=== PATIENT | female | born 1945 | race Caucasian/White ===

== ENCOUNTER 2021-12-13 17:49 | Emergency (ER) | payer MEDICARE, SELFPAY ==
--- NOTE | ~2021-12-13 | XR_ITS ---
EXAMINATION: XR knee LT min 4V DATE: 12/13/2021 18:15 INDICATION: Left knee pain TECHNIQUE: Four views of the left knee were obtained. COMPARISON: None. FINDINGS: Alignment is normal. No fracture or osteochondral lesion. There is mild tricompartmental os teoarthritis characterized by tiny marginal osteophytes. There is a small joint effusion. Calcified a therosclerosis is noted. IMPRESSION: 1. Osteoarthritis and small joint effusion without acute osseous abnormality identified. Reviewed, dictated and finalized at location F. IMPRESSION: 1. Osteoarthritis and small joint effusion without acute osseous abnormality id entified.
--- NOTE | 2021-12-13 18:02 | ED.LOWEXIN ---
HPI - Extremity Injury (Lower) General Chief Complaint: Extremity Injury, Lower Stated Complaint: left knee pain Time Seen by Provider: 12/13/21 18:02 Source: patient and RN notes reviewed Mode of arrival: ambulatory Limitations: no limitations History of Present Illness HPI Narrative: 76-year-old female presents to the [facility] with complaints of left knee pain. Patient states approximately noon today she went to get out of her chair and hyperextended her knee. Has taken ibuprofen and applied ice. Called her primary care provider was advised to go get an x-ray No swelling or bruising noted. Does have good range of motion. Related Data Home Medications Medication Instructions Recorded Confirmed amlodipine 5 mg tablet 5 mg PO DAILY 12/13/21 12/13/21 ezetimibe 10 mg tablet 10 mg PO DAILY 12/13/21 12/13/21 flecainide 100 mg tablet 100 mg PO DAILY 12/13/21 12/13/21 hydrochlorothiazide 12.5 mg capsule 12.5 mg PO DAILY 12/13/21 12/13/21 lisinopril 40 mg tablet 40 mg PO DAILY 12/13/21 12/13/21 magnesium oxide 400 mg (241.3 mg 400 mg PO DAILY 12/13/21 12/13/21 magnesium) tablet metformin 500 mg tablet 500 mg PO DAILY 12/13/21 12/13/21 simvastatin 20 mg tablet 20 mg PO DAILY 12/13/21 12/13/21 Allergies Allergy/AdvReac Type Severity Reaction Status Date / Time Penicillins Allergy Mild RASH Unverified 12/13/21 17:52 clindamycin Allergy Unknown rash Verified 12/13/21 17:52 Review of Systems Review of Systems: All systems reviewed & are unremarkable except as noted in HPI and below Constitutional: Constitutional: Reports no additional constitutional complaints, Denies chills and Denies fever(s) Eyes: Eyes: Reports no additional eye complaints ENT: Reports system reviewed and no additional complaints, except as documented Cardiovascular: Cardiovascular: Reports no additional cardiovascular complaints Respiratory: Respiratory: Reports no additional respiratory complaints Gastrointestinal: Gastrointestinal: Reports no additional gastrointestinal complaints Musculoskeletal: Musculoskeletal: Reports as per HPI and Reports arthralgias (left knee) Integumentary/Breasts: Skin/Breast: Reports system reviewed and no additional complaints, except as docu Neurologic: Reports system reviewed and no additional complaints, except as documented Psychiatric: Psychiatric: Reports no additional psychiatric complaints Allergic/Immunologic: Allergic/Immunologic: Reports no additional allergic/immunologic complaints [facility] Past Medical History Medical History (Updated 12/13/21 @ 18:38 by Brenda Perales APRN) High cholesterol History of high blood pressure Social History Social History (Updated 12/13/21 @ 18:36 by Brenda Perales APRN) Occupation/Education: retired Gender identity (if verbalized by the patient): Female Comments At the time of my signature, I reviewed and agree with the nursing past medical, surgical, social, and family history. There is no relevant family history pertinent to the patient complaint. Exam Const: General: healthy appearing, no acute distress and alert Nutritional Appearance: well nourished Orientation/consciousness: patient oriented x3 Limitations: no limitations HENMT: Head: normal to inspection Ears: external ears normal Eyes: General: appearance normal, both eyes and all related structures Pupils: Equal, round and reactive pupils present Neck: Neck: normal visual inspection, no lymphadenopathy and no meningeal signs Chest: Chest palpation & inspection: normal inspection of the chest Resp: Effort & Inspection: normal respiratory effort and no use of accessory muscles Auscultation: clear to auscultation bilaterally, no crackles, no rales, no rhonchi and no wheezes Cardio: Rate: regular rate Rhythm: regular rhythm Back/Spine/Pelvis: Cervical Spine: normal cervical lordosis Thoracic/Lumbar Spine: thoracic and lumbar spine normal to inspection Skin: General skin exam: normal
[2021-12-13 18:03] VITALS: BP 125/90; PULSE 72; RESP 16; TEMP 37.1; O2SAT 99
== END 2021-12-13 18:38 | disposition home or self-care (01) ==
PROVIDERS: Emergency Provider Nurse Practitioner
DX: M17.12 Unilateral primary osteoarthritis, left knee (principal); S86.912A Strain of unspecified muscle(s) and tendon(s) at lower leg level, left leg, initial encounter; X50.9XXA Other and unspecified overexertion or strenuous movements or postures, initial encounter; E78.00 Pure hypercholesterolemia, unspecified; I10 Essential (primary) hypertension
CPT/HCPCS: 73564; 99213; G0463

== ENCOUNTER 2024-12-03 10:50 | Outpatient (CLI) | payer MEDICARE, SELFPAY ==
--- NOTE | ~2024-12-03 | DEXA_ITS ---
Bone Density Report Name: SIMBA FARR Age: 79 Sex: Female Ethnicity: White Date of : 1945 Indication: postmenopausal; screening for osteoporosis; height loss; cancer; hysterectomy; Referring Provider: TALAT, MITCH Mosqueda Study: Bone densitometry was performed. Exam Date: December 03, 2024 Accession number: [id number] Bone Density: Region BMD T-score Z-score Classification AP Spine(L1-L4) 1.292 2.2 4.8 Normal Femoral Neck (Left) 0.578 -2.4 -0.2 Osteopenia Total Hip (Left) 0.712 -1.9 0.1 Osteopenia Femoral Neck (Right) 0.452 -3.6 -1.3 Osteoporosis Total Hip (Right) 0.737 -1.7 0.3 Osteopenia Total Hip Mean 0.725 -1.8 0.2 Osteopenia World Health Organization criteria for BMD impression classify patients as: Normal (T-score at or above -1.0), Osteopenia (T-score between -1.0 and -2.5), or Osteoporosis (T-score at or below -2.5). 10-year Fracture Risk: FRAX not reported because: Some T-score for Spine Total or Hip Total or Femoral Neck at or below -2.5 Clinical Information Provided by Patient: Has used the following medications: Vitamin D Has the following medical conditions: Cancer, Hysterectomy Patient maximum height was 63 Menopause Age: 33 No regular weight bearing exercise Drinks caffeinated beverages Onset of menses at age 18 Number of children 2 Impression: The patient has osteoporosis, based on the Right Femoral Neck T-score. Discussion: INCREASED RISK OF FRACTURE. BONE DENSITY IS UNDESIRABLY LOW AT ONE OR MORE SKELETAL SITES, CONSISTENT WITH POSTMENOPAUSAL OSTEOPOROSIS. This patient's lowest T-score meets the World Health Organization's (WHO) criteria for osteoporosis at one or more sites (T-score -2.5 or below). In untreated patients, the risk of osteoporotic fracture increases approximately two-fold for each 1.0 SD decrease in T-score. Low bone density is not the only risk factor for fracture; also consider factors such as patient's age, frailty or poor health, risk of falling, risk of injury, previous osteoporotic fracture, family history of osteoporosis, cigarette smoking, low body weight, etc. Not everyone with low bone mineral density has osteoporosis; osteomalacia and other metabolic bone disorders should also be considered. Patients who have osteoporosis should be evaluated for specific diseases and conditions (secondary causes) that may cause or contribute to bone loss. The [place] [employer]ocrin[employer] (AACE) and National Osteoporosis Foundation (NOF) recommend pharmacologic intervention for all postmenopausal women whose T-score is in this range. The patient should follow a healthful lifestyle (good nutrition with adequate calcium and vitamin D, and appropriate weight-bearing exercise). Follow-Up: Consider a repeat BMD and Vertebral Fracture Assessment (VFA) exam in 2 years or sooner if medically necessary, to reassess this patient's status. Reported by: EVER on 12/03/2024 11:27:00 AM. Reviewed, dictated and finalized at location A.
--- OUTSIDE RECORDS SUMMARY | 2024-12-03 10:54 | XMS_ITS | Referral Summary ---
Author Organization [facility] Address [address] [place] [id number] Care Team Providers Care Concrete Finishing Machine Operator Name Role Phone Robby Dia MD Unavailable [phone] Giana Torres MD Unavailable [phone] Mohit Ralph MD Unavailable Muriel Jimenez NP Unavailable Brock Peraza DO Unavailable [phone] Sydnee Sorensen NP Primary Care Provider Renae Brady Unavailable Encounters Date Type Department Care Team Description 12/02/2024 1:30 PM CDT Office Visit [facility] Medical [facility] Cardiology at [address] [place] [address] Mohit Ralph MD Coronary artery disease involving [place] coronary artery of [place] heart without angina pectoris (Primary Dx); Primary hypertension; Hyperlipidemia, unspecified hyperlipidemia type; Paroxysmal atrial fibrillation (HCC); Sleep apnea, obstructive 11/16/2024 Telephone [facility] Primary Care at [address] [address] Sydnee Sorensen NP Medical Question/Miscellaneous 09/20/2024 Telephone [facility] Primary Care at [address] [address] Sydnee Sorensen NP 09/06/2024 11:00 AM CDT Therapy [facility] OP Physical Therapy [address] [facility] [address] [place] [address] Numbness and tingling in both hands from Last 3 Months Allergies Active Allergy Reactions Criticality Noted Date Comments Clindamycin Rash Medium 03/25/2019 Penicillins Swelling,Rash Medium 03/25/2019 Childhood allergy Medications aspirin 81 mg chewable tablet Take 1 tablet (81 mg total) by mouth daily 30 tablet 2 025 Active hydroCHLOROthiazi de (HYDRODIURIL) 25 mg tablet Take 1 tablet (25 mg total) by mouth every morning 90 tablet 3 4 Active carvediloL (COREG) 6.25 mg tablet Take 1 tablet (6.25 mg total) by mouth 2 (two) times a day with meals 180 tablet 3 4 026 Active ezetimibe (ZETIA) 10 mg tablet Take 1 tablet (10 mg total) by mouth daily 90 tablet 3 4 Active rosuvastatin (CRESTOR) 40 mg tablet Take 1 tablet (40 mg total) by mouth nightly 90 tablet 3 4 Active blood-glucose meter kitIndications:Ty pe 2 diabetes mellitus without complication, without long-term current use of insulin (HCC) 1 each daily 1 kit 1 4 Active lancets miscIndications:E 11.9, A1c 6.4 on 07/09/23, not on insulin 1 each by other route as directed 100 each 11 4 Active blood glucose diagnostic (Freestyle InsuLinx Test Strips) stripIndications: Type 2 diabetes mellitus without complications (HCC),Type 2 diabetes mellitus without complication, without long-term current use of insulin (HCC) USE TO TEST BLOOD SUGAR ONCE DAILY 100 strip 3 4 Active furosemide (LASIX) 20 mg tabletIndications :Bilateral lower extremity edema TAKE 1 TABLET (20 MG TOTAL) BY MOUTH DAILY NEEDED (SWELLING). 90 tablet 2 5 Active magnesium oxide 400 mg magnesium tablet Take 400 mg by mouth 2 (two) times a day 180 tablet 1 5 Active semaglutide (Rybelsus) 7 mg tabletIndications :type 2 diabetes mellitus Take 1 tablet (7 mg total) by mouth daily before breakfast 90 tablet 1 5 Active metFORMIN XR (GLUCOPHAGE XR) 500 mg 24 hr tablet Take 2 tablets (1,000 mg total) by mouth daily with breakfast 180 tablet 3 5 026 Active lisinopriL (PRINIVIL,ZESTRIL ) 40 mg tablet Take 1 tablet (40 mg total) by mouth every morning 100 tablet 1 5 Active ergocalciferol (VITAMIN D) 50,000 unit capsuleIndication s:Malignant neoplasm of upper-inner quadrant of left breast in female, estrogen receptor positive (HCC),Malignant neoplasm of upper-outer quadrant of left breast in female, estrogen receptor positive (HCC),Ductal carcinoma in situ (DCIS) of left breast,Vitamin D deficiency,salvage determiner (current) use of aromatase inhibitors Take 1 capsule (50,000 Units total) by mouth once a week 12 capsule 5 025 Active semaglutide (Rybelsus) 3 mg tablet TAKE 1 TABLET (3 MG TOTAL) BY MOUTH SORT WORKER BEFORE BREAKFAST 100 tablet 1 5 025 Discontin ued(Alter deann therapy) Active Problems Problem Noted Date Diagnosed Date Bilateral lower extremity edema 05/27/2024 OAB (overactive bladder) 07/09/2023 Assessment & Plan (07/09/2023 5:10 PM [employer]): Chronic issue. Has more issues with nocturia but some daytime issues. Previously felt Deltrol was ineffective. Given her intermittent dizziness I would be hesitant to try alternative medications within that class. Discussed option to do a trial of Myrbetriq. Patient is aware that it may require prior authorization but hopefully insurance will approve it given she is failed to benefit from Detrol and is having symptoms that preclude the use of other anticholinergic type medications for her bladder Vitamin D deficiency 01/07/2023 Assessment & Plan (08/15/2024 12:26 PM [employer]): Last vit D 28. Continue supplementation Assessment & Plan (01/08/2024 3:21 PM CDT): Chronic. Check and replete as needed Carpal tunnel syndrome, bilateral 01/07/2023 Assessment & Plan (01/08/2024 3:28 PM CDT): Chronic. Mild nighttime symptoms. Consider use of wrist splints Assessment & Plan (07/09/2023 5:08 PM [employer]): Encouraged use of wrist splints with repetitive activity at night. No signs of thenar atrophy. Offered EMG nerve conduction studies to confirm diagnosis but patient defers. She will continue to monitor hand symptoms Class 3 severe obesity due t o excess calories with serious comorbidity and body mass index (BMI) of 45.0 to 49.9 in adult 09/03/2022 Assessment & Plan (08/15/2024 12:22 PM [employer]): BMI Follow-up includes: nutrition counseling and exercise counseling. Assessment & Plan (01/08/2024 3:21 PM CDT): Chronic. Suboptimally controlled and needs improvement. Counseled patient on regular exercise. Consider chair aerobics and low-impact activities. She was encouraged to work on diet and weight loss. Monitor Assessment & Plan (07/09/2023 5:08 PM [employer]): Chronic. Suboptimally controlled. Needs significant improvement. Counseled on healthy diet, exercise as able and weight loss. Encouraged patient to really work on diet and lifestyle changes to help with weight loss. Long-term if struggles we could always consider looking at use of a GLP 1 for her diabetes for the added weight loss benefit Dissection of ascending aorta 04/02/2022 Overview (04/02/2022): Pt stable and asymptomatic. Exam stable Now on oral beta mayelin Recommend: uptitrate carvediolol to 12.5 mg bid and follow BP and HR. DEN inhibitor Follow bp Recommend: Repeat CTA chest with contrast on 04/04 (unless new symptoms or other concerns). Assessment & Plan (08/15/2024 1:33 PM [employer]): Due for repeat scan in May 2025. Managed by cardiothoracic surgery, Dr. Patel. Currently on carvedilol, lisinopril Assessment & Plan (01/08/2024 3:28 PM CDT): Remote history of dissection of the aorta.. Treated nonoperatively and has resolved. She follows with Cardiothoracic specialists yearly Assessment & Plan (07/08/2023 6:37 PM [employer]): Chronic. Follows with cardiology/cardiothoracic surgery. Has CT angiogram completed a couple of months ago which shows that it was stable. They are just monitoring in recommending management of blood pressure. She will see him back in 1 year CAD (coronary artery disease) 03/10/2022 Overview (03/10/2022): Added automatically from request for surgery [id number] Assessment & Plan (08/15/2024 12:31 PM [employer]): Continue crestor and zetia, aspirin, Managed by cardiology Echo 10/09/23: Normal left ventricular systolic function. No focal wall motion abnormalities. Normal left ventricular size. Mild concentric left ventricular hypertrophy. Impaired diastolic relaxation Grade I. Ejection fraction is visually estimated at 60-65 %. Ejection fraction is measured at 65 %. There is mild enlargement of left atrium. Mild mitral annular calcification. Mild mitral valve regurgitation. Normal sinus rhythm. Assessment & Plan (01/08/2024 3:11 PM CDT): Chronic. Denies chest pain. Continue risk factor modification with ASA, rosuvastatin 40 mg, Zetia 10 mg, blood pressure control. Encouraged healthy diet, exercise and weight loss. Monitor Assessment & Plan (07/09/2023 5:06 PM [employer]): Chronic. Denies chest pain. Continue risk factor modification. On ASA, high- intensity statin in, Zetia. Continue care per cardiology work on blood pressure control History of breast cancer 04/26/2019 Malignant neoplasm of upper- inner quadrant of left breast in female, estrogen receptor positive 04/22/2019 Assessment & Plan (08/15/2024 1:36 PM [employer]): History of. Managed by oncology . Sees oncology 3/4- 5 years post treatment. Finished anastrozole tx. Assessment & Plan (01/08/2024 3:21 PM CDT): Chronic. Continue routine monitoring with Oncology. Continue Arimidex. No signs of recurrence Assessment & Plan (07/08/2023 6:37 PM [employer]): Chronic. Follows with Oncology. Remains on Arimidex. Doing well Osteopenia 12/20/2018 Assessment & Plan (08/15/2024 12:34 PM [employer]): Continue vit D supplementation. BMD ordered Assessment & Plan (01/08/2024 3:21 PM CDT): Reported remote diagnosis. She is past due for updated bone density. Ordered Atrial fibrillation 12/03/2018 Assessment & Plan (08/15/2024 12:31 PM [employer]): Sees cardio 12/02 Cardio is requesting records from [facility] heart [facility] vascular to hopefully help explain why she is not on anticoagulant given her CHADS-VASc score of 6 and history of atrial fibrillation. Due to mild bilateral lower extremity edema continue furosemide 20 mg daily p.r.n. edema Continue aspirin. Assessment & Plan (01/08/2024 3:19 PM CDT): Chronic. Controlled. Patient recently changed industrial automation specialist from [facility] to [facility] Cardiology. Cardiology at [facility] previously deferred NOAC but for unknown reason. She remains on aspirin. I see no contraindication from my standpoint to considering NOAC if her new industrial automation specialist feels it would be recommended. However, if patient does start having issues with increasing falls then we may need to stay with an aspirin. She has slight increased fall risk based on her STEADI score Assessment & Plan (07/09/2023 5:06 PM [employer]): Continue medication care per Cardiology. Denies any recent palpitations. Remains on ASA. Not currently on NOAC Hyperlipidemia 02/13/2017 Assessment & Plan (08/15/2024 12:21 PM [employer]): Last LDL 26. Continue crestor, zetia Assessment & Plan (01/08/2024 3:20 PM CDT): Chronic. Tolerates combination of rosuvastatin and ezetimibe. Check cholesterol level and adjust medications if needed Assessment & Plan (07/09/2023 5:06 PM [employer]): Chronic. On rosuvastatin and Zetia. LDL goal less than 70 Chronic. On ezetimibe and rosuvastatin 40 mg daily. Target LDL goal less than 70. Hypertension 02/13/2017 Assessment & Plan (08/15/2024 1:30 PM [employer]): BP stable today. Continue lisinopril, HCTZ, lasix, carvedilol. Has white coat hypertension. This morning's BP was good at home 127/71. Asked her to send us home blood pressures via [employer]. Assessment & Plan (01/08/2024 3:20 PM CDT): Chronic. Elevated in office but has been okay on home readings. She does have a degree of white coat hypertension. We will need to monitor blood pressure closely. Continue lisinopril as well as carvedilol Assessment & Plan (07/09/2023 5:07 PM [employer]): Chronic. Mildly elevated in office today but reports most home readings are under 140. Has ambulatory blood pressure monitoring cuff that since her readings to her industrial automation specialist for adjustment. I did encourage that she may want to bring her cuff to 1 of her visits so it can be calibrated to make sure it is still accurate Sleep apnea, obstructive 02/13/2017 Assessment & Plan (08/15/2024 1:34 PM [employer]): Chronic. Wears cpap. Managed by sleep management. -at [place] Assessment & Plan (01/08/2024 3:20 PM CDT): Chronic. Continue CPAP. Patient would like to see a new sleep medicine doctor for further evaluation. Referral provided Assessment & Plan (07/08/2023 6:37 PM [employer]): Chronic. Follows with sleep Medicine. Continue care per specialist Type 2 diabetes mellitus without complications 0 02/13/2017 Assessment & Plan (08/15/2024 12:21 PM [employer]): Labs ordered to recheck. Last A1c 7.0. continue metformin Assessment & Plan (01/08/2024 3:20 PM CDT): Chronic. Controlled. Check and adjust medication if needed. Continue metformin. Could consider addition of SGLT2 or GLP 1 medication for added health benefits if needed Assessment & Plan (07/09/2023 5:07 PM [employer]): Chronic. Diabetes is controlled on A1c. Continue metformin. Encouraged her to work on healthy diabetic diet, regular exercise and weight loss. Reiterated the importance of yearly diabetic eye exam for screening for retinopathy and looking for glaucoma. Patient denies any neuropathic symptoms in her feet but does have some symptoms in her hands. Hand symptoms are more characteristic of carpal tunnel syndrome Resolved Problems Problem Noted Date Diagnosed Date Resolved Date Dizziness and giddiness 07/09/202312/20 Assessment & Plan (07/09/2023 5:09 PM [employer]): Patient notes at times she feels slightly dizzy or unstable. She has difficulty characterizing. She denies sensation of near-syncope. She additionally denies vertiginous symptoms. She is unable to really describe what she feels. We will monitor for now. Advised if it worsens or she develops more significant symptoms to let me know. Patient was offered therapy script but she defers for now [facility] current use of amiodarone 09/03/2022 07/17/2023 Overview (01/07/2023): Recently weaned off in 2022 Non-ST elevation myocardial infarction (NSTEMI) 04/02/2022 09/03/2022 Overview (04/02/2022): Acute NSTEMI due to RCA occlusion. Pt stable and asymptomatic. Continue aspirin, statin, beta mayelin and ACEi I ordered follow up troponin and EKG. Follow on telemetry. Dissection of aorta 03/31/2022 09/04/19 23 Assessment & Plan (03/31/2022 1:33 PM CDT): 76y/o female with HTN, HLD, DM, recently diagnosed significant RCA disease who initially admitted to [facility] today for a LHC/RCA PCI as with recent angina symptoms. On first injection of the cath procedure, an ascending aortic dissection was caused. She was transferred to [facility] for emergent surgical intervention. Labs normal Last dose of plavix on 03/30 Type and cross 6u pRBCs/plts/FFP Planning for emergent type A dissection repair and 1V CABG to RCA with VG conduit. Dr. Patel explained the surgery in extent and consents obtained. Coronary artery disease, occlusive 03/31/2022 09/03/2022 Abnormal mammogram of left breast 03/25/2019 09/03/2022 Immunizations Immunization Administration Dates Next Due Influenza, Quadrivalent, Hig h Dose, Preservative Free, Intrr 04/06/2022,03/19/2021,03/17/2020 Influenza, Quadrivalent, Spl it, Intramuscular 04/10/2022,03/17/2020 Influenza, Trivalent, High D ose, Split, Preservative Free, Intramuscular 05/10/2024,06/23/2019,06/07/2018,05/27,04/03/2015 Influenza, Trivalent, Preser vative Free, Intramuscular 05/31/2013 Influenza, Unspecified 06/22/2023(Deferr ed: Patient Refused),06/22/2023(Deferred: Patient Refused),06/22/2022(Deferred: Patient Refused),03/19/2021 Pfizer SARS-CoV-2 Monovalent Vaccination (12+ Yrs) PURPLE 04/09/2021,09/03/2020,08/13/2020 Pneumococcal Conjugate PCV 13 12/20/2018 Pneumococcal Polysaccharide PPV23 07/05/2014 Tdap 01/14/2024,03/09/2012 ZOSTER Recombinant 01/14/2024 Social History Tobacco Use Types Packs/Day Years Used Date Smoking Tobacco: Never Passive Smoke Exposure: Past Smokeless Tobacco: Never Tobacco Cessation:Counseling Given: Not Answered Alcohol Use Standard Drinks/Week Comments Yes 1 (1 standard drink = 0.6 oz pur e alcohol) Social Connection and Isolat ion Panel [NHANES] Answer Date Recorded In a typical week, how many times do you talk on the phone with family, friends, or neighbors? More than three times a week 02/21/2022 How often do you get togethe r with friends or relatives? More than three times a week 02/21/2022 How often do you attend chur ch or adventism services? Never 02/21/2022 Do you belong to any clubs o r organizations such as scientology groups, unions, fraternal or athletic groups, or school groups? No 02/21/2022 How often do you attend meet ings of the clubs or organizations you belong to? Never 02/21/2022 Are you , , di vorced, , never , or living with a partner? 02/21/2022 AUDIT-C Answer Date Recorded Q1: How often do you have a drink containing alc ohol? Monthly or less 01/08/2024 Q2: How many drinks containi ng alcohol do you have on a typical day when you are drinking? 3 or 4 01/08/2024 Q3: How often do you have si x or more drinks on one occasion? Less than monthly 01/08/2024 Overall Financial Resource Strain (CARDIA) Answe r Date Recorded How hard is it for you to pa y for the very basics like food, housing, medical care, and heating? Not hard at all 02/21/2022 PHQ-2 Answer Date Recorded PHQ-2 Total Score (If total score is 3 or more points, staff should administer the PHQ-9) 1 01/08/2024 Hunger Vital Sign Answer Date Recorded Within the past 12 months, y ou worried that your food would run out before you got the money to buy more. Never true 02/22/20 22 Within the past 12 months, t he food you bought just didn't last and you didn't have money to get more. Never true 02/21/2022 PRAPARE - Transportation Answer Date Re corded In the past 12 months, has l ack of transportation kept you from medical appointments or from getting medications? No 07/2021 In the past 12 months, has l ack of transportation kept you from meetings, work, or from getting things needed for daily living? No 02/21/2022 Housing Stability Vital Sign Answer Dimitris e Recorded In the last 12 months, was t here a time when you were not able to pay the mortgage or rent on time? No 02/21/2022 In the last 12 months, how many places have you lived? 1 02/21/2022 In the last 12 months, was t here a time when you did not have a steady place to sleep or slept in a chcf (including now)? 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 file Not on file Not on file Last Filed Vital Signs Vital Sign Reading Time Taken Comments Blood Pressure 126/70 12/02/2024 1:20 PM CDT Pulse 65 12/02/2024 1:20 PM CDT Temperature 36.6 C (97.8 F) 08/15/2024 1:02 PM [employer] Respiratory Rate 18 08/15/2024 1:02 PM [employer] Oxygen Saturation 98% 12/02/2024 1:20 PM CDT Inhaled Oxygen Concentration - - Weight 114.3 kg (252 lb) 12/02/2024 1:20 PM CDT Height 157.5 cm (5' 2) 12/02/2024 1:20 PM CDT Body Mass Index 46.09 12/02/2024 1:20 PM CDT Plan of Treatment Not on file Procedures Procedure Name Priority Date/Time Associated Diagnosis Comments SCREENING MAMMOGRAM BILATERAL W OBI Schedule Routine, Read Routine (OP Routine) 08/23/2024 11:09 AM [employer] Malignant neoplasm of upper-inner quadrant of left breast in female, estrogen receptor positive (HCC) Encounter for screening mammogram for malignant neoplasm of breast HEMOGLOBIN A1C Routine 08/15/2024 2:01 PM [employer] Type 2 diabetes mellitus without complication, without long-term current use of insulin (HCC) LIPID PANEL Routine 08/15/2024 2:01 PM [employer] Hyperlipidemia associated with type 2 diabetes mellitus (HCC) ALBUMIN CREATININE RATIO, URINE Routine 08/15/2024 2:01 PM [employer] Type 2 diabetes mellitus without complication, without long-term current use of insulin (HCC) EGFR Routine 08/02/2024 2:50 PM [employer] Malignant neoplasm of upper-inner quadrant of left breast in female, estrogen receptor positive (HCC) Ductal carcinoma in situ (DCIS) of left breast HEPATITIS C ANTIBODY Routine 09/03/2022 3:52 PM CDT Encounter for hepatitis C screening test for low risk patient from Last 3 Months or Most Recently Relevant to Health Maintenance Results * Screening Mammogram Bilateral W Obi (08/23/2024 11:09 AM [employer]) Anatomical Region Laterality Modality Breast Bilateral Mammography Narrative 08/24/2024 9:11 AM [employer] Mammogram Technique: Bilateral Digital Breast Tomosynthesis, Bilateral C-view 2D Screening mammogram. Views obtained: bilateral craniocaudal and bilateral mediolateral oblique. Computer Aided Detection was performed. Mammogram Findings: The present examination has been compared to prior imaging studies performed at [facility] on 06/28/2021, 07/04/2022 and 08/18/2023. The breasts are almost entirely fatty. There are post breast conservation therapy changes in the left breast. There are no significant changes from the prior study. There is no suspicious abnormality in either breast. Impression: There is no mammographic evidence of malignancy. Annual screening mammography is recommended. OVERALL FINAL ASSESSMENT: BI-RADS CATEGORY 2: Benign. Procedure Note Sherry Granados MD - 08/24/2024 Mammogram Technique: Bilateral Digital Breast Tomosynthesis, Bilateral C-view 2D Screening mammogram. Views obtained: bilateral craniocaudal and bilateral mediolateral oblique. Computer Aided Detection was performed. Mammogram Findings: The present examination has been compared to prior imaging studies performed at [facility] on 06/28/2021, 07/04/2022 and 08/18/2023. The breasts are almost entirely fatty. There are post breast conservation therapy changes in the left breast. There are no significant changes from the prior study. There is no suspicious abnormality in either breast. Impression: There is no mammographic evidence of malignancy. Annual screening mammography is recommended. OVERALL FINAL ASSESSMENT: BI-RADS CATEGORY 2: Benign. Muriel Jimenez NP IMG MAMMO PROCEDURES Final Result * Albumin Creatinine Ratio, Urine (08/15/2024 2:01 PM [facility] [employer]) Albumin Ur 17.5 mg/L Comment: Interpretive Data No reference range established. Current interpretive data was last revised 2018. Creatinine Ur 63.2 mg/dL [facility] Comment: Interpretive Data No reference range established. Current interpretive data was last revised 2018. Albumin Creatinine Ratio, Ur 28 1 - 29 mg/g [facility] Urine 08/15/2024 2:01 PM [employer] [employer] 08/15/2024 10:06 PM [employer] Sydnee Sorensen NP LAB URINE ORDERABLES Final Re sult [facility] [address] Department [place] [address] * (ABNORMAL) Hemoglobin A1c (08/15/2024 2:01 PM [facility] [employer]) Hgb A1C 7.2(H) 4.0 - 5.6 % Estimated Average Glucose 160 mg/dL [facility] Comment: The ADA recommends reporting an estimated Average Glucose (eAG) with all Hemoglobin A1c results using the equation derived from a study of 507 normal and diabetic adults. Minority populations were underrepresented and children were not included. (Diabetes Care 31:6203-8089, 2008). The eAG is not equivalent to a fasting glucose. Blood 08/15/2024 2:01 PM [employer] 08/15/2024 10:06 PM [employer] Sydnee Sorensen NP LAB BLOOD ORDERABLES Final Re sult [facility] [id number] Department of Laboratories [place] [id number] * (ABNORMAL) Lipid panel (08/15/2024 2:01 PM [employer] [employer]) Cholesterol 90 30 - 199 mg/dL Comment: Interpretive Data Ages < or = 19 years Acceptable: <170 mg/dL Borderline high: 170-199 mg/dL High: >or= 200 mg/dL Ages > or = 20 years Desirable: <200 mg/dL Borderline high: 200-239 mg/dL High: >or= 240 mg/dL Literature References: 1. Expert Panel on Integrated Guidelines for Cardiovascular Health and Risk Reduction in Children and Adolescents. Pediatrics 2011;128:S213 2. NCEP Expert Panel. Circulation 2004;110:227 Current Interpretive Data was last revised on 2018. Triglycerides 154(H) <=149 mg/dL KIMANI MELTON Comment: Interpretive Data Ages < or = 9 years Acceptable: <75 mg/dL Borderline high: 75-99 mg/dL High: >or= 100 mg/dL Ages 10 to 20 years Acceptable: <90 mg/dL Borderline high: 90-129 mg/dL High: >or= 130 mg/dL Ages > or = 20 years Desirable: <150 mg/dL Borderline high: 150-199 mg/dL High: 200-499 mg/dL Very high: >or= 499 mg/dL Literature References: 1. Expert Panel on Integrated Guidelines for Cardiovascular Health and Risk Reduction in Children and Adolescents. Pediatrics 2011;128:S213 2. NCEP Expert Panel. Circulation 2004;110:227 Current Interpretive Data was last revised on 2018. HDL 38(L) >=40 mg/dL KIMANI MELTNO Comment: Interpretive Data Ages < or = 19 years Acceptable: >45 mg/dL Borderline low: 40-45 mg/dL Low: <40 mg/dL Ages > or = 20 years Desirable: >or= 60 mg/dL Low: <40 mg/dL Literature References: 1. Expert Panel on Integrated Guidelines for Cardiovascular Health and Risk Reduction in Children and Adolescents. Pediatrics 2011;128:S213 2. NCEP Expert Panel. Circulation 2004;110:227 Current Interpretive Data was last revised on 2018. LDL, calculated 26 <=129 mg/dL KIMANI MELTON Comment: Interpretive Data Ages < or = 19 years Acceptable: <110 mg/dL Borderline high: 110-129 mg/dL High: >or= 130 mg/dL Ages > or = 20 years Optimal: <100 mg/dL Near optimal: 100-129 mg/dL Borderline high: 130-159 mg/dL High: >160 mg/dL Calculated using the German LDL-C estimating equation. This equation was implemented on 2024. Prior to this date LDL-C was estimated using the Friedewald equation. Literature References: 1. Expert Panel on Integrated Guidelines for Cardiovascular Health and Risk Reduction in Children and Adolescents. Pediatrics 2011;128:S213 2. NCEP Expert Panel. Circulation 2004;110:227 3. German Landry et al. RACQUEL Cardiol. 2019October 20;5(5):540-548. doi: 10.1001/[email or web address].2020.0013 Current Interpretive Data was last revised on 2024. Non-HDL Cholesterol 52 mg/dL KIMANI MELTON Comment: Interpretive Data Ages < or = 19 years Acceptable: <120 mg/dL Borderline high: 120-144 mg/dL High: >145 mg/dL Ages > or = 20 years When triglycerides are >200 mg/dL, Non-HDL cholesterol is a secondary target of therapy with treatment goals that are 30 mg/dL greater than the LDL cholesterol target. Literature References: 1. Expert Panel on Integrated Guidelines for Cardiovascular Health and Risk Reduction in Children and Adolescents. Pediatrics 2011;128:S213 2. NCEP Expert Panel. Circulation 2004;110:227 Current Interpretive Data was last revised on 2018. Chol/HDL ratio 2 KIMANI MELTON Blood 08/15/2024 2:01 PM [employer] 08/15/2024 10:06 PM [employer] Sydnee Sorensen NP LAB BLOOD ORDERABLES Final Re sult KIMANI [address] [facility] Department [place] [address] * eGFR (08/02/2024 2:50 PM [facility] [employer]) eGFR 75 >=60 mL/min/1. 73 m2 Comment: Interpretive Data Reference Interval Normal >/= 90 mL/min/1.73m2 Mildly decreased* 60 - 89 mL/min/1.73m2 Mildly to moderately decreased 45 - 59 mL/min/1.73m2 Moderately to severely decreased 30 - 44 mL/min/1.73m2 Severely decreased 15 - 29 mL/min/1.73m2 Kidney Failure < 15 mL/min/1.73m2 *Relative to young adult level Estimated glomerular filtration rate is determined by the 2020 CKD-EPI equation recommended by the National Kidney Foundation (A Unifying Approach to GFR Estimation: Recommendations of the NKF-ASK Task Force on Reassessing the Inclusion of Race in Diagnosing Kidney Disease, JASN 2020). The CKD-EPI equation should not be used for patients with unstable renal function and has not been validated in children and those over 70. Current interpretive data was last reviewed 2021. Testing performed by: [facility], [address] [place] [address]., [id number] Blood 08/02/2024 2:50 PM [employer] 08/02/2024 2:53 PM [employer] Kimberli Vasquez NP LAB BLOOD ORDERABLES Final Result Performing Organization Address [facility] Co de Phone Number KIMANI [address] [facility] [place] [address] * Hepatitis C antibody (09/03/2022 3:52 PM CDT) Pathologist [facility] Hep C Ab Nonreactive Nonreactive KIMANI Comment: Interpretive Data Nonreactive: Antibodies to HCV not detected. Does NOT exclude the possibility of recent exposure to HCV. Equivocal: Equivocal for HCV antibodies. Supplemental molecular testing will be automatically performed to determine infection status in accordance with current CDC screening recommendations. Reactive: Positive for HCV antibodies. This may represent current or past HCV infection. Supplemental molecular testing will be automatically performed to determine current infection status in accordance with current CDC screening recommendations. Interpretive data was last revised on 2019. Blood 09/03/2022 3:52 PM CDT 09/03/2022 6:38 PM CDT Chantal Knowles MD LAB MICROBIOLOGY - GEN ERAL ORDERABLES Final Result Performing Organization Address City/State/ZIP Co nm Phone Number KIMANI [phone] [place] [address] from Last 3 Months or Most Recently Relevant to Health Maintenance Insurance MEDICARE [facility] MEDICARE SUPPLEMENT MEDICARE [employer]UE [employer]OSS MEDICARE SUPPLEMENT MEDICARE Advance Directives For more information, please contact: [phone] * Full Code (Latest Code Status on File) Date Activated Date Inactivated Comments 03/31/2022 2:48 PM 04/06/2022 6:57 PM 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 Start Date End Date Sydnee Sorensen NP [address] [facility] [address] [place] [address] PCP - General Family Medicine 08/02/24 [place] [address] [address] [facility] [address], [place] [address] Consulting Physician Cardiology 09/03/22 Giana Torres MD [address] [place] [address] [address] [place] [address] Referring Physician Cardiology 01/08/24 Mohit Ralph MD [address] [facility] [address], [address] [address] Consulting Physician Cardiology 01/08/24 Muriel Jimenez NP [address] [facility] [address], [address] [address] Nurse Practitioner 01/08/24 Brock Peraza DO [address] [place] [address] MEDICAL ONCOLOGY, [address] [address] Medical Oncologist/Freelance Recruiter Hematology and Oncology 08/02/24 Renae Brady PA [address] [id number] Physician Loan Processing Supervisor 08/15/24
--- OUTSIDE RECORDS SUMMARY | 2024-12-03 10:54 | XMS_ITS | Data Portability ---
Author Organization [place] [facility], Main Office Address [address] [place] [address] Care Team Providers Care Health Insurance Assessor Name Role Phone BILL BARNES Primary Care Provider [phone] Assessment No assessment recorded. Plan of Treatment Reminders Order Date Submit Date Provider Last Modified By Organization Details Last Modified Time Details Appointments None record ed. Lab None record ed. Referral None record ed. Procedures None record ed. Surgeries None record ed. Imaging None record ed. Medication Orders None record ed. Patient TargetsNo targets recorded. Patient InstructionsNo instructions recorded. Reason for Referral None Reported. Results Created Date Observation Date Name Description Value Unit Range Abnormal Flag Note LastModifiedBy Organization Detail LastModifiedTime 03/31/2003/31/2022 CT, angio gram, abdom en, w/ contr ast No observ ation record ed. [id number] [facility] [address], [place], [address], 08/20/2022 02:51:52 11/14/19 23 11/12/2022 trans -thor acic echoc ardio gram (TTE) (PROC ) No observ ation record ed. [email or web address] [facility] [address], [place], [address], 11/19/2022 09:58:25 11/14/19 23 11/12/2022 US, doppl er, arter ial No observ ation record ed. [email or web address] [facility] [address], [place], [address], 11/19/2022 10:06:47 Result Notes None recorded. Problems Name Problem SNOMED Code Status Onset Date Resolution Date Notes Provider Name and Address Organization Details Recorded Time Restless sleep 84663623 Active 2021 Not Available [facility] 3 02:45:55 Impaired dentition 187131519 Active Not Available [facility] 3 02:45:55 Constipati on 34584776 Active 2018 Not Available [facility] 3 02:45:55 Increased frequency of urination 312325180 Completed Not Available [facility] 3 02:45:55 Body mass index 30+ - obesity 882029535 Active 2017 Not Available [facility] 3 02:45:55 Osteopenia 078820094 Active 2018 Not Available [facility] 3 02:45:55 Type 2 diabetes mellitus without complicati on 499488060 Active Not Available [facility] 3 02:45:55 Bronchitis 26711562 Completed Not Available [facility] 3 02:45:56 Vitamin D deficiency 15204603 Active Not Available [facility] 3 02:45:56 At increased risk for cardiovasc ular event 549985617 Active 2019 Not Available [facility] 3 02:45:56 Pharyngiti s 285035906 Completed Not Available [facility] 3 02:45:56 History of malignant neoplasm of breast 605146848 Active 2020 Not Available [facility] 3 02:45:56 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 26809758 Active 2021 Not Available [facility] 3 02:45:56 Hyperlipid emia 49899498 Active Not Available [facility] 3 02:45:56 Essential hypertensi on 87233038 Active Not Available [facility] 3 02:45:56 Gingivitis 20921013 Active Not Available [facility] 3 02:45:56 Hypercalce jeanna 89464757 Active Not Available [facility] 3 02:45:56 Diabetes mellitus 53334056 Completed Not Available [facility] 3 02:45:56 Sleep apnea 74620137 Active 2018 Not Available [facility] 3 02:45:57 Obstructiv e sleep apnea syndrome 74005680 Active 2017 Not Available [facility] 3 02:45:57 Problem Notes None recorded. Procedures Surgical History Date Name Laterality Status Provider Name and Address Organization Details Recorded Time Cholecystectomy completed Not Available [facility] 08/20/2022 02:41:01 Hysterectomy, Partial completed Not Available [facility] 08/20/2022 02:41:01 Hernia Repair completed Not Available [facility] 08/20/2022 02:41:01 Colonoscopy completed Not Available [facility] 08/20/2022 02:41:01 Imaging Results None recorded. Procedure Notes None recorded. Medical Equipment None Reported. Allergies Allergen ID Allergen Name Allergen Category Reaction Reaction Severity Criticality Documentation Date Start Date Code Code System Note Provider Name and Address Organization Details Recorded Time 3877 Product containin g penicilli n (product) medicatio n Not available Not available Not available 08/20/2022 12774 8001 SNOMED Not Available [facility] 3 02:51:27 Medications Name Sig Start Date Stop Date Status Note LastModified by Organization Details LastModified Time silver sulfadiazin e 1 % topical cream APPLY A 1/16 INCH (1.5 MM) THICK LAYER TO ENTIRE BURN AREA BY TOPICAL ROUTE 2 TIMES PER DAY 07/24 completed Not Available Not Available Not Available metformin 500 mg tablet TAKE 1 TABLET BY MOUTH EVERY DAY WITH BREAKFAST active Not Available Not Available No t Available anastrozole 1 mg tablet TAKE 1 TABLET BY MOUTH EVERY DAY active Not Available Not Available No t Available carvedilol 6.25 mg tablet TAKE 1 TABLET BY MOUTH TWICE A DAY active Not Available Not Available No t Available doxycycline hyclate 100 mg capsule Take 1 capsule twice a day by oral route for 10 days. active Not Available Not Available No t Available ibuprofen 800 mg tablet 05/27 completed Not Available Not Available Not Available fluconazole 150 mg tablet TAKE 1 TABLET BY MOUTH EVERY DAY FOR 1 DAY 02/25 completed Not Available Not Available Not Available amiodarone 200 mg tablet active Not Available Not Available Not Available benzonatate 200 mg capsule TAKE 1 CAPSULE BY MOUTH THREE TIMES A DAY NEEDED FOR COUGH active Not Available Not Available No t Available tolterodine 1 mg tablet TAKE 1 TABLET BY MOUTH EVERY DAY NIGHTLY active Not Available Not Available No t Available minocycline 100 mg capsule TAKE 1 CAPSULE BY MOUTH TWICE A DAY active Not Available Not Available No t Available FreeStyle Lancets 28 gauge USE DIRECTED TEST ONCE DAILY DX E11.9 active Not Available Not Available No t Available metronidazo le 0.75 % (37.5 mg/5 gram) vaginal gel INSERT 1 APPLICATO R(S)FUL EVERY DAY BY VAGINAL ROUTE FOR 5 DAYS. active Not Available Not Available No t Available ondansetron HCl 4 mg tablet 07/24 completed Not Available Not Available Not Available Zithromax Z-Leandro 250 mg tablet Take 2 TABLET EVERY DAY by oral route for 1 day then take 1 daily for 4 days 07/05 completed Not Available Not Available Not Available clindamycin HCl 150 mg capsule 05/27 completed Not Available Not Available Not Available acetaminoph en 300 mg-codeine 30 mg tablet 12/07 completed Not Available Not Available Not Available clopidogrel 75 mg tablet 04/09 completed Not Available Not Available Not Available ciprofloxac in 250 mg tablet Take 1 tablet twice a day by oral route for 5 days. active Not Available Not Available No t Available amlodipine 5 mg tablet TAKE 1 TABLET TWICE A DAY DIRECTED active Not Available Not Available No t Available acyclovir 400 mg tablet TAKE 1 TABLET BY MOUTH TWICE A DAY active Not Available Not Available No t Available tramadol 50 mg tablet 01/07 completed Not Available Not Available Not Available magnesium oxide 400 mg (241.3 mg magnesium) tablet TAKE 1 TABLET BY MOUTH TWICE A DAY active Not Available Not Available No t Available amlodipine 10 mg tablet TAKE 1/2 TABLET BY MOUTH DAILY active Not Available Not Available No t Available doxycycline monohydrate 100 mg capsule TAKE 1 CAPSULE BY MOUTH TWICE A DAY FOR 7 DAYS active Not Available Not Available No t Available bisacodyl 10 mg rectal suppository USE DIRECTED 01/07 completed Not Available Not Available Not Available simvastatin 20 mg tablet TAKE 1 TABLET DAILY 04/09 completed Not Available Not Available Not Available flecainide 100 mg tablet TAKE 1 TABLET BY MOUTH TWICE A DAY 04/09 completed Not Available Not Available Not Available hydrochloro thiazide 12.5 mg capsule active Not Available Not Available Not Available oxybutynin chloride ER 5 mg tablet,exte nded release 24 hr TAKE 1 TABLET BY MOUTH EVERYDAY AT BEDTIME active Not Available Not Available No t Available aspirin 81 mg chewable tablet active Not Available Not Available Not Available hydrochloro thiazide 25 mg tablet TAKE 1 TABLET BY MOUTH EVERY DAY active Not Available Not Available No t Available gabapentin 100 mg capsule TAKE 1 CAPSULE BY MOUTH THREE TIMES A DAY active Not Available Not Available No t Available ergocalcife rol (vitamin D2) 1,250 mcg (50,000 unit) capsule TAKE 1 CAPSULE BY MOUTH ONE TIME PER WEEK 01/07 completed Not Available Not Available Not Available levofloxaci n 500 mg tablet active Not Available Not Available Not Available letrozole 2.5 mg tablet TAKE 1 TABLET BY MOUTH EVERY DAY 09/16 completed Not Available Not Available Not Available methylpredn isolone 4 mg tablets in a dose pack 05/27 completed Not Available Not Available Not Available albuterol sulfate HFA 90 mcg/actuati on aerosol inhaler TAKE 2 PUFFS BY MOUTH EVERY 6 HOURS NEEDED FOR WHEEZE OR FOR SHORTNESS OF BREATH active Not Available Not Available No t Available lisinopril 40 mg tablet TAKE 1 TABLET DAILY active Not Available Not Available No t Available tamoxifen 20 mg tablet 11/09 completed Not Available Not Available Not Available ezetimibe 10 mg tablet TAKE 1 TABLET BY MOUTH EVERY DAY active Not Available Not Available No t Available rosuvastati n 40 mg tablet active Not Available Not Available Not Available nitrofurant oin monohydrate /macrocryst als 100 mg capsule TAKE 1 CAPSULE BY MOUTH EVERY 12 HOURS FOR 5 DAYS 02/25 completed Not Available Not Available Not Available Cinnamon 500 mg capsule Take 2 capsules every day by oral route. 03/07 completed Not Available Not Available Not Available Fish Oil 1200MG DAILY 06/23 completed Not Available Not Available Not Available amlodipine 20 MG po daily 12/04 completed Not Available Not Available Not Available Vitamin D3 5000 units daily 12/16 completed Not Available Not Available Not Available hydrochloro thiazide 12.5 mg tablet TAKE 1 TABLET DAILY DIRECTED active Not Available Not Available No t Available GaviLyte-N 420 gram oral solution USE DIRECTED 01/07 completed Not Available Not Available Not Available Vitamin D 5,000 unit tablet Take 1 tablet every day by oral route. 03/07 completed Not Available Not Available Not Available Vitamin D3 50 mcg (2,000 unit) capsule Take 1 capsule every day by oral route. 12/04 completed Not Available Not Available Not Available Freestyle InsuLinx Test Strips USE TO TEST BLOOD SUGARS ONCE DAILY DIRECTED active Not Available Not Available No t Available Vascepa 1 gram capsule Take 2 capsules twice a day by oral route for 90 days. 01/07 completed Not Available Not Available Not Available Fish Oil 1,000 mg (120 mg-180 mg) capsule Take 1 capsule every day by oral route. 03/07 completed Not Available Not Available Not Available Fluzone High-Dose Quad (PF) 240 mcg/0.7 mL IM syringe PHARMACY ADMINISTE RED 07/24 completed Not Available Not Available Not Available Vitals Date Recorded Body height Body mass index (BMI) Body weight Heart rate Oxygen saturation Oxygen saturation in Arterial blood by Pulse oximetry Systolic blood pressure Diastolic blood pressure Provider Name and Address Organization Details Last Updated DateTime 3 160.02 cm 43.4 kg/m2 043195. 13 g 62 /min 97 % 97 % 124 mm[Hg] 52 mm[Hg] Jazmyne [facility] 3 14:24:13 Date Recorded Body height Body mass index (BMI) Body weight Body temperature Heart rate Oxygen saturation Oxygen saturation in Arterial blood by Pulse oximetry Systolic blood pressure Diastolic blood pressure Provider Name and Address Organization Details Last Updated DateTime 3 160.02 cm 42.9 kg/m2 647631. 35 g 96.3 [degF] 60 /min 95 % 95 % 136 mm[Hg] 60 mm[Hg] Jazmyne [facility] 3 14:27:57 Date Recorded Body height Body mass index (BMI) Body weight Body temperature Heart rate Oxygen saturation Oxygen saturation in Arterial blood by Pulse oximetry Systolic blood pressure Diastolic blood pressure Provider Name and Address Organization Details Last Updated DateTime 3 160.02 cm 42.9 kg/m2 305244. 35 g 98.3 [degF] 56 /min 98 % 98 % 150 mm[Hg] 60 mm[Hg] Jazmyne Avery [facility] [employer] [facility] 3 12:24:16 Date Recorded Body mass index (BMI) Body height Oxygen saturation Oxygen saturation in Arterial blood by Pulse oximetry Heart rate Body temperature Body weight Systolic blood pressure Diastolic blood pressure Provider Name and Address Organization Details Last Updated DateTime 2 39.9 kg/m2 160.02 cm 99 % 99 % 54 /min 97.4 [degF] 483386. 28 g 120 mm[Hg] 64 mm[Hg] Not Available [facility] 3 02:43:30 Date Recorded Body mass index (BMI) Body height Oxygen saturation Oxygen saturation in Arterial blood by Pulse oximetry Heart rate Body temperature Body weight Systolic blood pressure Diastolic blood pressure Provider Name and Address Organization Details Last Updated DateTime 2 41.5 kg/m2 160.02 cm 95 % 95 % 73 /min 98.1 [degF] 660272. 61 g 126 mm[Hg] 80 mm[Hg] Not Available [facility] 3 02:43:30 Social History Question Answer Notes LastModified by [employer] Details LastModified Time Tobacco Smoking Status Former Smoker Jazmyne Avery [facility] [employer] [facility] 03/18/2023 12:22:33 What Is Your Level Of Caffeine Consumption? Moderate [id number] Information not available 08/20/2022 How Much Tobacco Do You Chew? None [id number] Information not available 08/20/2022 Which Illicit Or Recreational Drugs Have You Used? None [email or web address] Information not available 03/18/2023 When Did You Quit Smoking? 16+yearssince lastcigarette [email or web address] Information not available 03/18/2023 Do You Have Any Pets? No Information not available 03/18/2023 Sex: Unknown Functional Status Question Answer Note LastModified by [employer] Details LastModified Time Do you use any illicit or recreational drugs? No [email or web address] Information not available 03/18/2023 What is your level of alcohol consumption? Occasional [id number] Information not available 08/20/2022 Do you or have you ever used smokeless tobacco? Never used smokeless tobacco [id number] Information not available 08/20/2022 What is your occupation? RETIRED [email or web address] Information not available 03/18/2023 Do you or have you ever used e-cigarettes or vape? Never used electronic cigarettes [email or web address] Information not available 03/18/2023 What is your exercise level? Occasional [id number] Information not available 08/20/2022 Mental Status None recorded. Family History Relationship Description Onset Age of this Age Resolved Age Notes LastModified by Organization Details LastModified Time Mother Cerebrovascu lar accident [id number] Not available 08/20/2022 02:41:04 Father Ulcer [id number] Not available 08/20/2022 02:41:04 Medical History Condition Response DIABETES, TYPE Y HEARTBURN / REFLUX Y HYPERTENSION Y HIGH CHOLESTEROL / HYPERLIPIDEMIA Y Gynecological HistoryNo gynecological history recorded. Obstetrics History GPAL:G 0 P 0 0 0 0 Immunizations Vaccine Type Date Status Note Provider Nam e and Address Organization Details Recorded Time COVID-19, mRNA, LNP-S, PF, 30 mcg/0.3 mL dose 1 completed Not Available [facility] 08/20/2022 02:51:08 COVID-19, mRNA, LNP-S, PF, 30 mcg/0.3 mL dose 1 completed Not Available [facility] 08/20/2022 02:51:08 Influenza, split virus, quadrivalent, preservative 0 completed Not Available [facility] 08/20/2022 02:51:09 Influenza, split virus, quadrivalent, preservative 2 completed Not Available [facility] 08/20/2022 02:51:09 Tdap 2 completed Not Available [facility] 08/20/2022 02:51:09 Influenza, high-dose, quadrivalent, PF 1 completed Not Available [facility] 08/20/2022 02:51:09 Influenza, high-dose, trivalent, PF 0 completed Not Available [facility] 08/20/2022 02:51:09 Pneumococcal conjugate PCV 13 9 completed Not Available [facility] 08/20/2022 02:51:09 Influenza, high-dose, trivalent, PF 8 completed Not Available [facility] 08/20/2022 02:51:09 Influenza, high-dose, trivalent, PF 7 completed Not Available [facility] 08/20/2022 02:51:09 Influenza, high-dose, trivalent, PF 5 completed Not Available [facility] 08/20/2022 02:51:09 pneumococcal polysaccharide PPV23 5 completed Not Available [facility] 08/20/2022 02:51:10 Influenza, split virus, trivalent, PF 3 completed Not Available [facility] 08/20/2022 02:51:10 Past Encounters Encounter ID Performer Location Encounter Start Date Encounter Closed Date Diagnosis/Indication Diagnosis SNOMED-CT Code Diagnosis ICD10 Code Diagnosis Note [id number] [facility] [place] [address] [place] [address] 09/13/2020 00:00:00 09/13/2020 21:50:23 [id number] Cole Cardenas MD [facility] [place] [address] [place] [address] 01/07/2021 00:00:00 01/07/2021 12:17:53 [id number] [facility] [place] [address] [place] [address] 03/12/2021 00:00:00 03/12/2021 16:46:50 [id number] Cole Cardenas MD [facility] [place] [address] [place] [address] 03/19/2021 00:00:00 03/19/2021 14:36:22 [id number] Cole Cardenas MD [facility] [place] [address] [place] [address] 04/30/2021 00:00:00 04/30/2021 10:57:30 [id number] Cole Cardenas MD [facility] [place] [address] [place] [address] 09/16/2021 00:00:00 09/16/2021 14:29:42 [id number] [facility] [place] [address] [place] [address] 02/25/2022 00:00:00 02/25/2022 15:14:31 [id number] Nette Harvey [facility] [place] [address] [place] [address] 04/09/2022 00:00:00 04/09/2022 13:27:35 [id number] Cole Cardenas MD [facility] [place] [address] [facility] [place] [address] 04/14/2022 00:00:00 04/14/2022 14:21:00 [id number] Nette Harvey [facility] [place] [address] [place] [address] 10/08/2022 14:15:57 10/08/2022 15:09:37 Obstructive sleep apnea syndrome 98525612 G47.33 Study done 03/2017 with an AHI of 37.1.Remai ns on CPAP pressure 9 cm H2O with 96.7% use greater than 4 hoursAHI is 0.4She has excellent use and clinical benefitNew machine 04/2022I have instructed her to turn the humidity offAlso will send for facial ID link for best mask fitContinu e current settings.S he has good use and benefitOSA is well correctedE ncouraged 100% compliance with all sleepFollo w with PCM for labsAdvise d good sleep habits and patterns:- Set a goal for at least 7 to 8 hours of sleep time per day.-Use the bed mainly for sleep and to go to bed only when tired.If unable to fall asleep after 30 minutes, she should get out of bed but should not engage in any activity that requires sustained mental alertness. -Maintain a regular bedtime and wake-up time even on weekends-A void excessive naps during the daytime. If a nap is necessary, limit it to no more than 30 minutes.-M inimize environmen blue noise, bright lights, and extremes in bedroom temperatur e.-Avoid alcohol, caffeinate d beverages, and nicotine products for at least 6 hours prior to bedtime.-A void strenuous exercise and large meals for at least 4 hours prior to bedtime.We have discussed reportable signs and symptoms.R TC in 2 months, PRN for concerns [id number] ASHELY Lynne-[facility] [facility] [place] [address] [place] [address] 12/09/2022 14:09:45 12/09/2022 15:06:38 Obstructive sleep apnea syndrome 04659013 G47.33 Study done 03/2017 with an AHI of 37.1.Remai ns on CPAP pressure 9 cm H2O with only 20% use greater than 4 hoursAHI is 0.7New machine 04/2022Wil l switch to APAP pressures 4-9She has good use and benefitOSA is well correctedE ncouraged 100% compliance with all sleepFollo w with PCM for labsAdvise d good sleep habits and patterns:- Set a goal for at least 7 to 8 hours of sleep time per day.-Use the bed mainly for sleep and to go to bed only when tired.If unable to fall asleep after 30 minutes, she should get out of bed but should not engage in any activity that requires sustained mental alertness. -Maintain a regular bedtime and wake-up time even on weekends-A void excessive naps during the daytime. If a nap is necessary, limit it to no more than 30 minutes.-M inimize environmen blue noise, bright lights, and extremes in bedroom temperatur e.-Avoid alcohol, caffeinate d beverages, and nicotine products for at least 6 hours prior to bedtime.-A void strenuous exercise and large meals for at least 4 hours prior to bedtime.We have discussed reportable signs and symptoms.R TC in 2 months, PRN for concerns [id number] ASHELY Lynne-[facility] [facility] Breanne Espinoza [address] [place] [address] 03/18/2023 12:13:16 03/18/2023 14:28:13 Obstructive sleep apnea syndrome 90067325 G47.33 Study done 03/2017 with an AHI of 37.1.Remai ns on CPAP pressure 9 cm H2O with 80% use greater than 4 hoursAHI is 1.0New machine he has good use and benefitOSA is well correctedE ncouraged 100% compliance with all sleepFollo w with PCM for labsAdvise d good sleep habits and patterns:- Set a goal for at least 7 to 8 hours of sleep time per day.-Use the bed mainly for sleep and to go to bed only when tired.If unable to fall asleep after 30 minutes, she should get out of bed but should not engage in any activity that requires sustained mental alertness. -Maintain a regular bedtime and wake-up time even on weekends-A void excessive naps during the daytime. If a nap is necessary, limit it to no more than 30 minutes.-M inimize environmen blue noise, bright lights, and extremes in bedroom temperatur e.-Avoid alcohol, caffeinate d beverages, and nicotine products for at least 6 hours prior to bedtime.-A void strenuous exercise and large meals for at least 4 hours prior to bedtime.We have discussed reportable signs and symptoms.S he should follow up in one year, PRN for concerns Health Concerns Section Related Observation LastModified by Organization Detai ls LastModified Time None Recorded Concern Status LastModified by Organization Details LastModified Time None Recorded Advance Directives Directive None Recorded Payers Insurance Date Sequence Insurance Name Policy Number Policy Sánchez Covered Member ID Sánchez Member ID Guarantor Name 03/15/2023 1 [place] Maddison Sam [id number] Maddison Sam 03/16/2023 2 [place] [id number] Maddison Sam [id number] Maddison Sam Notes Date Note Type Note Provider Name and Address Organization Details Recorded Time 10/08/2022 text/html Maddison presents t moriah with her daughter Meaghan to follow up on RUPAL and new PAPContinues to have difficulty with use, she tells me she has moisture build up in her mask and wakes with water pooling by her eyes.Reports that she has had multiple attempts at troubleshooting with the [employer], she has had good interaction with Mitch.In addition she has had mask changesContinues to report wetness around the bridge of her nose and mouth as wellHas adjusted humidity multiple timesTaryn is requesting a new mask option today, she was fitted when she had her false teeth in but does not wear them to sleep ASHELY Lynne- [address], [address], [place], [address], Months Of Me 10/08/2022 17:14:46 12/09/2022 text/html Maddison presents t moriah on RUPAL and new PAPContinues to have difficulty with use, feels like her pressure is too high.Reports that she has had multiple attempts at troubleshooting with the [employer] and has mutiple masks.She has turned off her humidityShe has restless sleep and fatigue.Energy levels are fair.Feels like a mask will work good for several nights but the starts to irritate her Nette ASHELY Harvey- [address], [address], [place], [address], Months Of Me 12/09/2022 15:37:11 03/18/2023 text/html Maddison presents t moriah on OSAShe tells me that her pressure is better and she has nightly use.Does not like this machine as much as her old ResMedShe has turned off her humidityShe has restless sleep and fatigue. but this has been improvingEnergy levels are fair.Does not wake at night R/T mask leak or fatigue GINNY Lynne [address], [address], [place], [address], Months Of Me 03/18/2023 21:16:56 OBGyn Episode No OBEpisode recorded.
--- OUTSIDE RECORDS SUMMARY | 2024-12-03 10:54 | XMS_ITS | Encounter Summary ---
Author Organization [facility] Healthcare Address [address] [place] [address] Care Team Providers Care Ladle Patcher Name Role Phone Robby Dia MD Unavailable [phone] Giana Torres MD Unavailable [phone] Mohit Ralph MD Unavailable Muriel Jimenez NP Unavailable Brock Peraza DO Unavailable [phone] Sydnee Sorensen NP Primary Care Provider Renae Brady Unavailable Reason for Visit * Reason Comments Follow-up 6 mo follow up on HT N, CAD, PAF, HLD, RUPAL, edema Encounter Details Date Type Department Care Team (Latest Contact Info) Description 12/02/2024 1:30 PM CDT Office Visit [facility] Medical [facility] Cardiology at [address] [place] [address] Mohit Ralph MD [address] [facility] [place] [address] [facility] [address], [address] [place] [address] Coronary artery disease involving [place] coronary artery of [place] heart without angina pectoris (Primary Dx); Primary hypertension; Hyperlipidemia, unspecified hyperlipidemia type; Paroxysmal atrial fibrillation (HCC); Sleep apnea, obstructive Social History Tobacco Use Types Packs/Day Years Used Date Smoking Tobacco: Never Passive Smoke Exposure: Past Smokeless Tobacco: Never Alcohol Use Standard Drinks/Week Comments Yes 1 [...] often do you attend chur ch or gnosticist services? Never 02/21/2022 Do you belong to any clubs o r organizations such as congregation groups, unions, fraternal or athletic groups, or [...] place to sleep or slept in a senior living (including now)? 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 Gender Identity Not on file Sexual Orientation Not on file Occupation Industry Job Start Date Job End Date [employer] Not on file Not on file Not on file documented as of this encounter Last Filed Vital Signs Vital Sign Reading Time Taken Comments Blood Pressure 126/70 12/02/2024 1:20 PM CDT Pulse 65 12/02/2024 1:20 PM CDT Temperature - - Respiratory Rate - - Oxygen Saturation 98% 12/02/2024 1:20 PM CDT Inhaled Oxygen Concentration - - Weight 114.3 kg (252 lb) 12/02/2024 1:20 PM CDT Height 157.5 cm (5' 2) 12/02/2024 1:20 PM CDT Body Mass Index 46.09 12/02/2024 1:20 PM CDT documented in this encounter Progress Notes * Mohit Ralph MD - 12/02/2024 1:30 PM CDT Images from the original note were not included. [facility] Group-Cardiology DATE OF VISIT: 12/02/2024 CHIEF COMPLAINT Chief Complaint Patient presents with Follow-up 6 mo follow up on HTN, CAD, PAF, HLD, RUPAL, edema HPI Maddison Sam is a 79 y.o. female with a history of atrial fibrillation, coronary disease. She is transferring care from [facility]. She has a history of atrial fibrillation and had formally been on amiodarone. She does not recall ever being on anticoagulation. In February 2022 she had a cardiac catheterization performed which found single-vessel 90% CAD involving the RCA. She was then transferred to [facility] [place] and she was discharged. The next month in March 2022 she had a roto ablation performed that unfortunately resulted in an aortic dissection as well as RCA dissection.She was emergently transferred to [place] and she has been seen and followed by Dr. Patel since that time. Patient had 100% occluded RCA. There was concern about type a aortic dissection. Toñito was performed and thought that the dissection had spontaneously heal so surgery was aborted. She had follow-up scans performed which again does not show any clear evidence of aortic dissection but still withthe RCA ???injury?? . She does have dyspnea with exertion that has been present for couple of years. Does not particularly worse. She short of breath by walking to and from the parking lot climbing aflight of stairs. She does have some mild lower extremity swelling which is not new. She denies anychest pain, syncope, presyncope, paroxysmal nocturnal dyspnea, orthopnea, palpitations. Average home blood pressure runs 130/66 Follow-up note 05/27 2024: Home blood pressures around 130/70. No shortness breath No chest pain, syncope, presyncope, paroxysmal nocturnal dyspnea, orthopnea, edema palpitations Follow-up note 12/02/2024: She denies any chest pain, shortness breath, syncope, presyncope, paroxysmal nocturnal dyspnea, orthopnea, edema or palpitations. MEDICAL HISTORY Past Medical History: Diagnosis Date Abnormal stress test Atrial fibrillation (HCC) Breast cancer (HCC) CAD (coronary artery disease) 03/10/2022 Heart disease Hyperlipidemia Hypertension Non-ST elevation myocardial infarction (NSTEMI) ([facility]) 04/02/2022 Acute NSTEMI due to RCA occlusion. Pt stable and asymptomatic. Continue aspirin, statin, beta mayelin and ACEi I ordered follow up troponin and EKG. Follow on telemetry. Sleep apnea 2016 pt aware to bring in on DOS Type 2 diabetes mellitus ([facility]) Social History Tobacco Use Smoking status: Never Passive exposure: Past Smokeless tobacco: Never Substance and Sexual Activity Drug use: Yes Types: Alcohol Comment: 1-2 on special occasions Sexual activity: Not Currently control/protection: None Alcohol Use: Alcohol Misuse (01/08/2024) AUDIT-C Frequency of Alcohol Consumption: Monthly or less Average Number of Drinks: 3 or 4 Frequency of Binge Drinking: Less than monthly Family History Problem Relation Age of Onset Stroke Mother Diabetes Mother Obesity Mother Ulcers Father No Known Problems Maternal Grandmother No Known Problems Maternal Grandfather No Known Problems Paternal Grandmother No Known Problems Paternal Grandfather MEDICATIONS Medication List Accurate as of December 02, 2024 1:43 PM. If you have any questions, ask your nurse or doctor. CONTINUE taking these medications aspirin 81 mg chewable tablet Take 1 tablet (81 mg total) by mouth daily blood-glucose meter kit 1 each daily carvediloL 6.25 mg tablet Commonly known as: COREG Take 1 tablet (6.25 mg total) by mouth 2 (two) times a day with meals ergocalciferol 50,000 unit capsule Commonly known as: VITAMIN D Take 1 capsule (50,000 Units total) by mouth once a week ezetimibe 10 mg tablet Commonly known as: ZETIA Take 1 tablet (10 mg total) by mouth daily Freestyle [employer] Test Strips strip Generic drug: blood glucose diagnostic USE TO TEST BLOOD SUGAR ONCE DAILY furosemide 20 mg tablet Commonly known as: LASIX TAKE 1 TABLET (20 MG TOTAL) BY MOUTH DAILY NEEDED (SWELLING). hydroCHLOROthiazide 25 mg tablet Commonly known as: HYDRODIURIL Take 1 tablet (25 mg total) by mouth every morning lancets misc 1 each by other route as directed lisinopriL 40 mg tablet Commonly known as: PRINIVIL,ZESTRIL Take 1 tablet (40 mg total) by mouth every morning magnesium oxide 400 mg magnesium tablet Take 400 mg by mouth 2 (two) times a day metFORMIN XR 500 mg 24 hr tablet Commonly known as: GLUCOPHAGE XR Take 2 tablets (1,000 mg total) by mouth daily with breakfast rosuvastatin 40 mg tablet Commonly known as: CRESTOR Take 1 tablet (40 mg total) by mouth nightly semaglutide 7 mg tablet Commonly known as: Rybelsus Take 1 tablet (7 mg total) by mouth daily before breakfast ALLERGIES Allergies Allergen Reactions Clindamycin Rash Penicillins Swelling and Rash Childhood allergy REVIEW OF SYSTEMS Review of Systems Constitutional: Negative for weight gain and weight loss. HENT: Negative for hearing loss. Eyes: Negative for blurred vision and visual disturbance. Cardiovascular: Positive for dyspnea on exertion and leg swelling. Negative for chest pain, claudication, irregular heartbeat, near-syncope, orthopnea, paroxysmal nocturnal dyspnea and syncope. Respiratory: Negative for cough, hemoptysis, shortness of breath, snoring, sputum production and wheezing. Endocrine: Negative for cold intolerance, heat intolerance and polyuria. Hematologic/Lymphatic: Does not bruise/bleed easily. Skin: Negative for color change and rash. Musculoskeletal: Negative for falls, joint pain, joint swelling and myalgias. Gastrointestinal: Negative for abdominal pain, heartburn, nausea and vomiting. Genitourinary: Negative for dysuria. Neurological: Negative for dizziness, focal weakness, headaches, light- headedness, numbness and weakness. Psychiatric/Behavioral: Negative for depression. The patient is not nervous/anxious. Allergic/Immunologic: Negative for environmental allergies. All other systems reviewed and are negative. PHYSICAL EXAM Blood pressure 126/70, pulse 65, height 157.5 cm (5' 2), weight 114.3 kg (252 lb), SpO2 98%. Body mass index is 46.09 kg/m??. Physical Exam Vitals reviewed. Constitutional: Appearance: Normal appearance. HENT: Head: Normocephalic and atraumatic. Nose: Nose normal. Eyes: General: No scleral icterus. Conjunctiva/sclera: Conjunctivae normal. Cardiovascular: Rate and Rhythm: Normal rate and regular rhythm. Pulses: Intact distal pulses. Heart sounds: Normal heart sounds. No murmur heard. No friction rub. No gallop. Pulmonary: Effort: Pulmonary effort is normal. No respiratory distress. Breath sounds: Normal breath sounds. No wheezing or rales. Chest: Chest wall: No tenderness. Abdominal: General: Bowel sounds are normal. There is no distension. Palpations: Abdomen is soft. Tenderness: There is no abdominal tenderness. Musculoskeletal: General: No swelling. Normal range of motion. Cervical back: Neck supple. Skin: General: Skin is warm and dry. Neurological: Mental Status: She is alert and oriented to person, place, and time. Psychiatric: Mood and Affect: Mood normal. LABS AND OTHER DIAGNOSTIC TESTS Lab Results Component Value Date WBC 8.4 08/02/2024 HGB 12.6 08/02/2024 HCT 37.5 08/02/2024 MCV 88.2 08/02/2024 Chemistry Component Value Date/Time SODIUM 138 08/02/2024 1450 SODIUM 135 01/16/2024 1144 POTASSIUM 4.0 08/02/2024 1450 POTASSIUM 4.3 01/16/2024 1144 CHLORIDE 99 08/02/2024 1450 CHLORIDE 100 01/16/2024 1144 CO2 25 08/02/2024 1450 CO2 26 01/16/2024 1144 BUNSER 18 08/02/2024 1450 BUNSER 21 01/16/2024 1144 CREATININE 0.80 08/02/2024 1450 CREATININE 0.96 01/16/2024 1144 GLUCOSE 120 08/02/2024 1450 GLUCOSE 120 (H) 01/16/2024 1144 Component Value Date/Time CALCIUM 9.6 08/02/2024 1450 CALCIUM 9.8 01/16/2024 1144 ALKPHOS 85 08/02/2024 1450 ALKPHOS 57 01/16/2024 1144 AST 19 08/02/2024 1450 AST 15 01/16/2024 1144 ALT 14 08/02/2024 1450 ALT 12 01/16/2024 1144 BILITOT 0.3 08/02/2024 1450 BILITOT 0.6 01/16/2024 1144 Lab Results Component Value Date CHOL 90 08/15/2024 CHOL 87 01/16/2024 CHOL 98 03/31/2022 Lab Results Component Value Date HDL 38 (L) 08/15/2024 HDL 39 (L) 01/16/2024 HDL 41 03/31/2022 LDL Date Value Ref Range Status 01/16/2024 25 mg/dL (calc) Final Comment: Reference range: <100 Desirable range <100 mg/dL for primary prevention; <70 mg/dL for patients with CHD or diabetic patients with > or = 2 CHD risk factors. LDL-C is now calculated using the Susu calculation, which is a validated novel method providing better accuracy than the Friedewald equation in the estimation of LDL-C. Richard SHELTON et al. RACQUEL. 2013;310(19): 4851-3686 (http://education.[employer]/faq/ATJ998) ] Lab Results Component Value Date LDLCALC 26 08/15/2024 Lab Results Component Value Date TRIG 154 (H) 08/15/2024 TRIG 151 (H) 01/16/2024 TRIG 156 (H) 03/31/2022 Lab Results Component Value Date CHOLHDL 2 08/15/2024 CHOLHDL 2.2 01/16/2024 CHOLHDL 2 03/31/2022 EKG 07/17/2023: Normal sinus rhythm, mild nonspecific T-wave abnormality. Borderline ECG Echo 04/01/2022 Normal LV and RV size and systolic function and hypok. of inferior and inferolateral avila. No significant valvular abnormalities noted. LA is normal. Normal Inferior vena cava. Normal aorta. CTA Cors 04/12 1. Markedly limited examination due to quantum mottling and motion artifact. No significant interval change in injury of the proximal right coronary artery compared to CT dated 04/01/2022. No definite evidence of aortic injury identified. No periaortic hematoma or hemopericardium. 2. Severe multivessel calcified and noncalcified coronary artery disease, which is incompletely evaluated. Echo 01/05/2024 Normal left ventricular systolic function. No focal wall motion abnormalities. Normal left ventricular size. Mild concentric left ventricular hypertrophy. Impaired diastolic relaxation Grade I. Ejection fraction is visually estimated at 60-65 %. Ejection fraction is measured at 65 %. There is mild enlargement of left atrium. Mild mitral annular calcification. Mild mitral valve regurgitation. Normal sinus rhythm. CTA cors 04/2024 2. Diffuse triple vessel coronary artery calcification causing up to severe stenosis of the right coronary artery. There is up to moderate stenosis of the left anterior descending artery and up to moderate stenosis of the left circumflex artery. ASSESSMENT Diagnoses and all orders for this visit: Primary hypertension (Primary) At goal Coronary artery disease involving [place] coronary artery of [place] heart without angina pectoris Asymptomatic Paroxysmal atrial fibrillation (CMS/HCC) ([facility]) Chads Vasc score of 6. In sinus rhythm at this point. Formally on amiodarone. Uncertain as to why she is not on anticoagulation. Continue aspirin for now until this is clarified Dissection of ascending aorta ([facility]) Followed at [place] by Dr. Patel Mixed hyperlipidemia At goal and on statin and ezetimibe Class 3 severe obesity due to excess calories with serious comorbidity and body mass index (BMI) of45.0 to 49.9 in adult ([facility]) Improved Sleep apnea, obstructive Compliant Bilateral lower extremity edema Resolved PLAN/RECOMMENDATIONS Continue lisinopril, hydrochlorothiazide and carvedilol for hypertension. Continue p.r.n. furosemide for swelling Continue rosuvastatin and ezetimibe for hyperlipidemia and coronary disease. She is doing well overall. She is congratulated on her weight loss. Follow-up in 6 months or sooner as clinically indicated Mohit Ralph MD, [facility] documented in this encounter Plan of Treatment Not on file documented as of this encounter Visit Diagnoses Diagnosis Coronary artery disease involving [place] coronary artery of [place] heart without angina pectoris- Primary Primary hypertension Unspecified essential hypertension Hyperlipidemia, unspecified hyperlipidemia type Paroxysmal atrial fibrillation (HCC) Atrial fibrillation Sleep apnea, obstructive Obstructive sleep apnea (adult) (pediatric) documented in this encounter Care Teams Ladle Patcher Relationship Specialty Start Date End Date Sydnee Sorensen NP [address] [facility] [address] [place] [address] PCP - General Family Medicine 08/02/24 [place] [address] [address] Consulting Physician Cardiology 09/03/22 Giana Torres MD [address] [place] [address] [address] [place] [address] Referring Physician Cardiology 01/08/24 Mohit Ralph MD [address] [facility] [address], [address] [address] Consulting Physician Cardiology 01/08/24 Muriel Jimenez NP [address] [facility] [address], [address] [address] Nurse Practitioner 01/08/24 Brock Peraza DO [address] [facility], [address] [place] [address] Medical Oncologist/Expressive Music Therapist Hematology and Oncology 08/02/24 Renae Brady PA [address] [facility] [address] [place] [address] Physician Mule Driver 08/15/24 documented as of this encounter
--- OUTSIDE RECORDS SUMMARY | 2024-12-03 10:54 | XMS_ITS | Clinical Summary ---
Author Organization [facility] Address [address] [place] [address] Care Team Providers Care Marketing Operations Intern Name Role Phone Robby Dia MD Unavailable Giana Torres MD Unavailable [phone] Mohit Ralph MD Unavailable Muriel Jimenez NP Unavailable [phone] Brock Peraza DO Unavailable Sydnee Sorensen NP Primary Care Provider [phone] Renae Brady Unavailable Allergies Active Allergy Reactions Criticality Noted Date [...] in situ (DCIS) of left breast,Vitamin D deficiency,correction (current) use of aromatase inhibitors Take 1 capsule (50,000 Units total) by mouth once a week 12 capsule 5 025 Active semaglutide (Rybelsus) 3 mg tablet TAKE 1 TABLET (3 MG TOTAL) BY MOUTH CUSTOMER SUPPORT EXECUTIVE BEFORE BREAKFAST 100 tablet 1 5 025 Discontin ued(Alter deann therapy) Active Problems Problem Noted Date Diagnosed Date Bilateral lower extremity edema 05/27/2024 OAB (overactive bladder) 07/09/2023 Assessment & Plan (07/09/2023 5:10 PM EXHIBITION CARVER): Chronic issue. Has more issues with nocturia [...] 01/07/2023 Assessment & Plan (08/15/2024 12:26 PM EXHIBITION CARVER): Last vit D 28. Continue supplementation Assessment & Plan (01/08/2024 3:21 PM CDT): Chronic. Check and replete as needed Carpal tunnel syndrome, bilateral 01/07/2023 Assessment & Plan (01/08/2024 3:28 PM CDT): Chronic. Mild nighttime symptoms. Consider use of wrist splints Assessment & Plan (07/09/2023 5:08 PM EXHIBITION CARVER): Encouraged use of wrist splints with repetitive activity at night. No signs of thenar atrophy. Offered EMG nerve conduction studies to confirm diagnosis but patient defers. She will continue to monitor hand symptoms Class 3 severe obesity due t o excess calories with serious comorbidity and body mass index (BMI) of 45.0 to 49.9 in adult 09/03/2022 Assessment & Plan (08/15/2024 12:22 PM EXHIBITION CARVER): BMI Follow-up includes: nutrition counseling and exercise counseling. Assessment & Plan (01/08/2024 3:21 PM CDT): Chronic. Suboptimally controlled and needs improvement. Counseled patient on regular exercise. Consider chair aerobics and low-impact activities. She was encouraged to work on diet and weight loss. Monitor Assessment & Plan (07/09/2023 5:08 PM EXHIBITION CARVER): Chronic. Suboptimally controlled. Needs significant improvement. Counseled [...] concerns). Assessment & Plan (08/15/2024 1:33 PM EXHIBITION CARVER): Due for repeat scan in May 2025. Managed by cardiothoracic surgery, Dr. Patel. Currently on carvedilol, lisinopril Assessment & Plan (01/08/2024 3:28 PM CDT): Remote history of dissection of the aorta.. Treated nonoperatively and has resolved. She follows with Cardiothoracic specialists yearly Assessment & Plan (07/08/2023 6:37 PM EXHIBITION CARVER): Chronic. Follows with cardiology/cardiothoracic surgery. Has CT angiogram completed a couple of months ago which shows that it was stable. They are just monitoring in recommending management of blood pressure. She will see him back in 1 year CAD (coronary artery disease) 03/10/2022 Overview (03/10/2022): Added automatically from request for surgery [id number] Assessment & Plan (08/15/2024 12:31 PM EXHIBITION CARVER): Continue crestor and zetia, aspirin, Managed by [...] Monitor Assessment & Plan (07/09/2023 5:06 PM EXHIBITION CARVER): Chronic. Denies chest pain. Continue risk factor modification. On ASA, high- intensity statin in, Zetia. Continue care per cardiology work on blood pressure control History of breast cancer 04/26/2019 Malignant neoplasm of upper- inner quadrant of left breast in female, estrogen receptor positive 04/22/2019 Assessment & Plan (08/15/2024 1:36 PM EXHIBITION CARVER): History of. Managed by oncology . Sees oncology 3/4- 5 years post treatment. Finished anastrozole tx. Assessment & Plan (01/08/2024 3:21 PM CDT): Chronic. Continue routine monitoring with Oncology. Continue Arimidex. No signs of recurrence Assessment & Plan (07/08/2023 6:37 PM EXHIBITION CARVER): Chronic. Follows with Oncology. Remains on Arimidex. Doing well Osteopenia 12/20/2018 Assessment & Plan (08/15/2024 12:34 PM EXHIBITION CARVER): Continue vit D supplementation. BMD ordered Assessment & Plan (01/08/2024 3:21 PM CDT): Reported remote diagnosis. She is past due for updated bone density. Ordered Atrial fibrillation 12/03/2018 Assessment & Plan (08/15/2024 12:31 PM EXHIBITION CARVER): Sees cardio 12/02 Cardio is requesting records from [facility] to hopefully help explain why she is not on anticoagulant given her CHADS-VASc score of 6 and history of atrial fibrillation. Due to mild bilateral lower extremity edema continue furosemide 20 mg daily p.r.n. edema Continue aspirin. Assessment & Plan (01/08/2024 3:19 PM CDT): Chronic. Controlled. Patient recently changed candlemaker from [facility] to [facility] Cardiology. Cardiology at [facility] vascular previously deferred NOAC but for unknown reason. She remains on aspirin. I see no contraindication from my standpoint to considering NOAC if her new candlemaker feels it would be recommended. However, if patient does start having issues with increasing falls then we may need to stay with an aspirin. She has slight increased fall risk based on her STEADI score Assessment & Plan (07/09/2023 5:06 PM EXHIBITION CARVER): Continue medication care per Cardiology. Denies any recent palpitations. Remains on ASA. Not currently on NOAC Hyperlipidemia 02/13/2017 Assessment & Plan (08/15/2024 12:21 PM EXHIBITION CARVER): Last LDL 26. Continue crestor, zetia Assessment & Plan (01/08/2024 3:20 PM CDT): Chronic. Tolerates combination of rosuvastatin and ezetimibe. Check cholesterol level and adjust medications if needed Assessment & Plan (07/09/2023 5:06 PM EXHIBITION CARVER): Chronic. On rosuvastatin and Zetia. LDL goal less than 70 Chronic. On ezetimibe and rosuvastatin 40 mg daily. Target LDL goal less than 70. Hypertension 02/13/2017 Assessment & Plan (08/15/2024 1:30 PM EXHIBITION CARVER): BP stable today. Continue lisinopril, HCTZ, lasix, carvedilol. Has white coat hypertension. This morning's BP was good at home 127/71. Asked her to send us home blood pressures via [employer]. Assessment & Plan (01/08/2024 3:20 PM CDT): Chronic. Elevated in office but has been okay on home readings. She does have a degree of white coat hypertension. We will need to monitor blood pressure closely. Continue lisinopril as well as carvedilol Assessment & Plan (07/09/2023 5:07 PM EXHIBITION CARVER): Chronic. Mildly elevated in office today but reports most home readings are under 140. Has ambulatory blood pressure monitoring cuff that since her readings to her candlemaker for adjustment. I did encourage that she may want to bring her cuff to 1 of her visits so it can be calibrated to make sure it is still accurate Sleep apnea, obstructive 02/13/2017 Assessment & Plan (08/15/2024 1:34 PM EXHIBITION CARVER): Chronic. Wears cpap. Managed by sleep management. -at [facility] Assessment & Plan (01/08/2024 3:20 PM CDT): Chronic. Continue CPAP. Patient would like to see a new sleep medicine doctor for further evaluation. Referral provided Assessment & Plan (07/08/2023 6:37 PM EXHIBITION CARVER): Chronic. Follows with sleep Medicine. Continue care per specialist Type 2 diabetes mellitus without complications 0 02/13/2017 Assessment & Plan (08/15/2024 12:21 PM EXHIBITION CARVER): Labs ordered to recheck. Last A1c 7.0. continue metformin Assessment & Plan (01/08/2024 3:20 PM CDT): Chronic. Controlled. Check and adjust medication if needed. Continue metformin. Could consider addition of SGLT2 or GLP 1 medication for added health benefits if needed Assessment & Plan (07/09/2023 5:07 PM EXHIBITION CARVER): Chronic. Diabetes is controlled on A1c. Continue [...] 07/09/202312/20 Assessment & Plan (07/09/2023 5:09 PM EXHIBITION CARVER): Patient notes at times she feels slightly dizzy or unstable. She has difficulty characterizing. She denies sensation of near-syncope. She additionally denies vertiginous symptoms. She is unable to really describe what she feels. We will monitor for now. Advised if it worsens or she develops more significant symptoms to let me know. 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 Pt stable and asymptomatic. Continue aspirin, statin, beta mayelin and ACEi I ordered follow up troponin and EKG. Follow on telemetry. Dissection of aorta 03/31/2022 09/04/19 Assessment & Plan (03/31/2022 1:33 PM CDT): 76y/o female with HTN, HLD, DM, recently diagnosed significant RCA disease who initially admitted to [facility] today for a LHC/RCA PCI as with recent angina symptoms. On first injection of the cath procedure, an ascending aortic dissection was caused. She was transferred to [facility] for emergent surgical intervention. Labs normal Last dose of plavix on 03/30 Type and cross 6u pRBCs/plts/FFP Planning for emergent type A dissection repair and 1V CABG to RCA with VG conduit. Dr. Patel explained the surgery in extent and consents obtained. Coronary artery disease, occlusive 03/31/2022 09/03/2022 Abnormal mammogram of left breast 03/25/2019 09/03/2022 Encounters Date Type Department Care Team Description 12/02/2024 1:30 PM CDT Office Visit [facility] at [address] [place] [address] Mohit Ralph MD Coronary artery disease involving menominee coronary artery of menominee heart without angina pectoris (Primary Dx); Primary hypertension; Hyperlipidemia, unspecified hyperlipidemia type; Paroxysmal atrial fibrillation (HCC); Sleep apnea, obstructive 11/16/2024 Telephone [facility] Primary Care at [address] [address] Sydnee Sorensen NP Medical Question/Miscellaneous 09/20/[address] [facility] Primary Care at [address] [address] Sydnee Sorensen NP 09/06/2024 11:00 AM CDT Therapy [facility] OP Physical Therapy [address] [address] Numbness and tingling in both hands from Last 3 Months Immunizations Immunization Administration Dates Next Due Influenza, [...] PPV23 07/05/2014 Tdap 01/14/2024,03/09/2012 ZOSTER Recombinant 01/14/2024 Surgical History Surgery Date Site/Laterality Comments HYSTERECTOMY CHOLECYSTECTOMY HERNIA REPAIR 06/22/2013 - 06/21/2014 BREAST BIOPSY 03/25/2019 Left TONSILLECTOMY as a child COLONOSCOPY 06/22/2018 - 06/21/2019 ANGIOPLASTY 02/20/22, 03/31/22 Medical History Medical History Date Comments Hypertension Type 2 diabetes mellitus (HCC) Sleep apnea 2017 pt aware to ned an in on DOS Breast cancer (HCC) Hyperlipidemia Atrial fibrillation (HCC) CAD (coronary artery disease) 03/10/2022 Abnormal stress test Non-ST elevation myocardial infarction (NSTEMI) (HCC) 04/02/2022 Acute NSTEMI due to RCA occl usion. Pt stable and asymptomatic. Continue aspirin, statin, beta mayelin and ACEi I ordered follow up troponin and EKG. Follow on telemetry. Heart disease Family History Medical History Relation Name Comments Ulcers Father No Known Problems Maternal Grandfather No Known Problems Maternal Grandmother Diabetes Mother Sammie [place] Obesity Mother Sammie [place] Stroke Mother Sammie [place] No Known Problems Paternal Grandfather No Known Problems Paternal Grandmother Relation Name Status Comments Father Maternal Grandfather Maternal Grandmother Mother Sammie [place] Paternal Grandfather Paternal Grandmother Social History Tobacco Use Types Packs/Day Years [...] often do you attend chur ch or religion services? Never 02/21/2022 Do you belong to any clubs o r organizations such as methodist groups, unions, fraternal or athletic groups, or [...] place to sleep or slept in a snf (including now)? 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 Not on file Not on file Obstetrics History Last Filed Vital Signs Vital Sign Reading Time Taken Comments Blood Pressure 126/70 12/02/2024 1:20 PM CDT Pulse 65 12/02/2024 1:20 PM CDT Temperature 36.6 C (97.8 F) 08/15/2024 1:02 PM EXHIBITION CARVER Respiratory Rate 18 08/15/2024 1:02 PM EXHIBITION CARVER Oxygen Saturation 98% 12/02/2024 1:20 PM CDT Inhaled Oxygen Concentration - - Weight 114.3 kg (252 lb) 12/02/2024 1:20 PM CDT Height 157.5 cm (5' 2) 12/02/2024 1:20 PM CDT Body Mass Index 46.09 12/02/2024 1:20 PM CDT Plan of Treatment Health Maintenance Due Date Last Done Comments Osteoporosis Screening-Bone Density Scan 1945 Dilated Eye Exam 1945 Zoster Vaccine (2 of 2) 03/10/2024 01/14/2024 Covid-19 Vaccine ( - 2023-2 5 season) 2024 05/10/2024, 04/30/2022, 04/09/2021, Additional history exists Depression Screening 01/07/2025 01/08/2024, 09/04/19 23 Fall Risk Assessment 01/07/2025 01/08/2024, 09/03/2022, 04/06/2022 Foot Exam 01/07/2025 01/08/2024, 12/20, 01/07/2023 Well Visit 65+ 01/07/2025 01/08/2024, 04/14/2022 Hemoglobin A1C 02/12/2025 08/15/2024, 12/21, 07/09/2023, Additional history exists eGFR 08/02/2025 08/02/2024, 12/21, 08/04/2023, Additional history exists Albumin Creatinine Ratio, Urine 08/15/2025 08/15/2024, 01/16/2024, 01/07/2023 Lipid Panel 08/15/2025 08/15/2024, 12/21, 08/02/2022, Additional history exists Breast Cancer Screening-Mammogram 08/23/2025 08/23/2024, 08/18/2023, 07/04/2022, Additional history exists DTaP/Tdap/Td Vaccine (3 - Td or Tdap) 01/13/2034 01/14/2024, 03/09/2012 Pneumococcal vaccine 65+ Completed 12/20/2018, 06/22 Hepatitis C Screening Completed 09/03/2022 Influenza Vaccine Completed 05/10/2024, , 04/06/2022, Additional history exists Hepatitis B Screening Completed 08/15/2024 Procedures Procedure Name Priority Date/Time Associated Diagnosis Comments SCREENING MAMMOGRAM BILATERAL W OBI Schedule Routine, Read Routine (OP Routine) 08/23/2024 11:09 AM EXHIBITION CARVER Malignant neoplasm of upper-inner quadrant of left breast in female, estrogen receptor positive (HCC) Encounter for screening mammogram for malignant neoplasm of breast HEMOGLOBIN A1C Routine 08/15/2024 2:01 PM EXHIBITION CARVER Type 2 diabetes mellitus without complication, without long-term current use of insulin (HCC) LIPID PANEL Routine 08/15/2024 2:01 PM EXHIBITION CARVER Hyperlipidemia associated with type 2 diabetes mellitus (HCC) ALBUMIN CREATININE RATIO, URINE Routine 08/15/2024 2:01 PM EXHIBITION CARVER Type 2 diabetes mellitus without complication, without long-term current use of insulin (HCC) EGFR Routine 08/02/2024 2:50 PM EXHIBITION CARVER Malignant neoplasm of upper-inner quadrant of left breast in female, estrogen receptor positive (HCC) Ductal carcinoma in situ (DCIS) of left breast HEPATITIS C ANTIBODY Routine 09/03/2022 3:52 PM CDT Encounter for hepatitis C screening test for low risk patient from Last 3 Months or Most Recently Relevant to Health Maintenance Results * Screening Mammogram Bilateral W Obi (08/23/2024 11:09 AM EXHIBITION CARVER) Anatomical Region Laterality Modality Breast Bilateral Mammography Narrative 08/24/2024 9:11 AM EXHIBITION CARVER Mammogram Technique: Bilateral Digital Breast Tomosynthesis, Bilateral C-view 2D Screening mammogram. Views obtained: bilateral craniocaudal and bilateral mediolateral oblique. Computer Aided Detection was performed. Mammogram Findings: The present examination has been compared to prior imaging studies performed at [facility] on 06/28/2021, 07/04/2022 and 08/18/2023. The [...] compared to prior imaging studies performed at [facility] on 06/28/2021, 07/04/2022 and 08/18/2023. The [...] Albumin Creatinine Ratio, Urine (08/15/2024 2:01 PM EXHIBITION CARVER) Albumin Ur 17.5 mg/L Comment: Interpretive Data No reference range established. Current interpretive data was last revised 2018. Creatinine Ur 63.2 mg/dL KIMANI Comment: Interpretive Data No reference range established. Current interpretive data was last revised 2018. Albumin Creatinine Ratio, Ur 28 1 - 29 mg/g KIMANI Urine 08/15/2024 2:01 PM EXHIBITION CARVER 08/15/2024 10:06 PM EXHIBITION CARVER Sydnee Sorensen NP LAB URINE ORDERABLES Final Re sult Performing Organization Address [facility] de Phone Number KIMANI MELTON [address] [address] [facility] [place] [address] * (ABNORMAL) Hemoglobin A1c (08/15/2024 2:01 PM EXHIBITION CARVER) Hgb A1C 7.2(H) 4.0 - 5.6 % Estimated Average Glucose 160 mg/dL KIMANI MELTON Comment: The ADA recommends reporting an estimated Average Glucose (eAG) with all Hemoglobin A1c results using the equation derived from a study of 507 normal and diabetic adults. Minority populations were underrepresented and children were not included. (Diabetes Care 31:7333-2105, 2008). The eAG is not equivalent to a fasting glucose. Blood 08/15/2024 2:01 PM EXHIBITION CARVER 08/15/2024 10:06 PM EXHIBITION CARVER Sydnee Sorensen NP LAB BLOOD ORDERABLES Final Re sult Performing Organization Address [facility] de Phone Number KIMANI MELTON [address] [address] [facility] [place] [employer] [address] * (ABNORMAL) Lipid panel (08/15/2024 2:01 PM EXHIBITION CARVER) Cholesterol 90 30 - 199 mg/dL Comment: [...] on 2018. HDL 38(L) >=40 mg/dL KIMANI MELTON Comment: Interpretive Data Ages [...] NCEP Expert Panel. Circulation 2004;110:227 3. German Lau al. RACQUEL Cardiol. 2020 October 20;5(5):540-548. doi: 10.1001/jamacardio.2020.0013 Current Interpretive Data was [...] revised on 2018. Chol/HDL ratio 2 KIMANI Blood 08/15/2024 2:01 PM EXHIBITION CARVER 08/15/2024 10:06 PM EXHIBITION CARVER us Sydnee Sorensen NP LAB BLOOD ORDERABLES Final Re sult KIMANI [address] [address] Department [place] [address] * eGFR (08/02/2024 2:50 PM EXHIBITION CARVER) eGFR 75 >=60 mL/min/1. 73 m2 Comment: [...] was last reviewed 2021. Testing performed by: [facility], [address] [place] [address]., [id number] Blood 08/02/2024 2:50 PM EXHIBITION CARVER 08/02/2024 2:53 PM EXHIBITION CARVER Kimberli Vasquez NP LAB BLOOD ORDERABLES Final Result Performing Organization Address [facility] Co de Phone Number KIMANI [address] [facility] Department [place] [address] * Hepatitis C antibody (09/03/2022 3:52 PM CDT) Hep C Ab Nonreactive Nonreactive KIMANI Comment: [...] ERAL ORDERABLES Final Result Performing Organization Address [facility] Co de Phone Number KIMANI [address] [address] Department [place] [address] from Last 3 Months or Most Recently Relevant to Health Maintenance Insurance MEDICARE [facility] MEDICARE SUPPLEMENT MEDICARE [facility] MEDICARE SUPPLEMENT MEDICARE Advance Directives For more information, please contact: [phone] * Full Code (Latest Code Status on File) Date Activated Date Inactivated Comments 03/31/2022 2:48 PM 04/06/2022 6:57 PM Care Teams Marketing Operations Intern Relationship Specialty Start Date End Date Sydnee Sorensen NP [address] [facility] [address] [place] [address] PCP - General Family Medicine 08/02/24 [place] [address] [address] Consulting Physician Cardiology 09/03/22 Giana Torres MD [address] [place] [address] Referring Physician Cardiology 01/08/24 Mohit Ralph MD [address] [facility] [address] [facility], [address] [address] Consulting Physician Cardiology 01/08/24 Muriel Jimenez NP [address] [facility] [facility] [address] [place] [address] [place] [address] Nurse Practitioner 01/08/24 Brock Peraza DO [address] [place] [address] MEDICAL ONCOLOGY, [address] [address] Medical Oncologist/Telemarketer Supervisor Hematology and Oncology 08/02/24 Renae Brady PA [address] [place] [phone] Physician Patient Account Representative 08/15/24
--- OUTSIDE RECORDS SUMMARY | 2024-12-03 10:54 | XMS_ITS | Encounter Summary ---
Author Organization [facility] Healthcare Address [address] [place] [address] Care Team Providers Care Tugboat Captain Name Role Phone Robby Dia MD Unavailable Giana Torres MD Unavailable [phone] Mohit Ralph MD Unavailable Muriel Jimenez NP Unavailable Brock Peraza DO Unavailable [phone] Sydnee Soernsen NP Primary Care Provider Renae Brady Unavailable Reason for Visit * Reason Onset Date Comments Medical Question/Miscellaneous 11/16/2024 Encounter Details Date Type Department Care Team (Late st Contact Info) Description 11/16/2024 Telephone [facility] Medical Group Primary Care at [address] [address] Sydnee Sorensen NP [address] [place] [address] [address] [place] [address] Medical Question/Miscellaneous Social History Tobacco Use Types Packs/Day Years [...] often do you attend chur ch or christian services? Never 02/21/2022 Do you belong to any clubs o r organizations such as mormon groups, unions, fraternal or athletic groups, or [...] place to sleep or slept in a skilled nursing (including now)? 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 She is scheduled January 04 for it, wanted to let provider know. Does message need to be routed? Yes-FYI Only documented in this encounter Plan of Treatment Not on file documented as of this encounter Visit Diagnoses Not on filedocumented in this encounter Care Teams Tugboat Captain Relationship Specialty Start Date End Date Sydnee Sorensen NP [address] [facility] [address] [place] [address] PCP - General Family Medicine 08/02/24 [place] [address] [address] [facility] [address] [place] [address] Consulting Physician Cardiology 09/03/22 Giana Torres MD [address] [place] [address] [address] [place] [address] Referring Physician Cardiology 01/08/24 Mohit Ralph MD [address] [facility] [address], [facility] [address] [place] [address] Consulting Physician Cardiology 01/08/24 Muriel Jimenez NP [address] [facility] [address], [facility] [address] [place] [address] Nurse Practitioner 01/08/24 Brock Peraza DO [address] [place] [address] MEDICAL ONCOLOGY, [place] [id number] Medical Oncologist/Senior Datastage Developer Hematology and Oncology 08/02/24 Renae Brady PA [address] [address] Physician Clamp Remover 08/15/24 documented as of this encounter
--- OUTSIDE RECORDS SUMMARY | 2024-12-03 10:54 | XMS_ITS ---
Author Organization [facility] Address [address] [place] [address] Care Team Providers Care Nursing Information Systems Coordinator Name Role Phone Robby Dia MD Unavailable [phone] Giana Torres MD Unavailable [phone] Mohit Ralph MD Unavailable Muriel Jimenez NP Unavailable Brock Peraza DO Unavailable [phone] Sydnee Sorensen NP Primary Care Provider [phone] Renae Brady Unavailable Active Problems Problem Noted Date Diagnosed Date Bilateral lower extremity edema 05/27/2024 OAB (overactive bladder) 07/09/2023 Assessment & Plan (07/09/2023 5:10 PM HOSPITAL LIBRARIAN): Chronic issue. Has more issues with nocturia [...] 01/07/2023 Assessment & Plan (08/15/2024 12:26 PM HOSPITAL LIBRARIAN): Last vit D 28. Continue supplementation Assessment & Plan (01/08/2024 3:21 PM CDT): Chronic. Check and replete as needed Carpal tunnel syndrome, bilateral 01/07/2023 Assessment & Plan (01/08/2024 3:28 PM CDT): Chronic. Mild nighttime symptoms. Consider use of wrist splints Assessment & Plan (07/09/2023 5:08 PM HOSPITAL LIBRARIAN): Encouraged use of wrist splints with repetitive activity at night. No signs of thenar atrophy. Offered EMG nerve conduction studies to confirm diagnosis but patient defers. She will continue to monitor hand symptoms Class 3 severe obesity due t o excess calories with serious comorbidity and body mass index (BMI) of 45.0 to 49.9 in adult 09/03/2022 Assessment & Plan (08/15/2024 12:22 PM HOSPITAL LIBRARIAN): BMI Follow-up includes: nutrition counseling and exercise counseling. Assessment & Plan (01/08/2024 3:21 PM CDT): Chronic. Suboptimally controlled and needs improvement. Counseled patient on regular exercise. Consider chair aerobics and low-impact activities. She was encouraged to work on diet and weight loss. Monitor Assessment & Plan (07/09/2023 5:08 PM HOSPITAL LIBRARIAN): Chronic. Suboptimally controlled. Needs significant improvement. Counseled [...] concerns). Assessment & Plan (08/15/2024 1:33 PM HOSPITAL LIBRARIAN): Due for repeat scan in May 2025. Managed by cardiothoracic surgery, Dr. Patel. Currently on carvedilol, lisinopril Assessment & Plan (01/08/2024 3:28 PM CDT): Remote history of dissection of the aorta.. Treated nonoperatively and has resolved. She follows with Cardiothoracic specialists yearly Assessment & Plan (07/08/2023 6:37 PM HOSPITAL LIBRARIAN): Chronic. Follows with cardiology/cardiothoracic surgery. Has CT angiogram completed a couple of months ago which shows that it was stable. They are just monitoring in recommending management of blood pressure. She will see him back in 1 year CAD (coronary artery disease) 03/10/2022 Overview (03/10/2022): Added automatically from request for surgery [id number] Assessment & Plan (08/15/2024 12:31 PM HOSPITAL LIBRARIAN): Continue crestor and zetia, aspirin, Managed by [...] Monitor Assessment & Plan (07/09/2023 5:06 PM HOSPITAL LIBRARIAN): Chronic. Denies chest pain. Continue risk factor modification. On ASA, high- intensity statin in, Zetia. Continue care per cardiology work on blood pressure control History of breast cancer 04/26/2019 Malignant neoplasm of upper- inner quadrant of left breast in female, estrogen receptor positive 04/22/2019 Assessment & Plan (08/15/2024 1:36 PM HOSPITAL LIBRARIAN): History of. Managed by oncology . Sees oncology 3/4- 5 years post treatment. Finished anastrozole tx. Assessment & Plan (01/08/2024 3:21 PM CDT): Chronic. Continue routine monitoring with Oncology. Continue Arimidex. No signs of recurrence Assessment & Plan (07/08/2023 6:37 PM HOSPITAL LIBRARIAN): Chronic. Follows with Oncology. Remains on Arimidex. Doing well Osteopenia 12/20/2018 Assessment & Plan (08/15/2024 12:34 PM HOSPITAL LIBRARIAN): Continue vit D supplementation. BMD ordered Assessment & Plan (01/08/2024 3:21 PM CDT): Reported remote diagnosis. She is past due for updated bone density. Ordered Atrial fibrillation 12/03/2018 Assessment & Plan (08/15/2024 12:31 PM HOSPITAL LIBRARIAN): Sees cardio 12/02 Cardio is requesting records from [facility] to hopefully help explain why she is not on anticoagulant given her CHADS-VASc score of 6 and history of atrial fibrillation. Due to mild bilateral lower extremity edema continue furosemide 20 mg daily p.r.n. edema Continue aspirin. Assessment & Plan (01/08/2024 3:19 PM CDT): Chronic. Controlled. Patient recently changed chemist physical from [facility] to [facility]. Cardiology at [facility] vascular previously deferred NOAC but for unknown reason. She remains on aspirin. I see no contraindication from my standpoint to considering NOAC if her new chemist physical feels it would be recommended. However, if patient does start having issues with increasing falls then we may need to stay with an aspirin. She has slight increased fall risk based on her STEADI score Assessment & Plan (07/09/2023 5:06 PM HOSPITAL LIBRARIAN): Continue medication care per Cardiology. Denies any recent palpitations. Remains on ASA. Not currently on NOAC Hyperlipidemia 02/13/2017 Assessment & Plan (08/15/2024 12:21 PM HOSPITAL LIBRARIAN): Last LDL 26. Continue crestor, zetia Assessment & Plan (01/08/2024 3:20 PM CDT): Chronic. Tolerates combination of rosuvastatin and ezetimibe. Check cholesterol level and adjust medications if needed Assessment & Plan (07/09/2023 5:06 PM HOSPITAL LIBRARIAN): Chronic. On rosuvastatin and Zetia. LDL goal less than 70 Chronic. On ezetimibe and rosuvastatin 40 mg daily. Target LDL goal less than 70. Hypertension 02/13/2017 Assessment & Plan (08/15/2024 1:30 PM HOSPITAL LIBRARIAN): BP stable today. Continue lisinopril, HCTZ, lasix, carvedilol. Has white coat hypertension. This morning's BP was good at home 127/71. Asked her to send us home blood pressures via [employer]. Assessment & Plan (01/08/2024 3:20 PM CDT): Chronic. Elevated in office but has been okay on home readings. She does have a degree of white coat hypertension. We will need to monitor blood pressure closely. Continue lisinopril as well as carvedilol Assessment & Plan (07/09/2023 5:07 PM HOSPITAL LIBRARIAN): Chronic. Mildly elevated in office today but reports most home readings are under 140. Has ambulatory blood pressure monitoring cuff that since her readings to her chemist physical for adjustment. I did encourage that she may want to bring her cuff to 1 of her visits so it can be calibrated to make sure it is still accurate Sleep apnea, obstructive 02/13/2017 Assessment & Plan (08/15/2024 1:34 PM HOSPITAL LIBRARIAN): Chronic. Wears cpap. Managed by sleep management. -at [facility] Assessment & Plan (01/08/2024 3:20 PM CDT): Chronic. Continue CPAP. Patient would like to see a new sleep medicine doctor for further evaluation. Referral provided Assessment & Plan (07/08/2023 6:37 PM HOSPITAL LIBRARIAN): Chronic. Follows with sleep Medicine. Continue care per specialist Type 2 diabetes mellitus without complications 0 02/13/2017 Assessment & Plan (08/15/2024 12:21 PM HOSPITAL LIBRARIAN): Labs ordered to recheck. Last A1c 7.0. continue metformin Assessment & Plan (01/08/2024 3:20 PM CDT): Chronic. Controlled. Check and adjust medication if needed. Continue metformin. Could consider addition of SGLT2 or GLP 1 medication for added health benefits if needed Assessment & Plan (07/09/2023 5:07 PM HOSPITAL LIBRARIAN): Chronic. Diabetes is controlled on A1c. Continue metformin. Encouraged her to work on healthy diabetic diet, regular exercise and weight loss. Reiterated the importance of yearly diabetic eye exam for screening for retinopathy and looking for glaucoma. Patient denies any neuropathic symptoms in her feet but does have some symptoms in her hands. Hand symptoms are more characteristic of carpal tunnel syndrome Current Treatment and Therapy Plans No current plan information found. Past Treatment and Therapy Plans No past plan information found. Radiation Treatments * Course C1 L BREAST 2019 05/23/2019 - 06/17/2019 Treatment Period Energy Fraction Dose Fractions Total Dose Plans Planned LT BRST_FiF 05/26/2019 - 06/17/2019 267 15 / 4,005 Reference Points Delivered WILSON DPV 05/26/2019 - 06/17/2019 4,005 Lifetime Dose Tracking * Chemical Lifetime Dose Automatic Entry Manual Entr y Air kerma at the reference point (Ka,r) 272 mGy 0 mGy 272 mGy DLP 12,586 mGycm 12,586 mGycm 0 mGycm Resolved Problems Problem Noted Date Diagnosed Date Resolved Date Dizziness and giddiness 07/09/202312/20 Assessment & Plan (07/09/2023 5:09 PM HOSPITAL LIBRARIAN): Patient notes at times she feels slightly dizzy or unstable. She has difficulty characterizing. She denies sensation of near-syncope. She additionally denies vertiginous symptoms. She is unable to really describe what she feels. We will monitor for now. Advised if it worsens or she develops more significant symptoms to let me know. 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
--- OUTSIDE RECORDS SUMMARY | 2024-12-03 10:55 | XMS_ITS | CONTINUITY OF CARE DOCUMENT ---
Author Name shavon, shavon Address Unknown Organization [facility] Address [address] [place] [address] Phone [phone] Care Team Providers Care Dust Brush Assembler Name Role Phone South FRYE, Robby Unavailable [phone] FELIX HAMILTON Unavailable [phone] Chantal Knowles MD Unavailable PROBLEMS Condition Status Date Provider Notes Irregular heart beats active Lizette Kuo Family History of CVA or Stroke: completed - Brady Frazier Family History of CVA or Stroke: completed - Brady Frazier PACs active Robby jones MD Diabetes, Type 2 active Robby moses MD Hyperlipidemia active Robby rosales MD Hypertension active Robby ojnes MD Sleep apnea, obstructive active Angelina Dia MD Carotid bruits, bilateral active Shamar Plura d Atrial fibrillation active Urban Del Rosario First degree AV block active Jose Martin Ibanez Chest pain-type to be determined active Robby Dia MD Abnormal nuclear stress test active Robby Dia MD see note, schedule cath with [facility] at [facility]. pt is aware CAD active Prakash Mario MD Coronary Heart Disease active Kennedy Dia MD Aortic dissection active Myrtle Suarez P Arm pain, bilateral active Brady Frazier ENCOUNTERS Date Type Provider Location Encounter Diag nosis - In-person encounter Office Visit Robby Dia MD [place] [facility] Arm pain, bilateral - In-person encounter Office Visit Robby Dia MD [place] [facility] - In-person encounter Office Visit Robby Dia MD [place] [facility] Aortic dissection - In-person encounter Office Visit Robby Dia MD [place] [facility] Coronary Heart Disease - In-person encounter Office Visit Prakash Mario MD [place] [facility] CAD - In-person encounter Office Visit Robby Dia MD [facility] Chest pain-type to be determinedAbnormal nuclear stress test - In-person encounter Office Visit Robby Dia MD [place] [facility] Family History of CVA or Stroke:Family History of CVA or Stroke: - In-person encounter Office Visit Robby Dia MD [place] [facility] - In-person encounter Office Visit Robby Dia MD [place] [facility] First degree AV block - In-person encounter Office Visit Robby Dia MD [place] [facility] - In-person encounter Office Visit Robby Dia MD [place] [facility] Atrial fibrillation - In-person encounter Office Visit Robby Dia MD [place] [facility] Carotid bruits, bilateral - In-person encounter Office Visit Robby Dia MD [place] [facility] - In-person encounter Office Visit Robby Dia MD [place] [facility] PACsDiabetes, Type 2HyperlipidemiaHypertensi onSleep apnea, obstructive VITAL SIGNS Date Observation Value Provider Body Mass Index (Ratio) 44.44 kg/m2 Brayd Mamedzai blood pressure, cuff size large Ke rri Gruenenfelder blood pressure, diastolic 80 mm[Hg] Ke rri Gruenenfelder blood pressure, systolic 152 mm[Hg] Ker ri Gruenenfelder oxygen saturation, oximetry 94 % Marichuy Gruenenfelder respiratory rate E&M 14 /min Marichuy G ruenenfelder pulse rate 68 /min Marichuy Gruenenfe lder weight E&M 243 [lb_av] Marichuy Gruenenfe lder height E&M 62 [in_i] Marichuy Gruenenfe lder Body Mass Index (Ratio) 44.81 kg/m2 Brady Mamedzai blood pressure, cuff size large Ke rri Gruenenfelder blood pressure, diastolic 70 mm[Hg] Ke rri Gruenenfelder blood pressure, systolic 166 mm[Hg] Ker ri Gruenenfelder oxygen saturation, oximetry 97 % Marichuy Gruenenfelder respiratory rate E&M 16 /min Marichuy G ruenenfelder pulse rate 57 /min Marichuy Gruenenfe lder weight E&M 245 [lb_av] Marichuy Gruenenfe lder height E&M 62 [in_i] Marichuy Gruenenfe lder Body Mass Index (Ratio) 43.16 kg/m2 Sunshine Mohamud blood pressure, cuff size large Ke rri Gruenenfelder blood pressure, diastolic 72 mm[Hg] Ke rri Gruenenfelder blood pressure, systolic 170 mm[Hg] Ker ri Gruenenfelder oxygen saturation, oximetry 97 % Marichuy Cr respiratory rate E&M 16 /min Marichuy G pauly pulse rate 57 /min Marichuy iMki machado weight E&M 236 [lb_av] Marichuy Miki machado height E&M 62 [in_i] [facility] Body Mass Index (Ratio) 42.98 kg/m2 Zay Dia MD blood pressure, diastolic 84 mm[Hg] Li nkLog blood pressure, systolic 176 mm[Hg] [facility] blood pressure, diastolic 84 mm[Hg] Az matias [place] blood pressure, systolic 176 mm[Hg] [facility] [place] weight E&M 235 [lb_av] Marie edgar pulse rate 88 /min Marie edgar oxygen saturation, oximetry 98 % Marie Toth respiratory rate E&M 16 /min Leidy Toth blood pressure, cuff size large Az matias Toth height E&M 62 [in_i] Marie edgar Body Mass Index (Ratio) 42.98 kg/m2 Shirlene Mario MD blood pressure, cuff size large Ke rri Ollieueneoxana blood pressure, diastolic 70 mm[Hg] Ke rri Ollieueneoxana blood pressure, systolic 132 mm[Hg] Se ri Cr oxygen saturation, oximetry 97 % Marichuy Cr respiratory rate E&M 16 /min Marichuy G pauly pulse rate 68 /min Marichuy Miki saldaña weight E&M 235 [lb_av] Marichuy Gruenenfe lder height E&M 62 [in_i] Marichuy Gruenenfe lder Body Mass Index (Ratio) 44.44 kg/m2 Brady Frazier blood pressure, cuff size large Ke rri Gruenenfelder blood pressure, diastolic 90 mm[Hg] Ke rri Gruenenfelder blood pressure, systolic 158 mm[Hg] Ker ri Gruenenfelder oxygen saturation, oximetry 96 % Marichuy Gruenenfelder respiratory rate E&M 16 /min Marichuy G ruenenfelder pulse rate 87 /min Marichuy Gruenenfe lder weight E&M 243 [lb_av] Marichuy Gruenenfe lder height E&M 62 [in_i] Marichuy Gruenenfe lder Body Mass Index (Ratio) 44.44 kg/m2 Raoul may Chris blood pressure, cuff size large Ke rri Gruenenfelder blood pressure, diastolic 66 mm[Hg] Ke rri Gruenenfelder blood pressure, systolic 160 mm[Hg] Ker ri Gruenenfelder oxygen saturation, oximetry 98 % Marichuy Gruenenfelder respiratory rate E&M 16 /min Marichuy G ruenenfelder pulse rate 84 /min Marichuy Gruenenfe lder weight E&M 243 [lb_av] Marichuy Gruenenfe lder height E&M 62 [in_i] Marichuy Gruenenfe lder Body Mass Index (Ratio) 43.16 kg/m2 Zay Dia MD pulse rate 94 /min Tracey Block blood pressure, diastolic 80 mm[Hg] Br ittany Block blood pressure, systolic 140 mm[Hg] Vicenta bhupinder Block oxygen saturation, oximetry 95 % Tracey Block weight E&M 236 [lb_av] Tracey Block respiratory rate E&M 16 /min [facility] Block height E&M 62 [in_i] Tracey Block temperature site temporal Nay Tank sley temperature E&M 97.8 [degF] Nay Tanks carolin Body Mass Index (Ratio) 44.77 kg/m2 Zay Dia MD blood pressure, diastolic 71 mm[Hg] Karly Kennedy blood pressure, systolic 146 mm[Hg] Shey Kennedy oxygen saturation, oximetry 96 % EduinTorie Cardonaenson respiratory rate E&M 18 /min Saray Cardonaenson pulse rate 92 /min Eduin Bonds zenon weight E&M 244.8 [lb_av] Eduin gaminoon height E&M 62 [in_i] Eduin Bonds yadira Body Mass Index (Ratio) 42.98 kg/m2 Kunal Del Rosario blood pressure, diastolic 76 mm[Hg] Ki lleen Ribeiro blood pressure, systolic 140 mm[Hg] Simone lenz Ribeiro oxygen saturation, oximetry 96 % Wes Ribeiro respiratory rate E&M 16 /min Hoskins Ribeiro pulse rate 80 /min Hoskins Ribeiro weight E&M 235 [lb_av] Wes Ribeiro height E&M 62 [in_i] Wes Ribeiro Body Mass Index (Ratio) 40.60 kg/m2 Shamar Plurad blood pressure, cuff size large Ke rri Cr blood pressure, diastolic 90 mm[Hg] Ke rri Ollieueneoxana blood pressure, systolic 166 mm[Hg] Se blair Cr oxygen saturation, oximetry 98 % Marichuy Cr respiratory rate E&M 20 /min Marichuy Aldana pauly pulse rate 85 /min Marichuy [place] jeannetteer weight E&M 222 [lb_av] Marichuy Levinjovan machadoer height E&M 62 [in_i] Marichuy Levinebonisherwinlisandro er Body Mass Index (Ratio) 45.35 kg/m2 Zay Dia MD blood pressure, cuff size large Ke mabel Cr blood pressure, diastolic, standing 90 mm [Hg] Marichuy Cr blood pressure, systolic, standing 162 mm [Hg] Marichuy Cr oxygen saturation, oximetry 96 % Marichuy Cr respiratory rate E&M 18 /min Marichuy Aldana pauly pulse rate 94 /min Marichuy [facility] weight E&M 248 [lb_av] Marichuy [facility] height E&M 62 [in_i] Marichuy [facility] Body Mass Index (Ratio) 44.95 kg/m2 Zay Dia MD blood pressure, cuff size regular Kr isty [place] blood pressure, diastolic 80 mm[Hg] Kr isty [place] blood pressure, systolic 140 mm[Hg] Andrewi nathan [place] oxygen saturation, oximetry 97 % Brianne [place] respiratory rate E&M 17 /min Brianne [place] pulse rate 104 /min Brianne [place] weight E&M 245.8 [lb_av] Brianne [place] blood pressure, resting Yes Saulo mario [place] height E&M 62 [in_i] Brianne [place] ALLERGIES Allergy Name Onset Date Reaction Criticality Status PCN Low Criticality active RESULTS Date Observation Value Provider Reference Range Interpretation Location hemoglobin A1C, blood, as % of total hemoglobin 6.6 % OF TOTAL HGB [facility] <5.7 High prothrombin time (patient) 10.9 s [facility] 9.0-11.5 Normal international normalized ratio (INR) 1.1 [facility] Normal basophils as percent of blood leukocytes 0.5 % [facility] Normal eosinophils as percent of blood leukocytes 2.7 % [facility] Normal monocyte count, blood 8.4 % [facility] Normal lymphocyte count, blood 31.0 % [facility] Normal neutrophils as percent of blood leukocytes 57.4 % [facility] Normal basophils, absolute, manual 32 cells/mcL [facility] 0-200 Normal eosinophils, absolute, manual 170 cells/mcL [facility] 15-500 Normal monocytes, absolute, manual 529 cells/mcL [facility] 200-950 Normal lymphocytes, absolute 1953 CELLS/UL [facility] 850-3900 Normal Absolute Neutrophil count 3616 cells/mcL [facility] 5469-1405 Normal mean platelet volume 9.3 fL [facility] 7.5-12.5 Normal platelet count 306 THOUSAND/UL [facility] 140-400 Normal red blood cell distribution width 12.9 % [facility] 11.0-15.0 Normal mean corpuscular hemoglobin concentration, RBC 32.5 G/DL [facility] 32.0-36.0 Normal mean corpuscular hemoglobin, RBC 28.7 pg [facility] 27.0-33.0 Normal mean corpuscular volume, RBC 88.3 fL [facility] 80.0-100.0 Normal hematocrit, blood 37.9 % [facility] 35.0-45.0 Normal hemoglobin electrophoresis, blood 12.3 [facility] 11.7-15.5 Normal erythrocyte (RBC) count 4.29 MILLION/UL [facility] 3.80-5.10 Normal leukocyte (white blood cells) count, blood 6.3 THOUSAND/UL [facility] 3.8-10.8 Normal PTT patient 29 s [facility] 23-32 Normal NT-pro BNP 148 [facility] Normal alanine aminotransferase (SGPT), serum 15 1/L [facility] 6-29 Normal aspartate aminotransferase (SGOT), serum 16 1/L [facility] 10-35 Normal alkaline phosphatase, serum 52 1/L [facility] 37-153 Normal bilirubin, serum, total 0.5 mg/dL [facility] 0.2-1.2 Normal albumin/globulin ratio, serum 1.7 (calc) [facility] 1.0-2.5 Normal globulins, serum, total 2.6 G/DL (CALC) [facility] 1.9-3.7 Normal albumin, serum 4.3 g/dL [facility] 3.6-5.1 Normal protein, total, serum 6.9 g/dL [facility] 6.1-8.1 Normal calcium, serum 9.5 mg/dL [facility] 8.6-10.4 Normal carbon dioxide, venous blood 30 mmol/L [facility] 20-32 Normal chloride, serum 100 mmol/L [facility] 98-110 Normal potassium, serum 4.3 mmol/L [facility] 3.5-5.3 Normal sodium, serum 135 mmol/L [facility] 135-146 Normal urea nitrogen/creatinine ratio, serum NOT APPLICABLE (calc) [facility] 6-22 creatinine, serum 0.98 mg/dL [facility] 0.60-1.00 Normal urea nitrogen, blood 16 mg/dL [facility] 7-25 Normal blood glucose, random 119 mg/dL [facility] 65-99 High cholesterol, non-HDL, total 51 MG/DL (CALC) [facility] <130 Normal cholesterol/HDL ratio, serum, percent 2.0 (calc) [facility] <5.0 Normal LDL cholesterol, serum 29 MG/DL (CALC) [facility] Normal triglyceride, serum, fasting 135 mg/dL [facility] <150 Normal HDL cholesterol, serum 51 mg/dL [facility] > OR = 50 Normal cholesterol, serum 102 mg/dL [facility] <200 Normal prothrombin time (patient) 10.1 s [facility] 9.0-11.5 Normal international normalized ratio (INR) 1.0 [facility] Normal basophils as percent of blood leukocytes 0.6 % [facility] Normal eosinophils as percent of blood leukocytes 2.5 % [facility] Normal monocyte count, blood 8.7 % [facility] Normal lymphocyte count, blood 32.2 % [facility] Normal neutrophils as percent of blood leukocytes 56 % [facility] Normal basophils, absolute, manual 38 cells/mcL [facility] 0-200 Normal eosinophils, absolute, manual 158 cells/mcL [facility] 15-500 Normal monocytes, absolute, manual 548 cells/mcL [facility] 200-950 Normal lymphocytes, absolute 2029 CELLS/UL [facility] 850-3900 Normal Absolute Neutrophil count 3528 cells/mcL [facility] 5096-4035 Normal mean platelet volume 8.9 fL [facility] 7.5-12.5 Normal platelet count 330 THOUSAND/UL [facility] 140-400 Normal red blood cell distribution width 12.5 % [facility] 11.0-15.0 Normal mean corpuscular hemoglobin concentration, RBC 33.6 G/DL [facility] 32.0-36.0 Normal mean corpuscular hemoglobin, RBC 29.2 pg [facility] 27.0-33.0 Normal mean corpuscular volume, RBC 87.0 fL [facility] 80.0-100.0 Normal hematocrit, blood 38.1 % [facility] 35.0-45.0 Normal hemoglobin electrophoresis, blood 12.8 [facility] 11.7-15.5 Normal erythrocyte (RBC) count 4.38 MILLION/UL [facility] 3.80-5.10 Normal leukocyte (white blood cells) count, blood 6.3 THOUSAND/UL [facility] 3.8-10.8 Normal calcium, serum 10.0 mg/dL LinkLog 8.6-10.4 Normal carbon dioxide, venous blood 27 mmol/L [facility] 20-32 Normal chloride, serum 103 mmol/L [facility] 98-110 Normal potassium, serum 4.1 mmol/L [facility] 3.5-5.3 Normal sodium, serum 138 mmol/L [facility] 135-146 Normal urea nitrogen/creatinine ratio, serum NOT APPLICABLE (calc) [facility] 6-22 creatinine, serum 0.88 mg/dL [facility] 0.60-1.00 Normal urea nitrogen, blood 16 mg/dL [facility] 7-25 Normal blood glucose, random 128 mg/dL [facility] 65-99 High prothrombin time (patient) 9.9 s [facility] 9.0-11.5 Normal international normalized ratio (INR) 1.0 LinkLog Normal basophils as percent of blood leukocytes 0.5 % [facility] Normal eosinophils as percent of blood leukocytes 2.4 % [facility] Normal monocyte count, blood 8.0 % [facility] Normal lymphocyte count, blood 30.4 % [facility] Normal neutrophils as percent of blood leukocytes 58.7 % [facility] Normal basophils, absolute, manual 32 cells/mcL [facility] 0-200 Normal eosinophils, absolute, manual 151 cells/mcL [facility] 15-500 Normal monocytes, absolute, manual 504 cells/mcL [facility] 200-950 Normal lymphocytes, absolute 1915 CELLS/UL [facility] 850-3900 Normal Absolute Neutrophil count 3698 cells/mcL [facility] 0721-3733 Normal mean platelet volume 9.0 fL [facility] 7.5-12.5 Normal platelet count 387 THOUSAND/UL [facility] 140-400 Normal red blood cell distribution width 12.8 % [facility] 11.0-15.0 Normal mean corpuscular hemoglobin concentration, RBC 33.0 G/DL [facility] 32.0-36.0 Normal mean corpuscular hemoglobin, RBC 28.8 pg [facility] 27.0-33.0 Normal mean corpuscular volume, RBC 87.2 fL [facility] 80.0-100.0 Normal hematocrit, blood 38.2 % [facility] 35.0-45.0 Normal hemoglobin electrophoresis, blood 12.6 [facility] 11.7-15.5 Normal erythrocyte (RBC) count 4.38 MILLION/UL [facility] 3.80-5.10 Normal leukocyte (white blood cells) count, blood 6.3 THOUSAND/UL [facility] 3.8-10.8 Normal calcium, serum 9.7 mg/dL [facility] 8.6-10.4 Normal carbon dioxide, venous blood 25 mmol/L [facility] 20-32 Normal chloride, serum 100 mmol/L [facility] 98-110 Normal potassium, serum 4.3 mmol/L [facility] 3.5-5.3 Normal sodium, serum 136 mmol/L [facility] 135-146 Normal urea nitrogen/creatinine ratio, serum NOT APPLICABLE (calc) [facility] 6-22 creatinine, serum 0.88 mg/dL [facility] 0.60-1.00 Normal urea nitrogen, blood 17 mg/dL [facility] 7-25 Normal blood glucose, random 110 mg/dL [facility] 65-99 High cholesterol, non-HDL, total 95 MG/DL (CALC) [facility] <130 Normal cholesterol/HDL ratio, serum, percent 2.9 (calc) [facility] <5.0 Normal LDL cholesterol, serum 65 MG/DL (CALC) [facility] Normal triglyceride, serum, fasting 244 mg/dL [facility] <150 High HDL cholesterol, serum 49 mg/dL [facility] > OR = 50 Low cholesterol, serum 144 mg/dL [facility] <200 Normal HISTORY OF MEDICATION USE Medication Status Instructions Dates Provider Indications Com ments carvedilol 6.25 mg tablet active TAKE ONE AND ONE-HALF TABLETS TWICE A DAY 12/17 [facility] magnesium oxide 400 mg (241.3 mg magnesium) tablet active Take 1 tablet by mouth twice a day due for follow up 11/13 Marichuy Hankins hydrochlorothiazid e 25 mg tablet active TAKE 1 TABLET DAILY 10/18 [facility] magnesium oxide 400 mg (241.3 mg magnesium) tablet completed TAKE 1 TABLET TWICE A DAY - 11/13 Marichuy Hankins hydrochlorothiazid e 25 mg tablet completed Take 1 tablet by mouth once a day 08/19 - 10/18 [facility] hydrochlorothiazid e 25 mg tablet completed Take 1 tablet by mouth twice a day 08/16 - 08/19 Robby Dia MD hydrochlorothiazid e 12.5 mg capsule completed - 07/25 Brady Frazier hydrochlorothiazid e 25 mg tablet completed Take 1 tablet by mouth once a day 07/25 - 08/16 Estefany Mckeon Norvasc 10 mg tablet active Take 1 tablet by mouth once a day TAKE ONE TABLET BY MOUTH ONCE DAILY 06/25 Myrtle Nuñez NP Norvasc 10 mg tablet completed take 1/2 pill daily. Hold if systolic BP <120. 06/25 - 06/25 Myrtle Nuñez NP hydrochlorothiazid e 12.5 mg capsule completed - 06/25 Myrtle Nuñez NP carvedilol 6.25 mg tablet completed Take 1 1/2 tablet by mouth twice a day - 12/17 Brooks Gray Plavix 75 mg tablet completed Take 1 tablet by mouth once a day 4-5 days before procedure 03/07 - 06/25 Myrtle Nuñez NP rosuvastatin 40 mg tablet active TAKE 1 TABLET DAILY AT BEDTIME 03/07 Monik Patel magnesium oxide 400 mg magnesium tablet completed Take 1 tablet by mouth twice a day 03/07 - Lin Ramachandran amiodarone 200 mg tablet completed Take 1 tablet by mouth once a day once daily 03/07 - 07/25 Brady Frazier simvastatin 20 mg tablet completed - 02/28 Prakash Mario MD ezetimibe 10 mg tablet active TAKE 1 TABLET DAILY 12/09 Marie Toth Zetia 10 mg tablet completed 1 tablet by mouth once a day 10/05 - 12/09 Mercedes Momin cholecalciferol (vitamin D3) 1,250 mcg (50,000 unit) capsule completed 1 capsule by mouth once a week 10/05 - 06/25 Myrtle Nuñez NP oxybutynin chloride 5 mg tablet completed tablet by mouth once a day 10/05 - 06/25 Myrtle Nuñez NP letrozole 2.5 mg tablet completed Take 1 tablet by mouth once a day 11/21 - 06/25 Myrtle Nuñez STRATEGY MANAGER #90, 90 days supply, Prescribed by HUSAM MARSHALL, Roseann 11/22/2019 hydrochlorothiazid e 12.5 mg capsule completed Take 1 capsule by mouth once a day 07/04 - 07/25 Brady Frazier VITAMIN D TABLET completed take one pill a day - 01/23 Eduin Kennedy magnesium oxide 400 mg (241.3 mg magnesium) tablet completed Take 1 tablet by mouth twice a day 06/30 - 03/07 Denice Frazier flecainide 100 mg tablet completed Take 1 tablet by mouth twice a day 12/01 - 02/28 Prakash Mario MD CINNAMON CAPSULE completed 1,000 mg once daily 02/13 - 01/23 Eduin Kennedy CALCIUM + D + K TABLET completed 2,000 International Units once daily 02/13 - 01/23 Marichuy DIAL FISH OIL 1200 MG ORAL CAPSULE completed TAKE ONE TABLET BY MOUTH ONCE DAILY 02/13 - 01/23 Eduin Kennedy metformin 500 mg tablet extended release 24 hr active Take 1 tablet by mouth once a day 02/13 Brianne North lisinopril 40 mg tablet active Take 1 tablet by mouth once a day 02/13 Brianne North amlodipine 10 mg tablet completed Take 1 tablet by mouth once a day 02/13 - 06/25 Myrtle Nuñez NP simvastatin 20 mg tablet completed Take 1 tablet by mouth once a day 02/13 - 03/07 Denice Frazier SOCIAL HISTORY Date Observation Value Provider social history E&M S moking History: Chantal izquierdo is a former smoker. Brady Frazier social history reviewed E&M revi ewed - no changes required Brady Frazier smoking, year quit 1965 Marichuy last number of years as a smoker 4 a Marichuy Hankins smoking history, tot al pack/day 0.5 Marichuy Hankins cigarette use yes Marichuy quinn smoking status Former smoker Marichuy marinellielder social history E&M S moking History: P atient is a former smoker. Brady Frazier social history reviewed E&M revi ewed - no changes required Brady Frazier smoking, year quit 1965 Marichuy avila number of years as a smoker 4 a Marichuy Hankins smoking history, tot al pack/day 0.5 Marichuy Hankins cigarette use yes Marichuy quinn smoking status Former smoker Marichuy mcleaner social history E&M S moking History: P atradha is a former smoker. Tracey Mohamud social history reviewed E&M revi ewed - no changes required Tracey Mohamud smoking, year quit 1965 Marichuy avila number of years as a smoker 4 a Marichuy Hankins smoking history, tot al pack/day 0.5 Marichuy Hankins cigarette use yes Marichuy qunin smoking status Former smoker Marichuy marinellielder social history E&M S moking History: P atient is a former smoker. Denice Frazier social history reviewed E&M revi ewed - no changes required Denice Frazier smoking, year quit 1965 Marie Toth number of years as a smoker 4 a Marie Toth smoking history, tot al pack/day 0.5 Marie Toth cigarette use yes Marie Benjamin zeeshan smoking status Former smoker Marie narayan social history E&M S moking History: P felecia is a former smoker. Prakash Mario MD social history reviewed E&M revi ewed - no changes required Prakash Mario MD smoking, year quit 1965 Marichuy arenasmiguel number of years as a smoker 4 a Marichuy Hankins smoking history, tot al pack/day 0.5 Marichuy Gibsonkai cigarette use yes Marichuy Owusubreana elder smoking status Former smoker Marichuy Nunez yveselder social history E&M S moking History: P felecia is a former smoker. Brady Frazier social history reviewed E&M revi ewed - no changes required Brady Frazier smoking, year quit 1965 Marichuy crowemike number of years as a smoker 4 a Marichuy Hankins smoking history, tot al pack/day 0.5 Marichuy Wayer cigarette use yes Marichuy Levinarron quinn smoking status Former smoker Marichuy Owususherwin mcleaner social history E&M S moking History: P felecia is a former smoker. Shannan Perez social history reviewed E&M revi ewed - no changes required Shannan Perez smoking, year quit 1965 Marichuy crowefeldharley number of years as a smoker 4 a Marichuy Hankins smoking history, tot al pack/day 0.5 Marichuy Olliejimer cigarette use yes Marichuy Levinarron elder smoking status Former smoker Marichuy Nunez nfelder social history reviewed E&M revi ewed - no changes required Jose Martin Shamar smoking, year quit 1965 Tracey Block number of years as a smoker 4 a Tracey Block smoking history, tot al pack/day 0.5 Tracey Block cigarette use yes Tracey Block smoking status Former smoker Tracey Acosta ck social history reviewed E&M revi ewed - no changes required Jose Martin Shamar smoking, year quit 1965 Eduin Kennedy number of years as a smoker 4 a Eduin Kennedy smoking history, tot al pack/day 0.5 Eduin Kennedy cigarette use yes Eduin gaminoon smoking status Former smoker Eduin Maurice social history reviewed E&M revi ewed - no changes required Urban Del Rosario social history E&M S moking History: Chantal izquierdo is a former smoker. Urban Del Rosario smoking, year quit 1965 Hoskins I ngram number of years as a smoker 4 a Hoskins Ribeiro smoking history, tot al pack/day 0.5 Hoskins Ribeiro cigarette use yes Hoskins Ribeiro smoking status Former smoker Hoskins Ingr am number of grandchildren Robby Ibanez Plurgraciela social history E&M S moking History: Chantal izquierdo is a former smoker. Shamar Plurad social history reviewed E&M revi ewed - no changes required Shamar Plurad smoking, year quit 1965 Marichuy last number of years as a smoker 4 a Marichuy Hankins smoking history, tot al pack/day 0.5 Marichuy Hankins cigarette use yes Marichuy quinn smoking status Former smoker Marichuy daigle social history E&M S moking History: Chantal izquierdo is a former smoker. Robby Dia MD social history reviewed E&M revi ewed - no changes required Robby Dia MD smoking, year quit 1964 Marichuy arenasmiguel number of years as a smoker 4 a Marichuy Cr smoking history, tot al pack/day 0.5 Marichuy Cr cigarette use yes Marichuy Gibson [facility] smoking status Former smoker Marichuy Levinsilvia daigle number of years as a smoker 4 a Robby Dia MD smoking history, tot al pack/day 0.5 Robby Dia MD smoking, year quit 1964 Robby villanueva MD cigarette use yes Robby lorenzana MD social history E&M S moking History: U nknown if patient has ever smoked. Robby Dia MD smoking status Former smoker Robby humphrey MD social history reviewed E&M revi ewed - no changes required Robby Dia MD FUNCTIONAL STATUS Date Observation Value Provider HRA, CV Assess/Plan, Angina (inactive) Management Plan continue current therapy Brady Frazier HRA, CV Assess/Plan, Angina (inactive) Management Plan continue current therapy Brady Frazier HRA, CV Assess/Plan, Angina (inactive) Management Plan continue current therapy Tracey Mohamud HRA, CV Assess/Plan, Angina (inactive) Management Plan continue current therapy Denice Frazier FAMILY HISTORY Family Member Condition Aunt Family History of CV A or Stroke: Mother Family History of CV A or Stroke: INSURANCE PROVIDERS Payer name Policy type / Coverage type [place] red green party ID [facility] [id number] [place] Medicare [id number] ADVANCE DIRECTIVES Name Date DISCUSSED - NO DECISION MADE TREATMENT PLAN Date Name Performer [id number],C,will check AB I of UE Brady Frazier [id number],C, 03/31 at [facility], during diagnostic angiography she experienced an aortic dissection and the [facility] RCA intervention was aborted and she was sent emergently to [facility] for cardiothoracic intervention. 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 Notably, sometime at OSH after aortic dissection was found, pt got a CT with contrast; after finishing the CT, pt experienced chest pain, reported it feeling like an elephant sitting on her chest. Unclear if pt had an NH or if this was from her aortic dissection. pt was discharged 04/0604/07/22 C T TAVR T here is no significant interval change in injury of the right p roximal right coronary artery compared to 04/04/2022 CT. No aortic i njury is appreciated. No anomalous coronary artery origin or c ourse. Severe multivessel calcified and noncalcified coronary a rtery disease. Unchanged moderate enlargement of the heart without p ericardial effusion. Will obtain echo and AAA at this time to assess Brady Frazier [id number],C, H er updated medication list for this problem includes: Lisinopril 40 Mg Tablet (Lisinopril) ..... Take 1 tablet by mouth once a day Metformin 500 Mg Tablet Extended Release 24 Hr (Metformin) ..... Take 1 tablet by mouth once a day Brady Frazier [id number],C,no recent epi sodes Brady Frazier [id number],C, B P today: 152/80 P rior BP: 166/70 (07/25/2022) Labs Reviewed: C reat: 0.98 (08/02/2022) C hol: 102 (08/02/2022) HDL: 51 (08/02/2022) LDL: 29 MG/DL (CALC) (08/02/2022) T (08/02/2022) Bradywinter Rowland [id number],C, S he had a cath which showed LAD that has 20-30% prox., RCA is large and dominant and has <90% prox, 60-70% mid. 03/2022 Bradywinter Rowlandi [id number],C,N o chest pain currently. A dvised her to consider ECP Bradywinter Rowlandi [id number],S, Brady Rowland i [id number],C,W ill start her on HCTZ 25 mg I ncrease Coreg 6.25 mg to 1.5 tablets BID BP today: 166/70 P rior BP: 170/72 (04/25/2022) Labs Reviewed: C reat: 0.88 (03/25/2022) C hol: 144 (02/18/2022) HDL: 49 (02/18/2022) LDL: 65 MG/DL (CALC) (02/18/2022) T (02/18/2022) [facility] [id number],C,E KG today shows sinus bradycardia W ill stop her Amiodarone W ill check PFTs for lung function Brady radha [id number],C, S he had a cath which showed LAD that has 20-30% prox., RCA is large and dominant and has 90% prox, 60-70% mid. Brady radha [id number],C, B P today: 170/72 rechecked BP standing L 175/89 HR 64 R 1088/94 HR 63 Prior BP: 176/84 (03/07/2022) Labs Reviewed: C reat: 0.88 (03/25/2022) C hol: 144 (02/18/2022) HDL: 49 (02/18/2022) LDL: 65 MG/DL (CALC) (02/18/2022) T (02/18/2022) Discussion of benefits for remote patient monitoring took place. Patient gives consent for remote monitoring of physiologic parameters including, but not limited to, weight, blood pressure, pulse oximetry, respiratory flow rate. will add norvasc 10mg 1/2 tab daily. recommend holding this if SPB <120. IF BP is consistently elevated >160 x2 days, would increase dose to 1 tab. Myrtle Diamondmilton SAUNDERS [id number],C,c ath: 02/20/22 mild calcification of L side and LAD with 20-30% prox toherwide is a long vessel that wraps around the apex. L cx is a small to mod sized vessel and is nondomoniant with minor plaquing. R is a very lare and dominant vessel which is havily calcified prox and mid, has a 90% prox, a 60-70 mid and it gives off a bid PD and PL. EF 55%, aoritc pressure 134/64, LV is 140 with EDP of 13. see above The following medications were removed from the medication list: Amlodipine 10 Mg Tablet (Amlodipine) ..... Take 1 tablet by mouth once a day Plavix 75 Mg Tablet (Clopidogrel) ..... Take 1 tablet by mouth once a day 4-5 days before procedure Her updated medication list for this problem includes: Carvedilol 6.25 Mg Tablet (Carvedilol) ..... Take 1 tablet by mouth twice a day take 1 tablet by mouth twice daily Lisinopril 40 Mg Tablet (Lisinopril) ..... Take 1 tablet by mouth once a day will recommend ECP Myrtle Savannah SAUNDERS [id number],C, 03/31 at [facility], during diagnostic angiography she experienced an aortic dissection and the [facility] RCA intervention was aborted and she was sent emergently to [facility] for cardiothoracic intervention. 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 Notably, sometime at OSH after aortic dissection was found, pt got a CT with contrast; after finishing the CT, pt experienced chest pain, reported it feeling like an elephant sitting on her chest. Unclear if pt had an NH or if this was from her aortic dissection. pt was discharged 04/06 pt has follow up with CTS 05/[address]. BP is elevated today, review of BP log BP has been~130-140 at home. rechecked BP standing L 175/89, 64, R standing 188/94, 63. will arrange for RPM will add norvasc 10mg 1/2 tab daily. recommend holding this if SPB <120. IF BP is consistently elevated >160 x2 days, would increase dose to 1 tab. Discussion of benefits for remote patient monitoring took place. Patient gives consent for remote monitoring of physiologic parameters including, but not limited to, weight, blood pressure, pulse oximetry, respiratory flow rate. Myrtle Nuñez NP [id number],C,compliant wit h cpap Myrtle Nuñez NP [id number],C, carotids C ONCLUSIONS: 1. Mild plaque with less than 50% stenosis of the internal carotid arteries bilaterally. 2. Vertebral flow is antegrade bilaterally. Myrtle Nuñez NP [id number],C,E KG today SB 52. t elesentry monitor 09/2020 0% AF burden Myrtle Nuñez NP [id number],CRobby MD [id number],C,A dvised limiting salt intake. B P today: 176/84 P rior BP: 132/70 (02/28/2022) Labs Reviewed: C reat: 0.88 (02/18/2022) C hol: 144 (02/18/2022) HDL: 49 (02/18/2022) LDL: 65 MG/DL (CALC) (02/18/2022) T (02/18/2022) Her updated medication list for this problem includes: Hydrochlorothiazide 12.5 Mg Capsule (Hydrochlorothiazide) ..... Take 1 capsule by mouth once a day Lisinopril 40 Mg Tablet (Lisinopril) ..... Take 1 tablet by mouth once a day Amlodipine 10 Mg Tablet (Amlodipine) ..... Take 1 tablet by mouth once a day Bradywinter Frazier [id number],S, H er updated medication list for this problem includes: Lisinopril 40 Mg Tablet (Lisinopril) ..... Take 1 tablet by mouth once a day Metformin 500 Mg Tablet Extended Release 24 Hr (Metformin) ..... Take 1 tablet by mouth once a day Brady Rowland [id number],S, Brady Rowland i [id number],C,W ill start Amoidarone 200 mg BID for one week then down to once daily afterwards. H er updated medication list for this problem includes: Plavix 75 Mg Tablet (Clopidogrel) ..... Take 1 tablet by mouth once a day 4-5 days before procedure Amiodarone 200 Mg Tablet (Amiodarone) ..... Take 1 tablet by mouth twice a day twice a day for a week then once daily Bradywinter Rowland [id number],W,S he had a cath which showed LAD that has 20-30% prox., RCA is large and dominant and has 90% prox, 60-70% mid. Dr. Mario could not cross recommended reattempt at [facility] due to better equipment. Discussed details of the procedure which would occur at [facility]. Pt expressed she would sotero to address this. Her updated medication list for this problem includes: Plavix 75 Mg Tablet (Clopidogrel) ..... Take 1 tablet by mouth once a day 4-5 days before procedure Lisinopril 40 Mg Tablet (Lisinopril) ..... Take 1 tablet by mouth once a day Amlodipine 10 Mg Tablet (Amlodipine) ..... Take 1 tablet by mouth once a day [facility] Janett [id number],C,S he had a cath which showed LAD that has 20-30% prox., RCA is large and dominant and has 90% prox, 60-70% mid. Dr. Mario could not cross recommended reattempt at [facility] due to better equipment, if she becomes symptomatic. pt expressed she would sotero to address this. Fakaitlyndarian Freddie [id number],S, T he patient is using CPAP on a regular basis. The patient has been benefiting from therapy and should continue use. Prakash Mario MD [id number],S, S top flecainide since she has CAD. She can discuss with Dr. Dia what antiarrhythmic she'd benefit from now that we know she has significant CAD. Prakash Mario MD [id number],N, W e did a cath on her but couldn't cross her RCA because it was heavily calcified. She isn't having any chest pain or SOB. She is going to think about whether she'd like us to try and fix her RCA with a rotoblader. Prakash Mario MD [id number],B, B P today: 132/70 P rior BP: 158/90 (01/03/2022) Her updated medication list for this problem includes: Hydrochlorothiazide 12.5 Mg Capsule (Hydrochlorothiazide) ..... Take 1 capsule by mouth once a day Lisinopril 40 Mg Tablet (Lisinopril) ..... Take 1 tablet by mouth once a day Amlodipine 10 Mg Tablet (Amlodipine) ..... Take 1 tablet by mouth once a day Prakash Mario MD [id number],S, H er updated medication list for this problem includes: Simvastatin 20 Mg Tablet (Simvastatin) Ezetimibe 10 Mg Tablet (Ezetimibe) ..... Take 1 tablet daily Simvastatin 20 Mg Tablet (Simvastatin) ..... Take 1 tablet by mouth once a day Prakash Mario MD [id number],C,A dvised limiting salt intake. Attributable to recent stress from passing. BP today: 158/90 P rior BP: 160/66 (10/05/2020) Brady Frazier [id number],C, i n sinus on EKG Brady Frazier [id number],C, H er updated medication list for this problem includes: Ezetimibe 10 Mg Tablet (Ezetimibe) ..... Take 1 tablet daily Simvastatin 20 Mg Tablet (Simvastatin) ..... Take 1 tablet by mouth once a day Brady Rowland [id number],C, H er updated medication list for this problem includes: Lisinopril 40 Mg Tablet (Lisinopril) ..... Take 1 tablet by mouth once a day Metformin 500 Mg Tablet Extended Release 24 Hr (Metformin) ..... Take 1 tablet by mouth once a day [facility] [id number],C, T he patient is using CPAP on a regular basis. The patient has been benefiting from therapy and should continue use. [facility] [id number],C,L ess than 50% disease on doppler [facility] Electrophysiology:will check RYLEE of UE Brady [facility] Electrophysiology: 03/31 at [facility], during diagnostic angiography she experienced an aortic dissection and the [facility] RCA intervention was aborted and she was sent emergently to [facility] for cardiothoracic intervention. 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 Notably, sometime at OSH after aortic dissection was found, pt got a CT with contrast; after finishing the CT, pt experienced chest pain, reported it feeling like an elephant sitting on her chest. Unclear if pt had an NH or if this was from her aortic dissection. pt was discharged 04/0604/07/22 C T TAVR T here is no significant interval change in injury of the right p roximal right coronary artery compared to 04/04/2022 CT. No aortic i njury is appreciated. No anomalous coronary artery origin or c ourse. Severe multivessel calcified and noncalcified coronary a rtery disease. Unchanged moderate enlargement of the heart without p ericardial effusion. Will obtain echo and AAA at this time to assess [facility] Electrophysiology: H er updated medication list for this problem includes: Lisinopril 40 Mg Tablet (Lisinopril) ..... Take 1 tablet by mouth once a day Metformin 500 Mg Tablet Extended Release 24 Hr (Metformin) ..... Take 1 tablet by mouth once a day [facility] Electrophysiology:no recent epis odes [facility] Electrophysiology: B P today: 152/80 P rior BP: 166/70 (07/25/2022) Labs Reviewed: C reat: 0.98 (08/02/2022) C hol: 102 (08/02/2022) HDL: 51 (08/02/2022) LDL: 29 MG/DL (CALC) (08/02/2022) T (08/02/2022) [facility] Electrophysiology: S he had a cath which showed LAD that has 20-30% prox., RCA is large and dominant and has <90% prox, 60-70% mid. 03/2022 [facility] Electrophysiology:No chest pain currently. A dvised her to consider ECP [facility] Elect[facility] Electrophysiology:Wi ll start her on HCTZ 25 mg I ncrease Coreg 6.25 mg to 1.5 tablets BID BP today: 166/70 P rior BP: 170/72 (04/25/2022) Labs Reviewed: C reat: 0.88 (03/25/2022) C hol: 144 (02/18/2022) HDL: 49 (02/18/2022) LDL: 65 MG/DL (CALC) (02/18/2022) T (02/18/2022) [facility] Electrophysiology:EK G today shows sinus bradycardia W ill stop her Amiodarone W ill check PFTs for lung function [facility] Electrophysiology: S he had a cath which showed LAD that has 20-30% prox., RCA is large and dominant and has 90% prox, 60-70% mid. Brady Frazier Electrophysiology: B P today: 170/72 rechecked BP standing L 175/89 HR 64 R 1088/94 HR 63 Prior BP: 176/84 (03/07/2022) Labs Reviewed: C reat: 0.88 (03/25/2022) C hol: 144 (02/18/2022) HDL: 49 (02/18/2022) LDL: 65 MG/DL (CALC) (02/18/2022) T (02/18/2022) Discussion of benefits for remote patient monitoring took place. Patient gives consent for remote monitoring of physiologic parameters including, but not limited to, weight, blood pressure, pulse oximetry, respiratory flow rate. will add norvasc 10mg 1/2 tab daily. recommend holding this if SPB <120. IF BP is consistently elevated >160 x2 days, would increase dose to 1 tab. Myrtle Nuñez NP Electrophysiology:ca th: 02/20/22 mild calcification of L side and LAD with 20-30% prox toherwide is a long vessel that wraps around the apex. L cx is a small to mod sized vessel and is nondomoniant with minor plaquing. R is a very lare and dominant vessel which is havily calcified prox and mid, has a 90% prox, a 60-70 mid and it gives off a bid PD and PL. EF 55%, aoritc pressure 134/64, LV is 140 with EDP of 13. see above The following medications were removed from the medication list: Amlodipine 10 Mg Tablet (Amlodipine) ..... Take 1 tablet by mouth once a day Plavix 75 Mg Tablet (Clopidogrel) ..... Take 1 tablet by mouth once a day 4-5 days before procedure Her updated medication list for this problem includes: Carvedilol 6.25 Mg Tablet (Carvedilol) ..... Take 1 tablet by mouth twice a day take 1 tablet by mouth twice daily Lisinopril 40 Mg Tablet (Lisinopril) ..... Take 1 tablet by mouth once a day will recommend ECP Myrtle Nuñez NP Electrophysiology: at [facility], during diagnostic angiography she experienced an aortic dissection and the [facility] RCA intervention was aborted and she was sent emergently to [facility] for cardiothoracic intervention. 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 Notably, sometime at OSH after aortic dissection was found, pt got a CT with contrast; after finishing the CT, pt experienced chest pain, reported it feeling like an elephant sitting on her chest. Unclear if pt had an NH or if this was from her aortic dissection. pt was discharged 04/06 pt has follow up with CTS 05/[address]. BP is elevated today, review of BP log BP has been~130-140 at home. rechecked BP standing L 175/89, 64, R standing 188/94, 63. will arrange for RPM will add norvasc 10mg 1/2 tab daily. recommend holding this if SPB <120. IF BP is consistently elevated >160 x2 days, would increase dose to 1 tab. Discussion of benefits for remote patient monitoring took place. Patient gives consent for remote monitoring of physiologic parameters including, but not limited to, weight, blood pressure, pulse oximetry, respiratory flow rate. Myrtle Nuñez NP Electrophysiology:compliant with cpap Myrtle Nuñez NP Electrophysiology:2021 carotids C ONCLUSIONS: 1. Mild plaque with less than 50% stenosis of the internal carotid arteries bilaterally. 2. Vertebral flow is antegrade bilaterally. Myrtle Nuñez NP Electrophysiology:EK G today SB 52. t elesentry monitor 09/2020 0% AF burden Myrtle Nuñez NP Electrophysiology Robby lorenzana MD Electrophysiology:Ad vised limiting salt intake. B P today: 176/84 P rior BP: 132/70 (02/28/2022) Labs Reviewed: C reat: 0.88 (02/18/2022) C hol: 144 (02/18/2022) HDL: 49 (02/18/2022) LDL: 65 MG/DL (CALC) (02/18/2022) T (02/18/2022) Her updated medication list for this problem includes: Hydrochlorothiazide 12.5 Mg Capsule (Hydrochlorothiazide) ..... Take 1 capsule by mouth once a day Lisinopril 40 Mg Tablet (Lisinopril) ..... Take 1 tablet by mouth once a day Amlodipine 10 Mg Tablet (Amlodipine) ..... Take 1 tablet by mouth once a day Robby Dia MD Electrophysiology: H er updated medication list for this problem includes: Lisinopril 40 Mg Tablet (Lisinopril) ..... Take 1 tablet by mouth once a day Metformin 500 Mg Tablet Extended Release 24 Hr (Metformin) ..... Take 1 tablet by mouth once a day Brady Frazier Electrophysiology Brady Frazier Electrophysiology:Wi ll start Amoidarone 200 mg BID for one week then down to once daily afterwards. H er updated medication list for this problem includes: Plavix 75 Mg Tablet (Clopidogrel) ..... Take 1 tablet by mouth once a day 4-5 days before procedure Amiodarone 200 Mg Tablet (Amiodarone) ..... Take 1 tablet by mouth twice a day twice a day for a week then once daily Robby Dia MD Electrophysiology:[facility] had a cath which showed LAD that has 20-30% prox., RCA is large and dominant and has 90% prox, 60-70% mid. Dr. Mario could not cross recommended reattempt at [facility] due to better equipment. Discussed details of the procedure which would occur at [facility]. Pt expressed she would sotero to address this. Her updated medication list for this problem includes: Plavix 75 Mg Tablet (Clopidogrel) ..... Take 1 tablet by mouth once a day 4-5 days before procedure Lisinopril 40 Mg Tablet (Lisinopril) ..... Take 1 tablet by mouth once a day Amlodipine 10 Mg Tablet (Amlodipine) ..... Take 1 tablet by mouth once a day Robby Dia MD Electrophysiology:[facility] had a cath which showed LAD that has 20-30% prox., RCA is large and dominant and has 90% prox, 60-70% mid. Dr. Mario could not cross recommended reattempt at [facility] due to better equipment, if she becomes symptomatic. pt expressed she would sotero to address this. Denice Frazier Cardiology: T he patient is using CPAP on a regular basis. The patient has been benefiting from therapy and should continue use. Prakash Mario MD Cardiology: S top flecainide since she has CAD. She can discuss with Dr. Dia what antiarrhythmic she'd benefit from now that we know she has significant CAD. Prakash Mario MD Cardiology: Lidia sanderson did a cath on her but couldn't cross her RCA because it was heavily calcified. She isn't having any chest pain or SOB. She is going to think about whether she'd like us to try and fix her RCA with a rotoblader. Prakash Mario MD Cardiology: B P today: 132/70 P rior BP: 158/90 (01/03/2022) Her updated medication list for this problem includes: Hydrochlorothiazide 12.5 Mg Capsule (Hydrochlorothiazide) ..... Take 1 capsule by mouth once a day Lisinopril 40 Mg Tablet (Lisinopril) ..... Take 1 tablet by mouth once a day Amlodipine 10 Mg Tablet (Amlodipine) ..... Take 1 tablet by mouth once a day Prakash Mario MD Cardiology: H er updated medication list for this problem includes: Simvastatin 20 Mg Tablet (Simvastatin) Ezetimibe 10 Mg Tablet (Ezetimibe) ..... Take 1 tablet daily Simvastatin 20 Mg Tablet (Simvastatin) ..... Take 1 tablet by mouth once a day Prakash Mario MD Electrophysiology:Ad vised limiting salt intake. Attributable to recent stress from passing. BP today: 158/90 P rior BP: 160/66 (10/05/2020) Brady Frazier Electrophysiology: i n sinus on EKG Brady Frazier Electrophysiology: H er updated medication list for this problem includes: Ezetimibe 10 Mg Tablet (Ezetimibe) ..... Take 1 tablet daily Simvastatin 20 Mg Tablet (Simvastatin) ..... Take 1 tablet by mouth once a day Brady fabiojeremiah Electrophysiology: H er updated medication list for this problem includes: Lisinopril 40 Mg Tablet (Lisinopril) ..... Take 1 tablet by mouth once a day Metformin 500 Mg Tablet Extended Release 24 Hr (Metformin) ..... Take 1 tablet by mouth once a day [facility] Electrophysiology: T he patient is using CPAP on a regular basis. The patient has been benefiting from therapy and should continue use. [facility] Electrophysiology:Le ss than 50% disease on doppler from 12/2021 [facility] Electrophysiology Fo llow up: s odium restriction, med compliance reviewed B P today: 160/66 P rior BP: 140/80 (12/09/2019) Her updated medication list for this problem includes: Hydrochlorothiazide Caps 12.5mg (Hydrochlorothiazide) ..... Take 1 capsule daily Lisinopril 40 Mg Oral Tablet (Lisinopril) ..... Take one tablet by mouth once daily Amlodipine Besylate 10 Mg Oral Tablet (Amlodipine besylate) ..... Take one tablet by mouth once daily Orders: A perlita Duplex Ultrasound (CPT-04101) C arotid Duplex Bilateral (CPT-21120) C omplete Echo (CPT-49248) 9 9214 MOD 30-39min (CPT-43792) Shannan Perez Electrophysiology Fo llow up:start zetia Orders: A perlita Duplex Ultrasound (CPT-15809) C arotid Duplex Bilateral (CPT-27390) 9 9214 MOD 30-39min (CPT-87849) Her updated medication list for this problem includes: Zetia 10 Mg Oral Tablet (Ezetimibe) ..... One tab. daily Simvastatin 20 Mg Oral Tablet (Simvastatin) ..... Take one tablet by mouth once daily Shannan Perez Electrophysiology Fo llow up: H er updated medication list for this problem includes: Flecainide Acet Tabs 100mg (Flecainide acetate) ..... Take 1 tablet twice a day Lisinopril 40 Mg Oral Tablet (Lisinopril) ..... Take one tablet by mouth once daily Amlodipine Besylate 10 Mg Oral Tablet (Amlodipine besylate) ..... Take one tablet by mouth once daily Orders: M onitor - Telemetry (Mobile Cardiac) (CPT-28108) Shannan Perez Electrophysiology Fo llo up: i n sinus on EKG H er updated medication list for this problem includes: Flecainide Acet Tabs 100mg (Flecainide acetate) ..... Take 1 tablet twice a day & #13;Orders: E KG (CPT-21786) M onitor - Telemetry (Mobile Cardiac) (CPT-97200) C omplete Echo (CPT-58490) 9 9214 MOD 30-39min (CPT-62740) Shannan Perez Cardiology:not givin g AV node blocking agents such as flecanide Jose Martin Shamar Cardiology: H er updated medication list for this problem includes: Flecainide Acet Tabs 100mg (Flecainide acetate) ..... Take 1 tablet twice a day Lisinopril 40 Mg Oral Tablet (Lisinopril) ..... Take one tablet by mouth once daily Amlodipine Besylate 10 Mg Oral Tablet (Amlodipine besylate) ..... Take one tablet by mouth once daily Jose Martin Ibanez Cardiology:The patie nt is using CPAP on a regular basis. The patient has been benefiting from therapy and should continue use. Jose Martin Ibanez Cardiology:in sinus on EKG today O rders: E KG (CPT-96351) M obile Cardiac Tele (CPT-74038) Jose Martin Ibanez Cardiology: H er updated medication list for this problem includes: Hydrochlorothiazide Caps 12.5mg (Hydrochlorothiazide) ..... Take 1 capsule daily Lisinopril 40 Mg Oral Tablet (Lisinopril) ..... Take one tablet by mouth once daily Amlodipine Besylate 10 Mg Oral Tablet (Amlodipine besylate) ..... Take one tablet by mouth once daily BP today: 140/80 P rior BP: 146/71 (06/03/2019) Jose Martin Ibanez Electrophysiology: B P today: 146/71 P rior BP: 140/76 (12/03/2018) Her updated medication list for this problem includes: Hydrochlorothiazide 12.5 Mg Oral Capsule (Hydrochlorothiazide) ..... Take one pill a day Lisinopril 40 Mg Oral Tablet (Lisinopril) ..... Take one tablet by mouth once daily Amlodipine Besylate 10 Mg Oral Tablet (Amlodipine besylate) ..... Take one tablet by mouth once daily Jose Martin Ibanez Electrophysiology:__ C onclusions: 1 . Mild plaque with less than 50% stenosis of the internal carotid arteries bilaterally. 2 . Vertebral flow is antegrade bilaterally. 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 T he minimum heart rate was 42 BPM. F irst Degree Atrioventricular Block was documented with the longest PA interval measuring 279 milliseconds (strips 1 2-13). R eport Date: 12/19/2018. //TIA Her updated medication list for this problem includes: Flecainide Acet Tabs 100mg (Flecainide acetate) ..... Take 1 tablet twice a day Jose Martin Ibanez Electrophysiology:He r updated medication list for this problem includes: Flecainide Acetate 100 Mg Oral Tablet (Flecainide acetate) ..... One tablet twice daily Orders: E KG (CPT-23270) M obile Cardiac Tele (CPT-56763) S chedule Followup (*) Urban Del Rosario Electrophysiology: H er updated medication list for this problem includes: Flecainide Acetate 100 Mg Oral Tablet (Flecainide acetate) ..... One tablet twice daily Lisinopril 40 Mg Oral Tablet (Lisinopril) ..... Take one tablet by mouth once daily Amlodipine Besylate 10 Mg Oral Tablet (Amlodipine besylate) ..... Take one tablet by mouth once daily Orders: Frantz obile Cardiac Tele (CPT-15653) S chedule Followup (*) Urban Del Rosario Electrophysiology:BP today: 140/76 P rior BP: 166/90 (10/30/2017) Her updated medication list for this problem includes: Hydrochlorothiazide 12.5 Mg Oral Capsule (Hydrochlorothiazide) ..... Take one pill a day Lisinopril 40 Mg Oral Tablet (Lisinopril) ..... Take one tablet by mouth once daily Amlodipine Besylate 10 Mg Oral Tablet (Amlodipine besylate) ..... Take one tablet by mouth once daily Orders: M obile Cardiac Tele (CPT-91086) S chedule Followup (*) S chedule Followup (*) Urban Del Rosario Electrophysiology:He r updated medication list for this problem includes: Flecainide Acetate 100 Mg Oral Tablet (Flecainide acetate) ..... One tablet twice daily Lisinopril 40 Mg Oral Tablet (Lisinopril) ..... Take one tablet by mouth once daily Amlodipine Besylate 10 Mg Oral Tablet (Amlodipine besylate) ..... Take one tablet by mouth once daily Orders: E KG (CPT-05525) M obile Cardiac Tele (CPT-29868) S chedule Followup (*) Urban Del Rosario Electrophysiology Fo llow up :AAA U/S in next few weeks. B P today: 166/90 P rior BP: 162/90 (03/27/2017) Her updated medication list for this problem includes: Hydrochlorothiazide 12.5 Mg Oral Capsule (Hydrochlorothiazide) ..... Take one pill a day Lisinopril 40 Mg Oral Tablet (Lisinopril) ..... Take one tablet by mouth once daily Amlodipine Besylate 10 Mg Oral Tablet (Amlodipine besylate) ..... Take one tablet by mouth once daily Orders: C omplete Echo (CPT-66576) A perlita Duplex Ultrasound (AAA) (CPT-23442) 9 9214 MOD Complex (CPT-23812) M obile Cardiac Tele (CPT-96026) Shamar [facility] Electrophysiology Fo llow up :Ordered carotid U/S in next few weeks. O rders: C arotid Duplex Bilateral (CPT-89896) A perlita Duplex Ultrasound (AAA) (CPT-44197) 9 9214 MOD Complex (CPT-75110) Shamar [facility] Electrophysiology Fo llow up :Continue to wear CPAP at night. Shamar [facility] Electrophysiology Fo llow up :Ordered carotid U/S in next few weeks. O rders: C arotid Duplex Bilateral (CPT-76872) A perlita Duplex Ultrasound (AAA) (CPT-43502) Shamar [facility] Electrophysiology Fo llow up :Continue to wear CPAP at night. Shamar [facility] Electrophysiology Fo llow up : B P today: 166/90 P rior BP: 162/90 (03/27/2017) Her updated medication list for this problem includes: Hydrochlorothiazide 12.5 Mg Oral Capsule (Hydrochlorothiazide) ..... Take one pill a day Lisinopril 40 Mg Oral Tablet (Lisinopril) ..... Take one tablet by mouth once daily Amlodipine Besylate 10 Mg Oral Tablet (Amlodipine besylate) ..... Take one tablet by mouth once daily Orders: C omplete Echo (CPT-08176) A perlita Duplex Ultrasound (AAA) (CPT-72701) 9 9214 MOD Complex (CPT-32519) M obile Cardiac Tele (CPT-45971) Shamar [facility] Electrophysiology Fo llow up :Ordered echo in 1 year. Tele sentry for 1 week. O rders: E KG (CPT-67791) C omplete Echo (CPT-82030) 9 9214 MOD Complex (CPT-16645) M obile Cardiac Tele (CPT-36017) Her updated medication list for this problem includes: Flecainide Acetate 100 Mg Oral Tablet (Flecainide acetate) ..... One tablet twice daily Lisinopril 40 Mg Oral Tablet (Lisinopril) ..... Take one tablet by mouth once daily Amlodipine Besylate 10 Mg Oral Tablet (Amlodipine besylate) ..... Take one tablet by mouth once daily Shamar Larsen Electrophysiology Fo llow up: H er updated medication list for this problem includes: Metformin Hcl Er 500 Mg Oral [id number] (Metformin hcl) ..... Take one tablet by mouth once daily Lisinopril 40 Mg Oral Tabs (Lisinopril) ..... Take one tablet by mouth once daily Robby Dia MD Electrophysiology Fo llow up: H er updated medication list for this problem includes: Simvastatin 20 Mg Oral Tabs (Simvastatin) ..... Take one tablet by mouth once daily Robby Dia MD Electrophysiology Fo llow up: B P today: 162/90 P rior BP: 140/80 (02/13/2017) Robby Dia MD Electrophysiology Fo llow up: H er updated medication list for this problem includes: Flecainide Acetate 100 Mg Oral Tabs (Flecainide acetate) ..... One tablet twice daily Lisinopril 40 Mg Oral Tabs (Lisinopril) ..... Take one tablet by mouth once daily Amlodipine Besylate 10 Mg Oral Tabs (Amlodipine besylate) ..... Take one tablet by mouth once daily Orders: S NOMED-CT: [id number] Current Medications Documented (SCT-[id number]) E KG (CPT-09626) H olter Monitor 24 Hr (CPT-92868) C omplete Echo (CPT-93363) 9 9214 MOD Complex (CPT-61588) Robby Dia MD Electrophysiology:I have reviewed the ZIO report, todays EKG and previous EKG. I disussed the option of ablation with the patient, including the details of the procedure and the risks and benefits. Robby Dia MD Electrophysiology: H er updated medication list for this problem includes: Lisinopril 40 Mg Oral Tabs (Lisinopril) ..... Take one tablet by mouth once daily Amlodipine Besylate 10 Mg Oral Tabs (Amlodipine besylate) ..... Take one tablet by mouth once daily Robby Dia MD Date Name Aorta Duplex Ultraso und Complete Echo Arterial Duplex Uppe r Extremity Bilateral ECP - Medicare PROTHROMBIN TIME WIT H INR PARTIAL THROMBOPLAST IN TIME, ACTIVATED PROBNP, N TERMINAL CBC (INCLUDES DIFF/P LT) HEMOGLOBIN A1c LIPID PANEL COMPREHENSIVE METABO LIC PANEL, W/EGFR DLCO - 82487 FRC - 87670 FVC - 22811 ECP - Medicare RPM (remote patient monitoring) PROTHROMBIN TIME WIT H INR CBC (INCLUDES DIFF/P LT) BASIC METABOLIC PANE L W/EGFR Cardiac Cath - Left - CNE PROTHROMBIN TIME WIT H INR LIPID PANEL CBC (INCLUDES DIFF/P LT) BASIC METABOLIC PANE L W/EGFR Cardiac Cath - Left - GC Monitor - Telemetry (Mobile Cardiac) Stress Regadenoson Aorta Duplex Ultraso und Carotid Duplex Bilat eral Complete Echo Carotid Duplex Bilat eral Aorta Duplex Ultraso und Monitor - Telemetry (Mobile Cardiac) Complete Echo Aorta Duplex Ultraso und Carotid Duplex Bilat eral Mobile Cardiac Tele Mobile Cardiac Tele Mobile Cardiac Tele Aorta Duplex Ultraso und (AAA) Carotid Duplex Bilat eral Complete Echo Complete Echo Holter Monitor 24 Hr Sleep Study Titratio n STR - Adenosine Sleep Study Home HISTORY OF PROCEDURES Procedure Date Procedure Name Provider Procedure Notes S tatus Spirometry Robby gomez MD completed FVC / MVV with bronchodilator - 71996 Robby Dia MD completed FRC - 91493 Robby gomez MD completed SpO2 w/o 6min walk/titration Robby Dia MD completed SVC - 37531 Robby gomez MD completed DLCO - 69806 Robby gomez MD completed EKG Robby gomez MD completed Schedule Followup Robby lorenzana MD [address] Dia completed EKG Robby gomez MD completed EKG Robby gomez MD completed Mobile Cardiac Telem etry - Tech Robby Dia MD completed Mobile Cardiac Telem etry - Prof Robby Dia MD completed EKG Robby gomez MD completed Mobile Cardiac Telem etry - Tech Robby Dia MD completed Mobile Cardiac Telem etry - Prof Robby Dia MD completed EKG Robby gomez MD completed EKG Robby gomez MD completed Mobile Cardiac Telem etry - Tech Robby Dia MD completed Mobile Cardiac Telem etry - Prof Robby Dia MD completed Schedule Followup Robby lorenzana MD f/u in 6 months completed EKG Robby gomez MD completed Mobile Cardiac Telem etry - Tech Robby Dia MD completed Mobile Cardiac Telem etry - Prof Robby Dia MD completed EKG Robby gomez MD completed EKG Robby gomez MD completed SNOMED-CT: [id number] Current Medications Documented Robby Dia MD completed Holter, 24 or 48 Robby jones MD completed Stress EKG Alan Guillen MD complet ed Regadenoson, 4 units ulius Lazaro moses MD completed Cardiolite, 2 units Saulius Mariela humphrey MD completed SPECT Images Alan Guillen MD compl eted EKG Robby gomez MD completed SNOMED-CT: [id number] Current Medications Documented Robby Dia MD completed BECKYO Holter [facility] Pramod Henry MD c ompleted
== END 2024-12-03 10:51 | disposition home or self-care (01) ==
LOC: ANHIMG 10:52
PROVIDERS: PCP Nurse Practitioner Family; Visit Provider Nurse Practitioner Family
DX: M81.0 Age-related osteoporosis without current pathological fracture (principal); M85.89 Other specified disorders of bone density and structure, multiple sites; Z78.0 Asymptomatic menopausal state; Z13.820 Encounter for screening for osteoporosis
CPT/HCPCS: 77080

== ENCOUNTER 2025-01-08 13:09 | Emergency (ER) | payer MEDICARE, SELFPAY ==
--- NOTE | ~2025-01-08 | XR_ITS ---
EXAM: XR orbits min 4V DATE: 01/08/2025 13:58 HISTORY: pain with trauma, left orbit . COMPARISON: None available. FINDINGS: Intact, symmetric orbits. Aerated spaces are clear. No fracture or dislocation. No lytic o r blastic lesion. No abnormal intracranial calcification.. IMPRESSION: No acute osseous finding in the orbits. If pain persists, or if clinical suspicion of inj ury is high, recommend CT of the face for further evaluation. Reviewed, dictated and finalized at location K. IMPRESSION: No acute osseous finding in the orbits. If pain persists, or if cli nical suspicion of injury is high, recommend CT of the face for further evaluat ion.
--- NOTE | ~2025-01-08 | XR_ITS ---
EXAM: XR hand LT min 3V DATE: 01/08/2025 13:58 HISTORY: pain with trauma . COMPARISON: None available. FINDINGS: Normal mineralization. No fracture or dislocation. No lytic or blastic lesion. Mild scatte red degenerative changes. No erosion or periosteal change. Soft tissues within normal limits. IMPRESSION: No acute osseous finding in the left hand. Reviewed, dictated and finalized at location K.
--- OUTSIDE RECORDS SUMMARY | 2025-01-08 13:12 | XMS_ITS | Data Portability ---
Author Organization [place] [facility], Main Office Address [address] [place] [address] Care Team Providers Care Associate Dean Of Students Name Role Phone BILL BARNES Primary Care Provider Assessment No assessment recorded. Plan of Treatment [...] Abnormal Flag Note LastModifiedBy Organization Detail LastModifiedTime 03/31/20 22 03/31/2022 CT, angio gram, abdom en, w/ contr ast No observ ation record ed. [id number] [facility] [address], [place], [address], 08/20/2022 02:51:52 11/14/19 23 11/12/2022 trans -thor acic echoc ardio gram (TTE) (PROC ) No observ ation record ed. [email or web address] [facility] [address], [place], [address], 11/19/2022 09:58:25 11/14/19 23 11/12/2022 US, doppl er, arter ial No observ ation record ed. [email or web address] [facility] [address], [place], [address], 11/19/2022 10:06:47 Result Notes None recorded. Problems Name Problem SNOMED Code Status Onset Date Resolution Date Notes Provider Name and Address Organization Details Recorded Time Impaired dentition 953561077 Active Not Available [facility] 3 02:45:55 Increased frequency of urination 361633126 Completed Not Available [facility] 3 02:45:55 Type 2 diabetes mellitus without complicati on 437477745 Active Not Available [facility] 3 02:45:55 Bronchitis 81266232 Completed Not Available [facility] 3 02:45:56 Vitamin D deficiency 88510288 Active Not Available [facility] 3 02:45:56 Pharyngiti s 797248919 Completed Not Available [facility] 3 02:45:56 Hyperlipid emia 49408351 Active Not Available [facility] 3 02:45:56 Essential hypertensi on 50879192 Active Not Available [facility] 3 02:45:56 Gingivitis 40049232 Active Not Available [facility] 3 02:45:56 Hypercalce jeanna 60134116 Active Not Available [facility] 3 02:45:56 Diabetes mellitus 46780501 Completed Not Available [facility] 3 02:45:56 Obstructiv e sleep apnea syndrome 09417995 Active 2017 Not Available [facility] 3 02:45:57 Body mass index 30+ - obesity 721132939 Active 2017 Not Available [facility] 3 02:45:55 Constipati on 77346959 Active 2018 Not Available [facility] 3 02:45:55 Osteopenia 453179424 Active 2018 Not Available [facility] 3 02:45:55 Sleep apnea 06645392 Active 2018 Not Available [facility] 3 02:45:57 At increased risk for cardiovasc ular event 563815926 Active 2019 Not Available [facility] 3 02:45:56 History of malignant neoplasm of breast 745710075 Active 2020 Not Available [facility] 3 02:45:56 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 Procedures Surgical History Date Name Laterality Status Provider Name and Address Organization Details Recorded Time Cholecystectomy completed Not Available [facility] 08/20/2022 02:41:01 Hysterectomy, Partial completed Not Available [facility] 08/20/2022 02:41:01 Hernia Repair completed Not Available [facility] 08/20/2022 02:41:01 Colonoscopy completed Not Available [facility] 08/20/2022 02:41:01 Imaging Results None recorded. Procedure Notes None recorded. Medical Equipment None Reported. Allergies Allergen ID Allergen Name Allergen Category Reaction Reaction Severity Criticality Documentation Date Start Date Code Code System Note Provider Name and Address Organization Details Recorded Time 3877 Product containin g penicilli n (product) medicatio n Not available Not available Not available 08/20/2022 43255 8001 SNOMED Not Available [facility] 3 02:51:27 Medications Name Sig Start Date [...] in Arterial blood by Pulse oximetry Systolic And Diastolic Provider Name and Address Organization Details Last Updated DateTime 3 160.02 cm 43.4 kg/m2 617011. 13 g 62 /min 97 % 97 % 124/52 mm[Hg] [facility] [employer] 3 14:24:13 Date Recorded Body height Body mass index (BMI) Body weight Body temperature Heart rate Oxygen saturation Oxygen saturation in Arterial blood by Pulse oximetry Systolic And Diastolic Provider Name and Address Organization Details Last Updated DateTime 3 160.02 cm 42.9 kg/m2 426900. 35 g 96.3 [degF] 60 /min 95 % 95 % 136/60 mm[Hg] [facility] [employer] 3 14:27:57 Date Recorded Body height Body mass index (BMI) Body weight Body temperature Heart rate Oxygen saturation Oxygen saturation in Arterial blood by Pulse oximetry Systolic And Diastolic Provider Name and Address Organization Details Last Updated DateTime 3 160.02 cm 42.9 kg/m2 179676. 35 g 98.3 [degF] 56 /min 98 % 98 % 150/60 mm[Hg] [facility] [employer] [facility] 3 12:24:16 Date Recorded Body mass index (BMI) Body height Oxygen saturation Oxygen saturation in Arterial blood by Pulse oximetry Heart rate Body temperature Body weight Systolic And Diastolic Provider Name and Address Organization Details Last Updated DateTime 2 39.9 kg/m2 160.02 cm 99 % 99 % 54 /min 97.4 [degF] 473165. 28 g 120/64 mm[Hg] Not Available [facility] 3 02:43:30 Date Recorded Body mass index (BMI) Body height Oxygen saturation Oxygen saturation in Arterial blood by Pulse oximetry Heart rate Body temperature Body weight Systolic And Diastolic Provider Name and Address Organization Details Last Updated DateTime 2 41.5 kg/m2 160.02 cm 95 % 95 % 73 /min 98.1 [degF] 949007. 61 g 126/80 mm[Hg] Not Available [facility] 3 02:43:30 Social History Question Answer Notes LastModified by [employer] Details LastModified Time Tobacco Smoking Status Former Smoker Jazmyne [facility] [employer] [facility] 03/18/2023 12:22:33 What Is Your Level Of Caffeine Consumption? Moderate [id number] Information not available 08/20/2022 How Much Tobacco Do You Chew? None [id number] Information not available 08/20/2022 Which Illicit Or Recreational Drugs Have You Used? None [email or web address] Information not available 03/18/2023 When Did You Quit Smoking? 16+yearssince lastcigarette [email or web address] Information not available 03/18/2023 Do You Have Any Pets? No [email or web address] Information not available 03/18/2023 Sex: Unknown Functional Status Question Answer Note LastModified by [employer] Details LastModified Time Do you use any illicit or recreational drugs? No [email or web address] Information not available 03/18/2023 What is your level of alcohol consumption? Occasional [id number] Information not available 08/20/2022 Do you or have you ever used smokeless tobacco? Never used smokeless tobacco [id number] Information not available 08/20/2022 What is your occupation? RETIRED [email or web address] Information not available 03/18/2023 Do you or have you ever used e-cigarettes or vape? Never used electronic cigarettes [email or web address] Information not available 03/18/2023 What is your exercise level? Occasional [id number] Information not available 08/20/2022 Mental Status None recorded. Family History Relationship Description Onset Age of this Age Resolved Age Notes LastModified by Organization Details LastModified Time Mother Cerebrovascu lar accident [id number] Not available 08/20/2022 02:41:04 Father Ulcer [id number] Not available 08/20/2022 02:41:04 Medical History Condition Response DIABETES, TYPE Y HEARTBURN / REFLUX Y HYPERTENSION Y HIGH CHOLESTEROL / HYPERLIPIDEMIA Y Gynecological HistoryNo gynecological history recorded. Obstetrics History GPAL:G 0 P 0 0 0 0 Immunizations Vaccine Type Date Status Note Provider Nam e and Address Organization Details Recorded Time COVID-19, mRNA, LNP-S, PF, 30 mcg/0.3 mL dose 1 completed Not Available [facility] 08/20/2022 02:51:08 COVID-19, mRNA, LNP-S, PF, 30 mcg/0.3 mL dose 1 completed Not Available [facility] 08/20/2022 02:51:08 Influenza, split virus, quadrivalent, preservative 0 completed Not Available [facility] 08/20/2022 02:51:09 Influenza, split virus, quadrivalent, preservative 2 completed Not Available [facility] 08/20/2022 02:51:09 Tdap 2 completed Not Available [facility] 08/20/2022 02:51:09 Influenza, high-dose, quadrivalent, PF 1 completed Not Available [facility] 08/20/2022 02:51:09 Influenza, high-dose, trivalent, PF 0 completed Not Available [facility] 08/20/2022 02:51:09 Pneumococcal conjugate PCV 13 9 completed Not Available [facility] 08/20/2022 02:51:09 Influenza, high-dose, trivalent, PF 8 completed Not Available [facility] 08/20/2022 02:51:09 Influenza, high-dose, trivalent, PF 7 completed Not Available [facility] 08/20/2022 02:51:09 Influenza, high-dose, trivalent, PF 5 completed Not Available [facility] 08/20/2022 02:51:09 pneumococcal polysaccharide PPV23 5 completed Not Available [facility] 08/20/2022 02:51:10 Influenza, split virus, trivalent, PF 3 completed Not Available [facility] 08/20/2022 02:51:10 Past Encounters Encounter ID Performer Location Encounter Start Date Encounter Closed Date Diagnosis/Indication Diagnosis SNOMED-CT Code Diagnosis ICD10 Code Diagnosis Note [id number] [facility] [place] [facility] [place] [address] [place] [address] 09/13/2020 00:00:00 09/13/2020 21:50:23 [id number] Cole Cardenas MD [facility] [place] [facility] [address] [place] [address] 01/07/2021 00:00:00 01/07/2021 12:17:53 [id number] [facility] ic_Gateway [facility] [place] [address] [place] [address] 03/12/2021 00:00:00 03/12/2021 16:46:50 [id number] Cole Cardenas MD [facility] [place] [facility] [place] [address] 03/19/2021 00:00:00 03/19/2021 14:36:22 [id number] Cole Cardenas MD [facility] [place] [facility] [place] [address] 04/30/2021 00:00:00 04/30/2021 10:57:30 [id number] Cole Cardenas MD [facility] [place] [facility] [place] [address] 09/16/2021 00:00:00 09/16/2021 14:29:42 [id number] [facility] [address] [facility] [address] [place] [address] 02/25/2022 00:00:00 02/25/2022 15:14:31 [id number] Nette Harvey [facility] [place] [address] [place] [address] 04/09/2022 00:00:00 04/09/2022 13:27:35 [id number] Cole Cardenas MD [facility] [address] [facility] [address] [place] [address] 04/14/2022 00:00:00 04/14/2022 14:21:00 [id number] Nette Harvey [facility] [place] [address] [place] [address] 10/08/2022 14:15:57 10/08/2022 15:09:37 Obstructive sleep apnea syndrome 36281117 G47.33 Study done 03/2017 with an AHI [...] TC in 2 months, PRN for concerns [id number] [facility] [place] [address] [place] [address] 12/09/2022 14:09:45 12/09/2022 15:06:38 Obstructive sleep apnea syndrome 69077354 G47.33 Study done 03/2017 with an AHI [...] TC in 2 months, PRN for concerns [id number] [facility] [place] [address] [place] [address] 03/18/2023 12:13:16 03/18/2023 14:28:13 Obstructive sleep apnea syndrome 50727591 G47.33 Study done 03/2017 with an AHI [...] Name 03/15/2023 1 [place] Maddison Sam [id number] Maddison Sam 03/16/2023 2 [place] [id number] Maddison Sam [id number] Maddison Sam Notes Date Note Type [...] had multiple attempts at troubleshooting with the company, she has had good interaction with Mitch.In addition she has had mask changesContinues to report wetness around the bridge of her nose and mouth as wellHas adjusted humidity multiple timesShmaria e is requesting a new mask option today, she was fitted when she had her false teeth in but does not wear them to sleep GAY Lynne [address], [place], [address], [employer] 10/08/2022 17:14:46 12/09/2022 text/html Maddison presents t moriah on RUPAL and new PAPContinues to have difficulty with use, feels like her pressure is too high.Reports that she has had multiple attempts at troubleshooting with the company and has mutiple masks.She has turned off her humidityShe has restless sleep and fatigue.Energy levels are fair.Feels like a mask will work good for several nights but the starts to irritate her GAY Lynne [address], [address], [place], [address], [employer] 12/09/2022 15:37:11 03/18/2023 text/html Maddison presents t moriah on OSAShe tells me that her pressure is better and she has nightly use.Does not like this machine as much as her old ResMedShe has turned off her humidityShe has restless sleep and fatigue. but this has been improvingEnergy levels are fair.Does not wake at night R/T mask leak or fatigue GAY Lynne [address], [address], [place], [address], [employer] 03/18/2023 21:16:56 OBGyn Episode No OBEpisode recorded.
--- OUTSIDE RECORDS SUMMARY | 2025-01-08 13:12 | XMS_ITS ---
Author Organization [facility] Address [address] [place] [address] Care Team Providers Care Hand Packer/Packager Name Role Phone Robby Dia MD Unavailable Giana Torres MD Unavailable [phone] Mohit Ralph MD Unavailable Muriel Jimenez NP Unavailable Brock Peraza DO Unavailable Sydnee Sorensen NP Primary Care Provider [phone] Renae Brady Unavailable Active Problems Problem Noted Date Diagnosed Date Bilateral lower extremity edema 05/27/2024 OAB (overactive bladder) 07/09/2023 Assessment & Plan (07/09/2023 5:10 PM TECHNICAL COMMUNICATION TEACHER): Chronic issue. Has more issues with nocturia [...] 01/07/2023 Assessment & Plan (08/15/2024 12:26 PM TECHNICAL COMMUNICATION TEACHER): Last vit D 28. Continue supplementation Assessment & Plan (01/08/2024 3:21 PM CDT): Chronic. Check and replete as needed Carpal tunnel syndrome, bilateral 01/07/2023 Assessment & Plan (01/08/2024 3:28 PM CDT): Chronic. Mild nighttime symptoms. Consider use of wrist splints Assessment & Plan (07/09/2023 5:08 PM TECHNICAL COMMUNICATION TEACHER): Encouraged use of wrist splints with repetitive activity at night. No signs of thenar atrophy. Offered EMG nerve conduction studies to confirm diagnosis but patient defers. She will continue to monitor hand symptoms Class 3 severe obesity due t o excess calories with serious comorbidity and body mass index (BMI) of 45.0 to 49.9 in adult 09/03/2022 Assessment & Plan (08/15/2024 12:22 PM TECHNICAL COMMUNICATION TEACHER): BMI Follow-up includes: nutrition counseling and exercise counseling. Assessment & Plan (01/08/2024 3:21 PM CDT): Chronic. Suboptimally controlled and needs improvement. Counseled patient on regular exercise. Consider chair aerobics and low-impact activities. She was encouraged to work on diet and weight loss. Monitor Assessment & Plan (07/09/2023 5:08 PM TECHNICAL COMMUNICATION TEACHER): Chronic. Suboptimally controlled. Needs significant improvement. Counseled [...] concerns). Assessment & Plan (08/15/2024 1:33 PM TECHNICAL COMMUNICATION TEACHER): Due for repeat scan in May 2025. Managed by cardiothoracic surgery, Dr. Patel. Currently on carvedilol, lisinopril Assessment & Plan (01/08/2024 3:28 PM CDT): Remote history of dissection of the aorta.. Treated nonoperatively and has resolved. She follows with Cardiothoracic specialists yearly Assessment & Plan (07/08/2023 6:37 PM TECHNICAL COMMUNICATION TEACHER): Chronic. Follows with cardiology/cardiothoracic surgery. Has CT angiogram completed a couple of months ago which shows that it was stable. They are just monitoring in recommending management of blood pressure. She will see him back in 1 year CAD (coronary artery disease) 03/10/2022 Overview (03/10/2022): Added automatically from request for surgery [id number] Assessment & Plan (08/15/2024 12:31 PM TECHNICAL COMMUNICATION TEACHER): Continue crestor and zetia, aspirin, Managed by [...] Monitor Assessment & Plan (07/09/2023 5:06 PM TECHNICAL COMMUNICATION TEACHER): Chronic. Denies chest pain. Continue risk factor modification. On ASA, high- intensity statin in, Zetia. Continue care per cardiology work on blood pressure control History of breast cancer 04/26/2019 Malignant neoplasm of upper- inner quadrant of left breast in female, estrogen receptor positive 04/22/2019 Assessment & Plan (08/15/2024 1:36 PM TECHNICAL COMMUNICATION TEACHER): History of. Managed by oncology . Sees oncology 3/4- 5 years post treatment. Finished anastrozole tx. Assessment & Plan (01/08/2024 3:21 PM CDT): Chronic. Continue routine monitoring with Oncology. Continue Arimidex. No signs of recurrence Assessment & Plan (07/08/2023 6:37 PM TECHNICAL COMMUNICATION TEACHER): Chronic. Follows with Oncology. Remains on Arimidex. Doing well Osteopenia 12/20/2018 Assessment & Plan (08/15/2024 12:34 PM TECHNICAL COMMUNICATION TEACHER): Continue vit D supplementation. BMD ordered Assessment & Plan (01/08/2024 3:21 PM CDT): Reported remote diagnosis. She is past due for updated bone density. Ordered Atrial fibrillation 12/03/2018 Assessment & Plan (08/15/2024 12:31 PM TECHNICAL COMMUNICATION TEACHER): Sees cardio 12/02 Cardio is requesting records from [facility] to hopefully help explain why she is not on anticoagulant given her CHADS-VASc score of 6 and history of atrial fibrillation. Due to mild bilateral lower extremity edema continue furosemide 20 mg daily p.r.n. edema Continue aspirin. Assessment & Plan (01/08/2024 3:19 PM CDT): Chronic. Controlled. 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 Cardiology at [facility] previously deferred NOAC but for unknown reason. She remains on aspirin. I see no contraindication from my standpoint to considering NOAC if her new vice president [employer] feels it would be recommended. However, if patient does start having issues with increasing falls then we may need to stay with an aspirin. She has slight increased fall risk based on her STEADI score Assessment & Plan (07/09/2023 5:06 PM TECHNICAL COMMUNICATION TEACHER): Continue medication care per Cardiology. Denies any recent palpitations. Remains on ASA. Not currently on NOAC Hyperlipidemia 02/13/2017 Assessment & Plan (08/15/2024 12:21 PM TECHNICAL COMMUNICATION TEACHER): Last LDL 26. Continue crestor, zetia Assessment & Plan (01/08/2024 3:20 PM CDT): Chronic. Tolerates combination of rosuvastatin and ezetimibe. Check cholesterol level and adjust medications if needed Assessment & Plan (07/09/2023 5:06 PM TECHNICAL COMMUNICATION TEACHER): Chronic. On rosuvastatin and Zetia. LDL goal less than 70 Chronic. On ezetimibe and rosuvastatin 40 mg daily. Target LDL goal less than 70. Hypertension 02/13/2017 Assessment & Plan (08/15/2024 1:30 PM TECHNICAL COMMUNICATION TEACHER): BP stable today. Continue lisinopril, HCTZ, lasix, carvedilol. Has white coat hypertension. This morning's BP was good at home 127/71. Asked her to send us home blood pressures via [employer]. Assessment & Plan (01/08/2024 3:20 PM CDT): Chronic. Elevated in office but has been okay on home readings. She does have a degree of white coat hypertension. We will need to monitor blood pressure closely. Continue lisinopril as well as carvedilol Assessment & Plan (07/09/2023 5:07 PM TECHNICAL COMMUNICATION TEACHER): Chronic. Mildly elevated in office today but reports most home readings are under 140. Has ambulatory blood pressure monitoring cuff that since her readings to her vice president [employer] insights for adjustment. I did encourage that she may want to bring her cuff to 1 of her visits so it can be calibrated to make sure it is still accurate Sleep apnea, obstructive 02/13/2017 Assessment & Plan (08/15/2024 1:34 PM TECHNICAL COMMUNICATION TEACHER): Chronic. Wears cpap. Managed by sleep management. -at [place] Assessment & Plan (01/08/2024 3:20 PM CDT): Chronic. Continue CPAP. Patient would like to see a new sleep medicine doctor for further evaluation. Referral provided Assessment & Plan (07/08/2023 6:37 PM TECHNICAL COMMUNICATION TEACHER): Chronic. Follows with sleep Medicine. Continue care per specialist Type 2 diabetes mellitus without complications 0 02/13/2017 Assessment & Plan (08/15/2024 12:21 PM TECHNICAL COMMUNICATION TEACHER): Labs ordered to recheck. Last A1c 7.0. continue metformin Assessment & Plan (01/08/2024 3:20 PM CDT): Chronic. Controlled. Check and adjust medication if needed. Continue metformin. Could consider addition of SGLT2 or GLP 1 medication for added health benefits if needed Assessment & Plan (07/09/2023 5:07 PM TECHNICAL COMMUNICATION TEACHER): Chronic. Diabetes is controlled on A1c. Continue [...] 07/09/202312/20 Assessment & Plan (07/09/2023 5:09 PM TECHNICAL COMMUNICATION TEACHER): Patient notes at times she feels slightly dizzy or unstable. She has difficulty characterizing. She denies sensation of near-syncope. She additionally denies vertiginous symptoms. She is unable to really describe what she feels. We will monitor for now. Advised if it worsens or she develops more significant symptoms to let me know. 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 On first injection of the cath procedure, an ascending aortic dissection was caused. She was transferred to [facility] for emergent surgical intervention. Labs normal Last dose of plavix on 03/30 Type and cross 6u pRBCs/plts/FFP Planning for emergent type A dissection repair and 1V CABG to RCA with VG conduit. Dr. Patel explained the surgery in extent and consents obtained. Coronary artery disease, occlusive 03/31/2022 09/03/2022 Abnormal mammogram of left breast 03/25/2019 09/03/2022
--- OUTSIDE RECORDS SUMMARY | 2025-01-08 13:12 | XMS_ITS | Referral Summary ---
Author Organization [facility] Address [address] [place] [id number] Care Team Providers Care Joiner Apprentice Name Role Phone Robby Dia MD Unavailable Giana Torres MD Unavailable [phone] Mohit Ralph MD Unavailable Muriel Jimenez NP Unavailable Brock Peraza DO Unavailable [phone] Sydnee Sorensen NP Primary Care Provider [phone] Renae Brady Unavailable Encounters Date Type Department Care Team Description 12/27/2024 Orders Only [facility] Primary Care at [address] [address] Sydnee Sorensen NP Post-menopausal 12/02/2024 1:30 PM CDT Office Visit [facility] Cardiology at [address] [place] [address] Mohit Ralph MD Coronary artery disease involving sycuan coronary artery of sycuan heart without angina pectoris (Primary Dx); Primary hypertension; Hyperlipidemia, unspecified hyperlipidemia type; Paroxysmal atrial fibrillation (HCC); Sleep apnea, obstructive 11/16/2024 Telephone [facility] Primary Care at [address] [address] Sydnee Sorensen NP Medical Question/Miscellaneous from Last 3 Months Allergies Active Allergy Reactions Criticality Noted Date Comments Clindamycin Rash Medium 03/25/2019 Penicillins Swelling,Rash Medium 03/25/2019 Childhood allergy Medications aspirin 81 mg chewable tablet Take 1 tablet (81 mg total) by mouth daily 30 tablet 04/07/20 22 025 Active hydroCHLOROthiazi de (HYDRODIURIL) 25 mg tablet Take 1 tablet (25 mg total) by mouth every morning 90 tablet 3 10/09/19 24 Active carvediloL (COREG) 6.25 mg tablet Take 1 tablet (6.25 mg total) by mouth 2 (two) times a day with meals 180 tablet 3 12/01/19 24 026 Active rosuvastatin (CRESTOR) 40 mg tablet Take 1 tablet (40 mg total) by mouth nightly 90 tablet 3 12/01/19 24 Active blood-glucose meter kitIndications:Ty pe 2 diabetes mellitus without complication, without long-term current use of insulin (HCC) 1 each daily 1 kit 1 01/08/20 Active lancets miscIndications:E 11.9, A1c 6.4 on 07/09/23, not on insulin 1 each by other route as directed 100 each 11 01/11/20 24 Active blood glucose diagnostic (Freestyle InsuLinx Test Strips) stripIndications: Type 2 diabetes mellitus without complications (HCC),Type 2 diabetes mellitus without complication, without long-term current use of insulin (HCC) USE TO TEST BLOOD SUGAR ONCE DAILY 100 strip 3 04/20/20 24 Active furosemide (LASIX) 20 mg tabletIndications :Bilateral lower extremity edema TAKE 1 TABLET (20 MG TOTAL) BY MOUTH DAILY NEEDED (SWELLING). 90 tablet 2 09/30/19 25 Active magnesium oxide 400 mg magnesium tablet Take 400 mg by mouth 2 (two) times a day 180 tablet 1 10/11/19 25 Active semaglutide (Rybelsus) 7 mg tabletIndications :type 2 diabetes mellitus Take 1 tablet (7 mg total) by mouth daily before breakfast 90 tablet 1 11/08/19 25 Active metFORMIN XR (GLUCOPHAGE XR) 500 mg 24 hr tablet Take 2 tablets (1,000 mg total) by mouth daily with breakfast 180 tablet 3 11/08/19 25 026 Active lisinopriL (PRINIVIL,ZESTRIL ) 40 mg tablet Take 1 tablet (40 mg total) by mouth every morning 100 tablet 1 11/02/19 25 Active ergocalciferol (VITAMIN D) 50,000 unit capsuleIndication s:Malignant neoplasm of upper-inner quadrant of left breast in female, estrogen receptor positive (HCC),Malignant neoplasm of upper-outer quadrant of left breast in female, estrogen receptor positive (HCC),Ductal carcinoma in situ (DCIS) of left breast,Vitamin D deficiency,longterm (current) use of aromatase inhibitors Take 1 capsule (50,000 Units total) by mouth once a week 12 capsule 11/08/19 25 025 Active ezetimibe (ZETIA) 10 mg tablet TAKE 1 TABLET DAILY 90 tablet 3 12/27/19 25 Active ezetimibe (ZETIA) 10 mg tablet Take 1 tablet (10 mg total) by mouth daily 90 tablet 3 12/01/19 24 025 Discontinued Active Problems Problem Noted Date Diagnosed Date Bilateral lower extremity edema 05/27/2024 OAB (overactive bladder) 07/09/2023 Assessment & Plan (07/09/2023 5:10 PM SHEET METAL LAYOUT WORKER): Chronic issue. Has more issues with nocturia [...] 01/07/2023 Assessment & Plan (08/15/2024 12:26 PM SHEET METAL LAYOUT WORKER): Last vit D 28. Continue supplementation Assessment & Plan (01/08/2024 3:21 PM CDT): Chronic. Check and replete as needed Carpal tunnel syndrome, bilateral 01/07/2023 Assessment & Plan (01/08/2024 3:28 PM CDT): Chronic. Mild nighttime symptoms. Consider use of wrist splints Assessment & Plan (07/09/2023 5:08 PM SHEET METAL LAYOUT WORKER): Encouraged use of wrist splints with repetitive activity at night. No signs of thenar atrophy. Offered EMG nerve conduction studies to confirm diagnosis but patient defers. She will continue to monitor hand symptoms Class 3 severe obesity due t o excess calories with serious comorbidity and body mass index (BMI) of 45.0 to 49.9 in adult 09/03/2022 Assessment & Plan (08/15/2024 12:22 PM SHEET METAL LAYOUT WORKER): BMI Follow-up includes: nutrition counseling and exercise counseling. Assessment & Plan (01/08/2024 3:21 PM CDT): Chronic. Suboptimally controlled and needs improvement. Counseled patient on regular exercise. Consider chair aerobics and low-impact activities. She was encouraged to work on diet and weight loss. Monitor Assessment & Plan (07/09/2023 5:08 PM SHEET METAL LAYOUT WORKER): Chronic. Suboptimally controlled. Needs significant improvement. Counseled [...] concerns). Assessment & Plan (08/15/2024 1:33 PM SHEET METAL LAYOUT WORKER): Due for repeat scan in May 2025. Managed by cardiothoracic surgery, Dr. Patel. Currently on carvedilol, lisinopril Assessment & Plan (01/08/2024 3:28 PM CDT): Remote history of dissection of the aorta.. Treated nonoperatively and has resolved. She follows with Cardiothoracic specialists yearly Assessment & Plan (07/08/2023 6:37 PM SHEET METAL LAYOUT WORKER): Chronic. Follows with cardiology/cardiothoracic surgery. Has CT angiogram completed a couple of months ago which shows that it was stable. They are just monitoring in recommending management of blood pressure. She will see him back in 1 year CAD (coronary artery disease) 03/10/2022 Overview (03/10/2022): Added automatically from request for surgery [id number] Assessment & Plan (08/15/2024 12:31 PM SHEET METAL LAYOUT WORKER): Continue crestor and zetia, aspirin, Managed by [...] Monitor Assessment & Plan (07/09/2023 5:06 PM SHEET METAL LAYOUT WORKER): Chronic. Denies chest pain. Continue risk factor modification. On ASA, high- intensity statin in, Zetia. Continue care per cardiology work on blood pressure control History of breast cancer 04/26/2019 Malignant neoplasm of upper- inner quadrant of left breast in female, estrogen receptor positive 04/22/2019 Assessment & Plan (08/15/2024 1:36 PM SHEET METAL LAYOUT WORKER): History of. Managed by oncology . Sees oncology 3/4- 5 years post treatment. Finished anastrozole tx. Assessment & Plan (01/08/2024 3:21 PM CDT): Chronic. Continue routine monitoring with Oncology. Continue Arimidex. No signs of recurrence Assessment & Plan (07/08/2023 6:37 PM SHEET METAL LAYOUT WORKER): Chronic. Follows with Oncology. Remains on Arimidex. Doing well Osteopenia 12/20/2018 Assessment & Plan (08/15/2024 12:34 PM SHEET METAL LAYOUT WORKER): Continue vit D supplementation. BMD ordered Assessment & Plan (01/08/2024 3:21 PM CDT): Reported remote diagnosis. She is past due for updated bone density. Ordered Atrial fibrillation 12/03/2018 Assessment & Plan (08/15/2024 12:31 PM SHEET METAL LAYOUT WORKER): Sees cardio 12/02 Cardio is requesting records from [facility] to hopefully help explain why she is not on anticoagulant given her CHADS-VASc score of 6 and history of atrial fibrillation. Due to mild bilateral lower extremity edema continue furosemide 20 mg daily p.r.n. edema Continue aspirin. Assessment & Plan (01/08/2024 3:19 PM CDT): Chronic. Controlled. Patient recently changed money counter from [facility] to [facility]iology. Cardiology at [facility] previously deferred NOAC but for unknown reason. She remains on aspirin. I see no contraindication from my standpoint to considering NOAC if her new money counter feels it would be recommended. However, if patient does start having issues with increasing falls then we may need to stay with an aspirin. She has slight increased fall risk based on her STEADI score Assessment & Plan (07/09/2023 5:06 PM SHEET METAL LAYOUT WORKER): Continue medication care per Cardiology. Denies any recent palpitations. Remains on ASA. Not currently on NOAC Hyperlipidemia 02/13/2017 Assessment & Plan (08/15/2024 12:21 PM SHEET METAL LAYOUT WORKER): Last LDL 26. Continue crestor, zetia Assessment & Plan (01/08/2024 3:20 PM CDT): Chronic. Tolerates combination of rosuvastatin and ezetimibe. Check cholesterol level and adjust medications if needed Assessment & Plan (07/09/2023 5:06 PM SHEET METAL LAYOUT WORKER): Chronic. On rosuvastatin and Zetia. LDL goal less than 70 Chronic. On ezetimibe and rosuvastatin 40 mg daily. Target LDL goal less than 70. Hypertension 02/13/2017 Assessment & Plan (08/15/2024 1:30 PM SHEET METAL LAYOUT WORKER): BP stable today. Continue lisinopril, HCTZ, lasix, carvedilol. Has white coat hypertension. This morning's BP was good at home 127/71. Asked her to send us home blood pressures via [facility]. Assessment & Plan (01/08/2024 3:20 PM CDT): Chronic. Elevated in office but has been okay on home readings. She does have a degree of white coat hypertension. We will need to monitor blood pressure closely. Continue lisinopril as well as carvedilol Assessment & Plan (07/09/2023 5:07 PM SHEET METAL LAYOUT WORKER): Chronic. Mildly elevated in office today but reports most home readings are under 140. Has ambulatory blood pressure monitoring cuff that since her readings to her money counter for adjustment. I did encourage that she may want to bring her cuff to 1 of her visits so it can be calibrated to make sure it is still accurate Sleep apnea, obstructive 02/13/2017 Assessment & Plan (08/15/2024 1:34 PM SHEET METAL LAYOUT WORKER): Chronic. Wears cpap. Managed by sleep management. -at Issue Assessment & Plan (01/08/2024 3:20 PM CDT): Chronic. Continue CPAP. Patient would like to see a new sleep medicine doctor for further evaluation. Referral provided Assessment & Plan (07/08/2023 6:37 PM SHEET METAL LAYOUT WORKER): Chronic. Follows with sleep Medicine. Continue care per specialist Type 2 diabetes mellitus without complications 0 02/13/2017 Assessment & Plan (08/15/2024 12:21 PM SHEET METAL LAYOUT WORKER): Labs ordered to recheck. Last A1c 7.0. continue metformin Assessment & Plan (01/08/2024 3:20 PM CDT): Chronic. Controlled. Check and adjust medication if needed. Continue metformin. Could consider addition of SGLT2 or GLP 1 medication for added health benefits if needed Assessment & Plan (07/09/2023 5:07 PM SHEET METAL LAYOUT WORKER): Chronic. Diabetes is controlled on A1c. Continue [...] 07/09/202312/20 Assessment & Plan (07/09/2023 5:09 PM SHEET METAL LAYOUT WORKER): Patient notes at times she feels slightly dizzy or unstable. She has difficulty characterizing. She denies sensation of near-syncope. She additionally denies vertiginous symptoms. She is unable to really describe what she feels. We will monitor for now. Advised if it worsens or she develops more significant symptoms to let me know. Patient was offered therapy script but she defers for now longterm current use of amiodarone 09/03/2022 07/17/2023 Overview [...] significant RCA disease who initially admitted to [facility] today for a LHC/RCA PCI as with recent angina symptoms. On first injection of the cath procedure, an ascending aortic dissection was caused. She was transferred to [facility] for emergent surgical intervention. Labs normal [...] ed: Patient Refused),06/22/2023(Deferred: Patient Refused),06/22/2022(Deferred: Patient Refused),03/19/2021 GrexIt SARS-CoV-2 Monovalent Vaccination (12+ Yrs) PURPLE 04/09/2021,09/03/2020,08/13/2020 [...] often do you attend chur ch or congregational services? Never 02/21/2022 Do you belong to any clubs o r organizations such as synagogue groups, unions, fraternal or athletic groups, or [...] medical appointments or from getting medications? No 09/0 07/2021 In the past 12 months, has [...] place to sleep or slept in a group home (including now)? 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 Not on file Not on file Not on file Last Filed Vital Signs Vital Sign Reading Time Taken Comments Blood Pressure 126/70 12/02/2024 1:20 PM CDT Pulse 65 12/02/2024 1:20 PM CDT Temperature 36.6 C (97.8 F) 08/15/2024 1:02 PM SHEET METAL LAYOUT WORKER Respiratory Rate 18 08/15/2024 1:02 PM SHEET METAL LAYOUT WORKER Oxygen Saturation 98% 12/02/2024 1:20 PM CDT Inhaled Oxygen Concentration - - Weight 114.3 kg (252 lb) 12/02/2024 1:20 PM CDT Height 157.5 cm (5' 2) 12/02/2024 1:20 PM CDT Body Mass Index 46.09 12/02/2024 1:20 PM CDT Plan of Treatment Not on file Procedures Procedure Name Priority Date/Time Associated Diagnosis Comments DEXA AXIAL SKELETON BONE DENSITY 1 OR MORE SITES Schedule Routine, Read Routine (OP Routine) 12/03/2024 9:09 AM CDT Post-menopausal SCREENING MAMMOGRAM BILATERAL W OBI Schedule Routine, Read Routine (OP Routine) 08/23/2024 11:09 AM SHEET METAL LAYOUT WORKER Malignant neoplasm of upper-inner quadrant of left breast in female, estrogen receptor positive (HCC) Encounter for screening mammogram for malignant neoplasm of breast HEMOGLOBIN A1C Routine 08/15/2024 2:01 PM SHEET METAL LAYOUT WORKER Type 2 diabetes mellitus without complication, without long-term current use of insulin (HCC) LIPID PANEL Routine 08/15/2024 2:01 PM SHEET METAL LAYOUT WORKER Hyperlipidemia associated with type 2 diabetes mellitus (HCC) ALBUMIN CREATININE RATIO, URINE Routine 08/15/2024 2:01 PM SHEET METAL LAYOUT WORKER Type 2 diabetes mellitus without complication, without long-term current use of insulin (HCC) EGFR Routine 08/02/2024 2:50 PM SHEET METAL LAYOUT WORKER Malignant neoplasm of upper-inner quadrant of left breast in female, estrogen receptor positive (HCC) Ductal carcinoma in situ (DCIS) of left breast HEPATITIS C ANTIBODY Routine 09/03/2022 3:52 PM CDT Encounter for hepatitis C screening test for low risk patient from Last 3 Months or Most Recently Relevant to Health Maintenance Results * Dexa Axial Skeleton Bone Density 1 or 2 Site (12/03/2024 9:09 AM CDT) Anatomical Region Laterality Modality Body N/A Radiographic Brittny ging Sydnee Sorensen NP IMG DXA PROCEDURES Final Resu lt * Screening Mammogram Bilateral W Obi (08/23/2024 11:09 AM SHEET METAL LAYOUT WORKER) Anatomical Region Laterality Modality Breast Bilateral Mammography Narrative 08/24/2024 9:11 AM SHEET METAL LAYOUT WORKER Mammogram Technique: Bilateral Digital Breast Tomosynthesis, Bilateral C-view 2D Screening mammogram. Views obtained: bilateral craniocaudal and bilateral mediolateral oblique. Computer Aided Detection was performed. Mammogram Findings: The present examination has been compared to prior imaging studies performed at [facility] on 06/28/2021, 07/04/2022 and 08/18/2023. The breasts [...] compared to prior imaging studies performed at [facility] on 06/28/2021, 07/04/2022 and 08/18/2023. The breasts [...] Albumin Creatinine Ratio, Urine (08/15/2024 2:01 PM SHEET METAL LAYOUT WORKER) Pathologist [facility] Albumin Ur 17.5 mg/L Comment: Interpretive Data No reference range established. Current interpretive data was last revised 2018. Creatinine Ur 63.2 mg/dL [facility] Comment: Interpretive Data No reference range established. Current interpretive data was last revised 2018. Albumin Creatinine Ratio, Ur 28 1 - 29 mg/g [facility] Urine 08/15/2024 2:01 PM SHEET METAL LAYOUT WORKER 08/15/2024 10:06 PM SHEET METAL LAYOUT WORKER Sydnee Sorensen NP LAB URINE ORDERABLES Final Re sult [facility] [address] Department [place] [address] * (ABNORMAL) Hemoglobin A1c (08/15/2024 2:01 PM SHEET METAL LAYOUT WORKER) Pathologist [facility] Hgb A1C 7.2(H) 4.0 - 5.6 % Estimated Average Glucose 160 mg/dL [facility] Comment: The ADA recommends reporting an estimated Average Glucose (eAG) with all Hemoglobin A1c results using the equation derived from a study of 507 normal and diabetic adults. Minority populations were underrepresented and children were not included. (Diabetes Care 31:2582-6424, 2008). The eAG is not equivalent to a fasting glucose. Blood 08/15/2024 2:01 PM SHEET METAL LAYOUT WORKER 08/15/2024 10:06 PM SHEET METAL LAYOUT WORKER Sydnee Sorensen NP LAB BLOOD ORDERABLES Final Re sult [facility] [address] Department [place] [address] * (ABNORMAL) Lipid panel (08/15/2024 2:01 PM SHEET METAL LAYOUT WORKER) Cholesterol 90 30 - 199 mg/dL Comment: [...] NCEP Expert Panel. Circulation 2004;110:227 3. German M et al. RACQUEL Cardiol. 2020 October 20;5(5):540-548. doi: [...] ratio 2 [facility] Blood 08/15/2024 2:01 PM SHEET METAL LAYOUT WORKER 08/15/2024 10:06 PM SHEET METAL LAYOUT WORKER Sydnee Sorensne CHIEF LIBRARIAN WORK WITH BLIND LAB BLOOD ORDERABLES Final Re sult [facility] [address] Department [place] [address] * eGFR (08/02/2024 2:50 PM SHEET METAL LAYOUT WORKER) eGFR 75 >=60 mL/min/1. 73 m2 Comment: [...] was last reviewed 2021. Testing performed by: [facility], [address] [place] [address]., [id number] Blood 08/02/2024 2:50 PM SHEET METAL LAYOUT WORKER 08/02/2024 2:53 PM SHEET METAL LAYOUT WORKER Kimberli Vasquez CHIEF LIBRARIAN WORK WITH BLIND LAB BLOOD ORDERABLES Final Result [facility] [address] [facility] Department of Laboratories [place], [place] [id number] * Hepatitis C antibody (09/03/2022 3:52 PM [...] MICROBIOLOGY - GEN ERAL ORDERABLES Final Result [facility] [id number] Department of Laboratories [place], [place] [id number] from Last 3 Months or Most Recently Relevant to Health Maintenance Insurance MEDICARE [facility] MEDICARE SUPPLEMENT MEDICARE [facility] MEDICARE SUPPLEMENT MEDICARE Advance Directives For more information, please contact: [phone] * Full Code (Latest Code Status on File) Date Activated Date Inactivated Comments 03/31/2022 2:48 PM 04/06/2022 6:57 PM Care Teams Joiner Apprentice Relationship Specialty Start Date End Date Sydnee Sorensen NP [address] [facility] [[email or web address] [address] [place] [address] PCP - General Family Medicine 2/11/25 [place] [address] [address] Consulting Physician Cardiology 09/03/22 Giana Torres MD [address] [place] [address] [address] [place] [address] Referring Physician Cardiology 01/08/24 Mohit Ralph MD [address] [facility] [[email or web address]] [address], [address] [id number] Consulting Physician Cardiology 01/08/24 Muriel Jimenez NP [address] [facility] [address] [place] [id number] [address], [address] [address] Nurse Practitioner 01/08/24 Brock Peraza DO [address] [place] [address] MEDICAL ONCOLOGY, [address] [address] Medical Oncologist/Sql Report Developer Hematology and Oncology 08/02/24 Renae Brady PA [address] [address] Physician Quill Cleaner 08/15/24
--- OUTSIDE RECORDS SUMMARY | 2025-01-08 13:12 | XMS_ITS | Clinical Summary ---
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 Has more issues with nocturia [...] 01/07/2023 Assessment & Plan (08/15/2024 12:26 PM INSULATION HOSEMAN): Last vit D 28. Continue supplementation Assessment & Plan (01/08/2024 3:21 PM CDT): Chronic. Check and replete as needed Carpal tunnel syndrome, bilateral 01/07/2023 Assessment & Plan (01/08/2024 3:28 PM CDT): Chronic. Mild nighttime symptoms. Consider use of wrist splints Assessment & Plan (07/09/2023 5:08 PM INSULATION HOSEMAN): Encouraged use of wrist splints with repetitive activity at night. No signs of thenar atrophy. Offered EMG nerve conduction studies to confirm diagnosis but patient defers. She will continue to monitor hand symptoms Class 3 severe obesity due t o excess calories with serious comorbidity and body mass index (BMI) of 45.0 to 49.9 in adult 09/03/2022 Assessment & Plan (08/15/2024 12:22 PM INSULATION HOSEMAN): BMI Follow-up includes: nutrition counseling and exercise counseling. Assessment & Plan (01/08/2024 3:21 PM CDT): Chronic. Suboptimally controlled and needs improvement. Counseled patient on regular exercise. Consider chair aerobics and low-impact activities. She was encouraged to work on diet and weight loss. Monitor Assessment & Plan (07/09/2023 5:08 PM INSULATION HOSEMAN): Chronic. Suboptimally controlled. Needs significant improvement. Counseled [...] concerns). Assessment & Plan (08/15/2024 1:33 PM INSULATION HOSEMAN): Due for repeat scan in May 2025. Managed by cardiothoracic surgery, Dr. Patel. Currently on carvedilol, lisinopril Assessment & Plan (01/08/2024 3:28 PM CDT): Remote history of dissection of the aorta.. Treated nonoperatively and has resolved. She follows with Cardiothoracic specialists yearly Assessment & Plan (07/08/2023 6:37 PM INSULATION HOSEMAN): Chronic. Follows with cardiology/cardiothoracic surgery. Has CT angiogram completed a couple of months ago which shows that it was stable. They are just monitoring in recommending management of blood pressure. She will see him back in 1 year CAD (coronary artery disease) 03/10/2022 Overview (03/10/2022): Added automatically from request for surgery [id number] Assessment & Plan (08/15/2024 12:31 PM INSULATION HOSEMAN): Continue crestor and zetia, aspirin, Managed by [...] Monitor Assessment & Plan (07/09/2023 5:06 PM INSULATION HOSEMAN): Chronic. Denies chest pain. Continue risk factor modification. On ASA, high- intensity statin in, Zetia. Continue care per cardiology work on blood pressure control History of breast cancer 04/26/2019 Malignant neoplasm of upper- inner quadrant of left breast in female, estrogen receptor positive 04/22/2019 Assessment & Plan (08/15/2024 1:36 PM INSULATION HOSEMAN): History of. Managed by oncology . Sees oncology 3/4- 5 years post treatment. Finished anastrozole tx. Assessment & Plan (01/08/2024 3:21 PM CDT): Chronic. Continue routine monitoring with Oncology. Continue Arimidex. No signs of recurrence Assessment & Plan (07/08/2023 6:37 PM INSULATION HOSEMAN): Chronic. Follows with Oncology. Remains on Arimidex. Doing well Osteopenia 12/20/2018 Assessment & Plan (08/15/2024 12:34 PM INSULATION HOSEMAN): Continue vit D supplementation. BMD ordered Assessment & Plan (01/08/2024 3:21 PM CDT): Reported remote diagnosis. She is past due for updated bone density. Ordered Atrial fibrillation 12/03/2018 Assessment & Plan (08/15/2024 12:31 PM INSULATION HOSEMAN): Sees cardio 12/02 Cardio is requesting records from [facility] to hopefully help explain why she is not on anticoagulant given her CHADS-VASc score of 6 and history of atrial fibrillation. Due to mild bilateral lower extremity edema continue furosemide 20 mg daily p.r.n. edema Continue aspirin. Assessment & Plan (01/08/2024 3:19 PM CDT): Chronic. Controlled. 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 Cardiology at [facility] previously deferred NOAC but for unknown reason. She remains on aspirin. I see no contraindication from my standpoint to considering NOAC if her new hotel baggage handler feels it would be recommended. However, if patient does start having issues with increasing falls then we may need to stay with an aspirin. She has slight increased fall risk based on her STEADI score Assessment & Plan (07/09/2023 5:06 PM INSULATION HOSEMAN): Continue medication care per Cardiology. Denies any recent palpitations. Remains on ASA. Not currently on NOAC Hyperlipidemia 02/13/2017 Assessment & Plan (08/15/2024 12:21 PM INSULATION HOSEMAN): Last LDL 26. Continue crestor, zetia Assessment & Plan (01/08/2024 3:20 PM CDT): Chronic. Tolerates combination of rosuvastatin and ezetimibe. Check cholesterol level and adjust medications if needed Assessment & Plan (07/09/2023 5:06 PM INSULATION HOSEMAN): Chronic. On rosuvastatin and Zetia. LDL goal less than 70 Chronic. On ezetimibe and rosuvastatin 40 mg daily. Target LDL goal less than 70. Hypertension 02/13/2017 Assessment & Plan (08/15/2024 1:30 PM INSULATION HOSEMAN): BP stable today. Continue lisinopril, HCTZ, lasix, carvedilol. Has white coat hypertension. This morning's BP was good at home 127/71. Asked her to send us home blood pressures via [employer]. Assessment & Plan (01/08/2024 3:20 PM CDT): Chronic. Elevated in office but has been okay on home readings. She does have a degree of white coat hypertension. We will need to monitor blood pressure closely. Continue lisinopril as well as carvedilol Assessment & Plan (07/09/2023 5:07 PM INSULATION HOSEMAN): Chronic. Mildly elevated in office today but reports most home readings are under 140. Has ambulatory blood pressure monitoring cuff that since her readings to her hotel baggage handler for adjustment. I did encourage that she may want to bring her cuff to 1 of her visits so it can be calibrated to make sure it is still accurate Sleep apnea, obstructive 02/13/2017 Assessment & Plan (08/15/2024 1:34 PM INSULATION HOSEMAN): Chronic. Wears cpap. Managed by sleep management. -at [place] Assessment & Plan (01/08/2024 3:20 PM CDT): Chronic. Continue CPAP. Patient would like to see a new sleep medicine doctor for further evaluation. Referral provided Assessment & Plan (07/08/2023 6:37 PM INSULATION HOSEMAN): Chronic. Follows with sleep Medicine. Continue care per specialist Type 2 diabetes mellitus without complications 0 02/13/2017 Assessment & Plan (08/15/2024 12:21 PM INSULATION HOSEMAN): Labs ordered to recheck. Last A1c 7.0. continue metformin Assessment & Plan (01/08/2024 3:20 PM CDT): Chronic. Controlled. Check and adjust medication if needed. Continue metformin. Could consider addition of SGLT2 or GLP 1 medication for added health benefits if needed Assessment & Plan (07/09/2023 5:07 PM INSULATION HOSEMAN): Chronic. Diabetes is controlled on A1c. Continue [...] 07/09/202312/20 Assessment & Plan (07/09/2023 5:09 PM INSULATION HOSEMAN): Patient notes at times she feels slightly dizzy or unstable. She has difficulty characterizing. She denies sensation of near-syncope. She additionally denies vertiginous symptoms. She is unable to really describe what she feels. We will monitor for now. Advised if it worsens or she develops more significant symptoms to let me know. Patient was offered therapy script but she defers for now terminal make up operator current use of amiodarone 09/03/2022 07/17/2023 Overview [...] significant RCA disease who initially admitted to [facility] today for a LHC/RCA PCI as with recent angina symptoms. On first injection of the cath procedure, an ascending aortic dissection was caused. She was transferred to [facility] for emergent surgical intervention. Labs normal Last [...] Department Care Team Description 12/27/2024 Orders Only [facility] Care at [address] [address] Sydnee Sorensen NP Post-menopausal 12/02/2024 1:30 PM CDT Office Visit [facility] Cardiology at [address] [place] [address] Mohit Ralph MD Coronary artery disease involving [place] coronary artery of [place] heart without angina pectoris (Primary Dx); Primary hypertension; Hyperlipidemia, unspecified hyperlipidemia type; Paroxysmal atrial fibrillation (HCC); Sleep apnea, obstructive 11/16/2024 Telephone [facility] Primary Care at [address] [address] Sydnee Sorensen NP Medical Question/Miscellaneous from Last 3 Months Immunizations Immunization Administration Dates Next Due Influenza, Quadrivalent, Hig h Dose, Preservative Free, Intrr 04/06/2022,03/19/2021,03/17/2020 Influenza, Quadrivalent, Spl it, Intramuscular 04/10/2022,03/17/2020 Influenza, Trivalent, High D ose, Split, Preservative Free, Intramuscular 05/10/2024,06/23/2019,06/07/2018,05/27,04/03/2015 Influenza, Trivalent, Preser vative Free, Intramuscular 05/31/2013 Influenza, Unspecified 06/22/2023(Deferr ed: Patient Refused),06/22/2023(Deferred: Patient Refused),06/22/2022(Deferred: Patient Refused),03/19/2021 [employer] SARS-CoV-2 Monovalent Vaccination (12+ Yrs) PURPLE 04/09/2021,09/03/2020,08/13/2020 Pneumococcal Conjugate PCV 13 12/20/2018 Pneumococcal Polysaccharide PPV23 07/05/2014 Tdap 01/14/2024,03/09/2012 ZOSTER Recombinant 01/14/2024 Surgical History Surgery Date Site/Laterality Comments HYSTERECTOMY CHOLECYSTECTOMY HERNIA REPAIR 06/22/2013 - 06/21/2014 BREAST BIOPSY 03/25/2019 Left TONSILLECTOMY as a child COLONOSCOPY 06/22/2018 - 06/21/2019 ANGIOPLASTY 02/20/22, 03/31/22 Medical History Medical History Date Comments Hypertension Type 2 diabetes mellitus (HCC) Sleep apnea 2016 pt aware to ned an in on [...] 02/21/2022 How often do you attend chur or catholic services? Never 02/21/2022 Do you belong to any clubs o r organizations such as rastafari groups, unions, fraternal or athletic groups, or [...] place to sleep or slept in a assisted (including now)? 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 on file Not on file Not on file Obstetrics History Last Filed Vital Signs Vital Sign Reading Time Taken Comments Blood Pressure 126/70 12/02/2024 1:20 PM CDT Pulse 65 12/02/2024 1:20 PM CDT Temperature 36.6 C (97.8 F) 08/15/2024 1:02 PM INSULATION HOSEMAN Respiratory Rate 18 08/15/2024 1:02 PM INSULATION HOSEMAN Oxygen Saturation 98% 12/02/2024 1:20 PM CDT Inhaled Oxygen Concentration - - Weight 114.3 kg (252 lb) 12/02/2024 1:20 PM CDT Height 157.5 cm (5' 2) 12/02/2024 1:20 PM CDT Body Mass Index 46.09 12/02/2024 1:20 PM CDT Plan of Treatment Health Maintenance Due Date Last Done Comments Dilated Eye Exam 1945 Zoster Vaccine (2 of 2) 03/10/2024 01/14/2024 Covid-19 Vaccine (2023-2 5 season) 2024 05/10/2024, 04/30/2022, 04/09/2021, Additional history exists Depression Screening 01/07/2025 01/08/2024, 09/04/19 Fall Risk Assessment 01/07/2025 01/08/2024, 09/03/2022, 04/06/2022 Foot Exam 01/07/2025 01/08/2024, 12/20, 01/07/2023 Well Visit 65+ 01/07/2025 01/08/2024, 04/14/2022 Hemoglobin A1C 02/12/2025 08/15/2024, 12/21, 07/09/2023, Additional history exists Influenza Vaccine (#1) 2025 , 04/10/2022, 04/06/2022, Additional history exists eGFR 08/02/2025 08/02/2024, 12/21, 08/04/2023, Additional history exists Albumin Creatinine Ratio, Urine 08/15/2025 08/15/2024, 01/16/2024, 01/07/2023 Lipid Panel 08/15/2025 08/15/2024, 12/21, 08/02/2022, Additional history exists Breast Cancer Screening-Mammogram 08/23/2025 08/23/2024, 08/18/2023, 07/04/2022, Additional history exists Osteoporosis Screening-Bone Density Scan 12/03/2026 12/03/2024 DTaP/Tdap/Td Vaccine (3 - Td or Tdap) 01/13/2034 01/14/2024, 03/09/2012 Pneumococcal vaccine 65+ Completed 12/20/2018, 06/22 Hepatitis C Screening Completed 09/03/2022 Hepatitis B Screening Completed 08/15/2024 Procedures Procedure Name Priority Date/Time Associated Diagnosis Comments DEXA AXIAL SKELETON BONE DENSITY 1 OR MORE SITES Schedule Routine, Read Routine (OP Routine) 12/03/2024 9:09 AM CDT Post-menopausal SCREENING MAMMOGRAM BILATERAL W OBI Schedule Routine, Read Routine (OP Routine) 08/23/2024 11:09 AM INSULATION HOSEMAN Malignant neoplasm of upper-inner quadrant of left breast in female, estrogen receptor positive (HCC) Encounter for screening mammogram for malignant neoplasm of breast HEMOGLOBIN A1C Routine 08/15/2024 2:01 PM INSULATION HOSEMAN Type 2 diabetes mellitus without complication, without long-term current use of insulin (HCC) LIPID PANEL Routine 08/15/2024 2:01 PM INSULATION HOSEMAN Hyperlipidemia associated with type 2 diabetes mellitus (HCC) ALBUMIN CREATININE RATIO, URINE Routine 08/15/2024 2:01 PM INSULATION HOSEMAN Type 2 diabetes mellitus without complication, without long-term current use of insulin (HCC) EGFR Routine 08/02/2024 2:50 PM INSULATION HOSEMAN Malignant neoplasm of upper-inner quadrant of left [...] Mammogram Bilateral W Obi (08/23/2024 11:09 AM INSULATION HOSEMAN) Anatomical Region Laterality Modality Breast Bilateral Mammography Narrative 08/24/2024 9:11 AM INSULATION HOSEMAN Mammogram Technique: Bilateral Digital Breast Tomosynthesis, Bilateral C-view 2D Screening mammogram. Views obtained: bilateral craniocaudal and bilateral mediolateral oblique. Computer Aided Detection was performed. Mammogram Findings: The present examination has been compared to prior imaging studies performed at [facility] on 06/28/2021, 07/04/2022 and 08/18/2023. The breasts [...] compared to prior imaging studies performed at [facility] on 06/28/2021, 07/04/2022 and 08/18/2023. The breasts [...] Albumin Creatinine Ratio, Urine (08/15/2024 2:01 PM INSULATION HOSEMAN) Albumin Ur 17.5 mg/L Comment: Interpretive Data No reference range established. Current interpretive data was last revised 2018. Creatinine Ur 63.2 mg/dL [facility] Comment: Interpretive Data No reference range established. Current interpretive data was last revised 2018. Albumin Creatinine Ratio, Ur 28 1 - 29 mg/g [facility] Urine 08/15/2024 2:01 PM INSULATION HOSEMAN 08/15/2024 10:06 PM INSULATION HOSEMAN Sydnee Sorensen NP LAB URINE ORDERABLES Final Re sult Performing Organization Address [facility] Co de Phone Number [facility] [address] [place] [address] * (ABNORMAL) Hemoglobin A1c (08/15/2024 2:01 PM INSULATION HOSEMAN) Hgb A1C 7.2(H) 4.0 - 5.6 % Estimated Average Glucose 160 mg/dL [facility] Comment: The ADA recommends reporting an estimated Average Glucose (eAG) with all Hemoglobin A1c results using the equation derived from a study of 507 normal and diabetic adults. Minority populations were underrepresented and children were not included. (Diabetes Care 31:0964-1571, 2008). The eAG is not equivalent to a fasting glucose. Blood 08/15/2024 2:01 PM INSULATION HOSEMAN 08/15/2024 10:06 PM INSULATION HOSEMAN Sydnee Sorensen NP LAB BLOOD ORDERABLES Final Re sult Performing Organization Address [facility] Co de Phone Number [facility] [address] [place] [address] * (ABNORMAL) Lipid panel (08/15/2024 2:01 PM INSULATION HOSEMAN) Cholesterol 90 30 - 199 mg/dL Comment: [...] on 2018. Triglycerides 154(H) <=149 mg/dL [facility] Comment: Interpretive Data Ages < or = [...] on 2018. HDL 38(L) >=40 mg/dL [facility] Comment: Interpretive Data Ages < or = 19 years Acceptable: >45 mg/dL Borderline low: 40-45 mg/dL Low: <40 mg/dL Ages > or = 20 years Desirable: >or= 60 mg/dL Low: <40 mg/dL Literature References: 1. Expert Panel on Integrated Guidelines for Cardiovascular Health and Risk Reduction in Children and Adolescents. Pediatrics 2011;128:S213 2. NCEP Expert Panel. Circulation 2003;110:227 Current Interpretive Data was last revised on 2018. LDL, calculated 26 <=129 mg/dL [facility] Comment: Interpretive Data Ages < or = [...] 2 [facility]EL[facility] Blood 08/15/2024 2:01 PM INSULATION HOSEMAN 08/15/2024 10:06 PM INSULATION HOSEMAN Sydnee Sorensen NP LAB BLOOD ORDERABLES Final Re sult [facility] [address] [place] [address] * eGFR (08/02/2024 2:50 PM INSULATION HOSEMAN) eGFR 75 >=60 mL/min/1. 73 m2 Comment: [...] was last reviewed 2021. Testing performed by: [facility], [address] [place] [address], [place]., [address] Blood 08/02/2024 2:50 PM INSULATION HOSEMAN 08/02/2024 2:53 PM INSULATION HOSEMAN Kimberli Vasquez NP LAB BLOOD ORDERABLES Final Result Performing Organization Address [facility] Co de Phone Number [facility] [address] [facility] Department [place] [address] * Hepatitis C antibody (09/03/2022 3:52 PM CDT) Hep C Ab Nonreactive Nonreactive [facility]EL[facility] Comment: Interpretive Data Nonreactive: Antibodies to HCV [...] ERAL ORDERABLES Final Result Performing Organization Address City/[facility]/ZIP Co de Phone Number [facility] [phone] Department [place] [address] from Last 3 Months or Most Recently Relevant to Health Maintenance Insurance MEDICARE [facility] MEDICARE SUPPLEMENT MEDICARE [facility] MEDICARE SUPPLEMENT MEDICARE Advance Directives For more information, please contact: [phone] * Full Code (Latest Code Status on File) Date Activated Date Inactivated Comments 03/31/2022 2:48 PM 04/06/2022 6:57 PM Care Teams Meat Packer Relationship Specialty Start Date End Date Sydnee Sorensen NP [address] [facility] [address] [place] [address] PCP - General Family Medicine 08/02/24 [place] [address] [address] Consulting Physician Cardiology 09/03/22 Giana Torres MD [address] [place] [address] Referring Physician Cardiology 01/08/24 Mohit Ralph MD [address] [facility] [address], [address] [address] Consulting Physician Cardiology 01/08/24 Muriel Jimenez, CHIP [address] [place] [address], [place] [id number] [place] [address] Nurse Practitioner 01/08/24 Brock Peraza DO [address] [facility], [facility] [address] [place] [address] Medical Oncologist/Agency Owner Hematology and Oncology 08/02/24 Renae Brady PA [address] [facility] [address] [place] [address] Physician Dining Car Waiter/Waitress 08/15/24
--- NOTE | 2025-01-08 13:20 | ED.FALL ---
HPI - Fall General Chief Complaint: Fall Stated Complaint: fall (face/arm injury) [facility] to [facility] daughters for a fall that happened 2 days ago. Patient reports she was walking on a tiered deck, missed a step and fell forward. Patient noted she did hit her head on the left side of her forehead but denies any loss of consciousness. Noted some bruising around left eye with minimal swelling. Denies headache, dizziness, nausea, vomiting, ringing in ears, vision changes- immediately following the fall or any time since then. Patient did note yesterday upon waking having some swelling and bruising to left hand. Patient reports she is able to move this but it is sore. No medication around the knees attempted for symptoms. Denies numbness or tingling in hands or fingers Related Data Home Medications ?Medication ?Instructions ?Recorded ?Confirmed ?Last Taken ?Type ezetimibe 10 mg tablet 10 mg PO DAILY 12/13/21 03/09/24 Unknown History lisinopril 40 mg tablet 40 mg PO DAILY 12/13/21 03/09/24 Unknown History magnesium oxide 400 mg (241.3 mg 400 mg PO DAILY 12/13/21 03/09/24 Unknown History magnesium) tablet metformin 500 mg tablet 500 mg PO DAILY 12/13/21 03/09/24 Unknown History anastrozole 1 mg tablet 1 mg PO DAILY 03/09/24 03/09/24 Unknown History carvedilol 6.25 mg tablet 6.25 mg PO BID 03/09/24 03/09/24 Unknown History hydrochlorothiazide 25 mg tablet 25 mg PO QAM 03/09/24 03/09/24 Unknown History rosuvastatin 40 mg tablet 40 mg PO DAILY 03/09/24 03/09/24 Unknown History Allergies Allergy/AdvReac Type Severity Reaction Status Date / Time Penicillins Allergy Mild RASH Verified 01/08/25 13:45 clindamycin Allergy Unknown rash Verified 01/08/25 13:45 Review of Systems Constitutional: Constitutional: Reports as per HPI, Denies chills, Denies fatigue, Denies fever(s) and Denies weakness Eyes: Eyes: Reports as per HPI, Denies change in vision and Denies photophobia Comments: minimal swelling and bruising around left eye ENT: Reports as per HPI, Denies vertigo, Denies dizziness, Denies epistaxis and Denies sore throat Cardiovascular: Cardiovascular: Reports no additional cardiovascular complaints Respiratory: Respiratory: Reports no additional respiratory complaints Gastrointestinal: Gastrointestinal: Reports as per HPI, Denies nausea and Denies vomiting Genitourinary: Genitourinary: Reports no additional female genitourinary complaints Musculoskeletal: Musculoskeletal: Reports as per HPI, Reports arthralgias and Reports joint swelling Comments: left hand Integumentary/Breasts: Skin/Breast: Reports as per HPI Comments: bruising and swelling around left eye. Bruising and swelling left hand. Neurologic: Reports as per HPI, Denies numbness and Denies weakness Psychiatric: Psychiatric: Reports no additional psychiatric complaints Endocrine: Endocrine: Reports no additional endocrine complaints Hematologic/Lymphatic: Hematologic/Lymphatic: Reports no additional hematologic/lymphatic complaints Allergic/Immunologic: Allergic/Immunologic: Reports no additional allergic/immunologic complaints [facility] Past Medical History Medical History (Updated 01/08/25 @ 14:07 by ASHELY Moss-C) High cholesterol History of high blood pressure Social History Social History (Updated 03/09/24 @ 13:11 by Denisse Thomson MA) Smoking status: Never smoker Smoking end date: 06/22/70 Occupation/Education: retired Gender identity (if verbalized by the patient): Female Exam Const: General: healthy appearing and no acute distress Nutritional Appearance: well nourished Orientation/consciousness: patient oriented x3 Limitations: no limitations HENMT: Head: contusion left occipital Ears: external ears normal and TM's normal bilaterally Face/Nose/Sinus: Normal external nose present and Normal nares present Mouth: Yes Normal oral and palatal mucosa present Teeth and gingiva: dentition normal Throat: posterior oropharynx normal Other: minimal tenderness over left brow- no abnormality palpated Eyes: Conjunctivae: conjunctivae normal Pupils: Equal, round and reactive pupils present EOM: EOMs intact bilaterally Direct Ophthalmoscopy: no photophobia Neck: Neck: normal visual inspection and no lymphadenopathy Resp: Effort & Inspection: normal respiratory effort Auscultation: clear to auscultation bilaterally Cardio: Rate: regular rate Rhythm: regular rhythm Skin: Rashes: no rashes Wounds: no wounds Other: Diffuse deep purple bruising around left eye. minimal bruising noted over the left hand-palmar aspect and dorsal aspect. Neuro: General: patient oriented x3 and moves all extremities Cranial nerves: Yes Nystagmus not present Speech: normal speech Gait exam (Neuro): Normal gait present Extrem: Left upper extremity: hand abnormal to inspection, normal capillary refill, neuromotor exam normal, neurosensory exam normal, tendon exam normal, tenderness, abnormal ROM of finger and swelling Psych: Mental Status: mental status grossly normal Affect: normal affect Attitude: cooperative Course Course Level of Care: Express Care Visit Vital Signs Vital signs: Vital Signs Temperature 98.7 F 01/08/25 13:21 Pulse Rate 64 01/08/25 13:21 Respiratory Rate 18 01/08/25 13:21 Blood Pressure 151/51 H 01/08/25 13:21 Pulse Oximetry 99 01/08/25 13:21 Oxygen Delivery Room Air 01/08/25 13:21 Temperature 98.7 F 01/08/25 13:21 Pulse Rate 64 01/08/25 13:21 Respiratory Rate 18 01/08/25 13:21 Blood Pressure 151/51 H 01/08/25 13:21 Pulse Oximetry 99 01/08/25 13:21 Oxygen Delivery Room Air 01/08/25 13:21 MDM - Fall MDM Narrative Medical decision making narrative: x rays ordered-no head injury s/s noted. no loc Discharge instructions reviewed with patient, as well as provided in writing per nursing staff. The instructions also include specific and strict return/GO TO THE ER as well as f/u information. All questions have been answered, and the patient deny any further questions with discharge and discharge plan. Differential Diagnosis Differential diagnosis: Likely fracture of wrist, concussion with loss of consciousness, concussion without loss of consciousness and other ( hand fracture, finger fracture, orbital fracture, contusion) Medical Records Attestation: I reviewed the patient's medical records. Imaging Data Attestation: I personally reviewed and interpreted this imaging study as follows: My impression: no fracture abnormality seen Radiologist's impression: IMPRESSION: No acute osseous finding in the left hand. Reviewed, dictated and finalized at location K. IMPRESSION: No acute osseous finding in the orbits. If pain persists, or if clinical suspicion of injury is high, recommend CT of the face for further evaluation. Reviewed, dictated and finalized at location K. Discharge Plan Discharge Clinical Impression: Contusion of face, Contusion of left hand, Fall on stairs Patient Disposition: Home Condition: Stable Instructions: Antibiotic Form, Contusion in Adults (ED), Scalp Contusion in Adults (ED), Fall Prevention (ED) Additional Instructions: Xray result showed no fracture To control swelling and prevent further injury with [place] (protect, rest, ice and compression) -Protect: no weight bearing -Rest the injury site for a least a day or two and avoid inciting activity -Apply ICE to injury as many times a possible a day for 20 minutes at a time for the first 48hours or until swelling and inflammation have reduced. Elevate injured area above a heart level, if possible, for at least 24 hours -Compression: gently wrapping with an Jose F or other elastic bandage (don?t wrap tightly) For pain: alternate Acetaminophen(Tylenol) and Nonsteroidal anti-inflammatory agent (NSAIDs-ibuprofen) -Acetaminophen(Tylenol) 650-1000mg every 4-6hours with max of 4000mg/day - Nonsteroidal anti-inflammatory agent (NSAIDs-ibuprofen): 400mg every 4-6hours with max 2400mg/day Recheck or seek ER visit if the injured area is cool, pale, tingling, numbness, or new/severe pain with decrease sensation. Patient Language: Thai Prescriptions: No Action metformin 500 mg tablet 500 mg PO DAILY magnesium oxide 400 mg (241.3 mg magnesium) tablet 400 mg PO DAILY lisinopril 40 mg tablet 40 mg PO DAILY ezetimibe 10 mg tablet 10 mg PO DAILY hydrochlorothiazide 25 mg tablet 25 mg PO QAM anastrozole 1 mg tablet 1 mg PO DAILY rosuvastatin 40 mg tablet 40 mg PO DAILY carvedilol 6.25 mg tablet 6.25 mg PO BID Follow-up/Referrals: Franchesca,Sydnee A., [employer] PROFESSIONAL [Primary Care Provider] - Time of Disposition: 14:07
[2025-01-08 13:21] VITALS: BP 151/51; PULSE 64; RESP 18; TEMP 37.1; O2SAT 99
== END 2025-01-08 14:12 | disposition home or self-care (01) ==
PROVIDERS: Emergency Provider Nurse Practitioner Family; PCP Nurse Practitioner Family
DX: S05.12XA Contusion of eyeball and orbital tissues, left eye, initial encounter (principal); S60.222A Contusion of left hand, initial encounter; W10.9XXA Fall (on) (from) unspecified stairs and steps, initial encounter; I10 Essential (primary) hypertension; E78.00 Pure hypercholesterolemia, unspecified; Z87.891 Personal history of nicotine dependence
CPT/HCPCS: 70200; 73130; 99213; G0463